=== PATIENT | male | born 1975 | race Caucasian/White ===

== ENCOUNTER 2016-07-27 22:01 | Emergency (ER) | payer SELFPAY ==
[2016-07-27] MEDS ORDERED: ASPIRIN 81 MG TABLET, CHEWABLE PO ONE (22:44)
[2016-07-27] MEDS ORDERED: NORMAL SALINE 1000 ML 1,000 ML IV ONE ×2 (22:45)
[2016-07-27] MEDS ORDERED: IPRATROPIUM/ALBUTEROL 0.5-2.5 MG/3 ML AMPUL NEB ONE (22:46)
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
[2016-07-27 22:54] LABS: ABSOLUTE BASOPHILS # (AUTO) 0.1 10^3/uL (0.0-0.2); ABSOLUTE EOSINOPHILS # (AUTO) 0.3 10^3/uL (0.0-0.6); ABSOLUTE LYMPHOCYTES (AUTO) 3.4 10^3/uL (0.5-4.7); ABSOLUTE MONOCYTES (AUTO) 0.9 10^3/uL (0.1-1.4); ABSOLUTE NEUT (AUTO) 4.7 10^3/uL (1.7-8.2); BASOPHILS % (AUTO) 0.6 % (0-2); EOSINOPHILS % (AUTO) 3.3 % (0-6); HEMATOCRIT 45.1 % (37.9-51.0); HEMOGLOBIN 15.7 g/dL (13.5-17.0); LYMPHOCYTES % (AUTO) 36.3 % (13-45); MEAN CORPUSCULAR HEMOGLOBIN 33.7 pg (27.0-33.4); MEAN CORPUSCULAR HGB CONC 34.8 g/dL (32.0-36.0); MEAN CORPUSCULAR VOLUME 97 fl (80-97); MONOCYTES % (AUTO) 9.3 % (3-13); RED BLOOD COUNT 4.66 10^6/uL (4.35-5.55); RED CELL DISTRIBUTION WIDTH 13.3 % (11.5-14.0); SEGMENTED NEUTROPHILS % (AUTO) 50.5 % (42-78); WHITE BLOOD COUNT 9.4 10^3/uL (4.0-10.5)
[2016-07-27 23:07] LABS: ALANINE AMINOTRANSFERASE 20 U/L (21-72); ALBUMIN 4.1 g/dL (3.5-5.0); ALKALINE PHOSPHATASE 155 U/L (38-126); ANION GAP 13 (5-19); ASPARTATE AMINO TRANSFERASE 21 U/L (17-59); BILIRUBIN,DIRECT 0.2 mg/dL (0.0-0.4); BILIRUBIN,TOTAL 0.5 mg/dL (0.2-1.3); BLOOD UREA NITROGEN 10 mg/dL (7-20); CALCIUM 9.5 mg/dL (8.4-10.2); CARBON DIOXIDE 25 mmol/L (22-30); CHLORIDE 103 mmol/L (98-107); CREATINE KINASE 57 U/L (55-170); CREATININE RESULT 0.63 mg/dL (0.52-1.25); GLUCOSE 304 mg/dL (75-110); POTASSIUM 4.1 mmol/L (3.6-5.0); SODIUM 140.6 mmol/L (137-145); TOTAL PROTEIN 7.3 g/dL (6.3-8.2)
[2016-07-27 23:18] LABS: CREATINE KINASE MB 0.38 ng/mL (<4.55)
[2016-07-27 23:21] LABS: TROPONIN I < 0.012 ng/mL
[2016-07-28 02:07] VITALS: BP 104/52
--- NOTE | 2016-07-28 07:40 | EKG REPORT ---
SEVERITY:- BORDERLINE ECG - SINUS RHYTHM PROBABLE LEFT ATRIAL ABNORMALITY : Confirmed by: Cedric Bagley MD 28-Jul-2016 07:39:26
== END 2016-07-28 02:14 | disposition home or self-care (01) ==
LOC: ER 22:01
DX: R07.9 Chest pain, unspecified (principal); H53.9 Unspecified visual disturbance; F17.200 Nicotine dependence, unspecified, uncomplicated; R73.9 Hyperglycemia, unspecified
CPT/HCPCS: 93005; 94640; 99285; 96360; 96361; 36415; 82553; 82550; 85025; 80053; 84484; 71010; 70450; 93010; J7030; J7620

== ENCOUNTER 2017-05-13 15:40 | Emergency (ER) | payer SELFPAY ==
[2017-05-13] MEDS ORDERED: IPRATROPIUM/ALBUTEROL 0.5-2.5 MG/3 ML AMPUL NEB ONE (16:01)
[2017-05-13] MEDS ORDERED: HYDROCODONE BIT/HOMATROPINE 5-1.5 MG TABLET PO ONE (16:01)
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
--- NOTE | 2017-05-13 16:24 | RADIOLOGY REPORT (SQ) ---
EXAM DESCRIPTION: CHEST PA/LAT COMPLETED DATE/TIME: 05/13/2017 4:12 pm REASON FOR STUDY: cough , left lower lobe pain COMPARISON: Chest x-ray 11/03/2015, 07/27/2016. EXAM PARAMETERS: NUMBER OF VIEWS: two views TECHNIQUE: Digital Frontal and Lateral radiographic views of the chest acquired. RADIATION DOSE: NA LIMITATIONS: none FINDINGS: LUNGS AND PLEURA: No consolidation, pneumothorax or pleural effusion. MEDIASTINUM AND HILAR STRUCTURES: No masses or contour abnormalities. HEART AND VASCULAR STRUCTURES: Heart normal size. No evidence for failure. BONES: No acute findings. HARDWARE: None in the chest. IMPRESSION: No acute radiographic finding in the chest. TECHNICAL DOCUMENTATION: JOB ID: [id number] 2010 [employer]- All Rights Reserved
[2017-05-13 17:02] VITALS: BP 126/69
== END 2017-05-13 17:10 | disposition home or self-care (01) ==
LOC: ER 15:40
DX: J18.1 Lobar pneumonia, unspecified organism (principal); R07.89 Other chest pain; R05 Cough; R09.81 Nasal congestion; F17.210 Nicotine dependence, cigarettes, uncomplicated
CPT/HCPCS: 99406; 94640; 99283; 71046; J7620

== ENCOUNTER 2017-05-18 14:16 | Inpatient (IN) | payer SELFPAY ==
[2017-05-18] MEDS ORDERED: ASPIRIN 81 MG TABLET, CHEWABLE PO ONE (14:31)
[2017-05-18 14:52] LABS: ABSOLUTE BASOPHILS # (AUTO) 0.2 10^3/uL (0.0-0.2); ABSOLUTE EOSINOPHILS # (AUTO) 0.3 10^3/uL (0.0-0.6); ABSOLUTE LYMPHOCYTES (AUTO) 3.3 10^3/uL (0.5-4.7); ABSOLUTE MONOCYTES (AUTO) 1.1 10^3/uL (0.1-1.4); ABSOLUTE NEUT (AUTO) 11.2 10^3/uL (1.7-8.2); BASOPHILS % (AUTO) 1.3 % (0-2); EOSINOPHILS % (AUTO) 1.7 % (0-6); HEMATOCRIT 46.4 % (37.9-51.0); HEMOGLOBIN 15.9 g/dL (13.5-17.0); LYMPHOCYTES % (AUTO) 20.5 % (13-45); MEAN CORPUSCULAR HEMOGLOBIN 33.2 pg (27.0-33.4); MEAN CORPUSCULAR HGB CONC 34.4 g/dL (32.0-36.0); MEAN CORPUSCULAR VOLUME 97 fl (80-97); MONOCYTES % (AUTO) 6.9 % (3-13); PLATELET COUNT 400 10^3/uL (150-450); RED CELL DISTRIBUTION WIDTH 13.3 % (11.5-14.0); SEGMENTED NEUTROPHILS % (AUTO) 69.6 % (42-78); TOTAL CELLS COUNTED % (AUTO) 100 %; WHITE BLOOD COUNT 16.1 10^3/uL (4.0-10.5)
[2017-05-18] MEDS ORDERED: KETOROLAC TROMETHAMINE INJ/PF 30 MG/1 ML SDV IV ONE (14:57)
[2017-05-18] MEDS ORDERED: NORMAL SALINE 1000 ML 1,000 ML IV ONE ×3 (14:57→18:11)
[2017-05-18] MEDS ORDERED: ONDANSETRON HCL INJ/PF 4 MG/2 ML SDV IV ONE (15:02)
--- NOTE | 2017-05-18 15:04 | RADIOLOGY REPORT (SQ) ---
EXAM DESCRIPTION: CHEST PA/LAT COMPLETED DATE/TIME: 05/18/2017 2:54 pm REASON FOR STUDY: cp COMPARISON: 05/13/2017. EXAM PARAMETERS: NUMBER OF VIEWS: two views TECHNIQUE: Digital Frontal and Lateral radiographic views of the chest acquired. RADIATION DOSE: NA LIMITATIONS: Image is rotated. FINDINGS: LUNGS AND PLEURA: Streaky perihilar densities. Indistinct density in the left lung base. Possible left perihilar density. No pleural effusion. MEDIASTINUM AND HILAR STRUCTURES: No masses or contour abnormalities. HEART AND VASCULAR STRUCTURES: Heart normal size. No evidence for failure. BONES: No acute findings. HARDWARE: None in the chest. OTHER: No other significant finding. IMPRESSION: POSSIBLE VIRAL ILLNESS OR ATYPICAL INFECTION. SUSPECT DEVELOPING INFILTRATE IN THE LEFT PERIHILAR REGION AND LEFT LUNG BASE. TECHNICAL DOCUMENTATION: JOB ID: [id number] [employer]- All Rights Reserved
[2017-05-18 15:07] LABS: ALANINE AMINOTRANSFERASE 38 U/L (21-72); ALBUMIN 4.4 g/dL (3.5-5.0); ALKALINE PHOSPHATASE 91 U/L (38-126); ANION GAP 12 (5-19); ASPARTATE AMINO TRANSFERASE 24 U/L (17-59); BILIRUBIN,DIRECT 0.5 mg/dL (0.0-0.4); BILIRUBIN,TOTAL 0.6 mg/dL (0.2-1.3); BLOOD UREA NITROGEN 13 mg/dL (7-20); CARBON DIOXIDE 30 mmol/L (22-30); CHLORIDE 100 mmol/L (98-107); CREATINE KINASE 52 U/L (55-170); GLUCOSE 224 mg/dL (75-110); POTASSIUM 4.1 mmol/L (3.6-5.0); SODIUM 142.1 mmol/L (137-145); TOTAL PROTEIN 8.4 g/dL (6.3-8.2)
[2017-05-18 15:18] LABS: CREATINE KINASE MB 0.32 ng/mL (<4.55)
[2017-05-18 15:19] LABS: TROPONIN I < 0.012 ng/mL
--- NOTE | 2017-05-18 16:18 | RADIOLOGY REPORT (SQ) ---
EXAM DESCRIPTION: CTA CHEST COMPLETED DATE/TIME: 05/18/2017 3:56 pm REASON FOR STUDY: elevate didime COMPARISON: CT angio chest 05/23/2015 TECHNIQUE: CT scan of the chest performed using helical scanning technique with dynamic intravenous contrast injection. Images reviewed with lung, soft tissue and bone windows. Reconstructed coronal and sagittal MPR images reviewed. Additional 3 dimensional post-processing performed to develop Maximal Intensity Projection images (MD P). All images stored on PACS. All CT scanners at this facility use dose modulation, iterative reconstruction, and/or weight based d osing when appropriate to reduce radiation dose to as low as reasonably achievable (ALARA). [facility]: Dose Right [facility]: CareDose [facility]: Dose Right [facility]: Teradose 4D [facility]: [email or web address] CONTRAST TYPE AND DOSE: contrast/concentration: Isovue 370.00 mg/ml; Total Contrast Delivered: 80.0 ml; Total Saline Delivered: 80.0 ml Contrast bolus optimized for the pulmonary arteries. Not diagnostic for the aorta. RENAL FUNCTION: Creatinine 0.67 RADIATION DOSE: CT Rad equipment meets quality standard of care and radiation dose reduction techniq ues were employed. CTDIvol: 19.8 - 20.3 mGy. DLP: 740 mGy-cm. . LIMITATIONS: None. FINDINGS: LUNGS AND PLEURA: In the posterior aspect left lower lobe, axial image 45 through 52, ther e is a wedge-shaped peripheral areas consolidation worrisome for small pulmonary infarct. Trace left pleural effusion. Patchy airspace disease just above the left hemidiaphragm. Right lung well inflated and clear. AORTA AND GREAT VESSELS: No aneurysm. Contrast bolus not optimized for the aorta. HEART: No pericardial effusion. No significant coronary artery calcifications. PULMONARY ARTERIES: Small emboli are seen to the segmental left lower lobe pulmonary vessels. HILAR AND MEDIASTINAL STRUCTURES: No identified masses or abnormal nodes. HARDWARE: None in the chest. UPPER ABDOMEN: No significant findings. Limited exam. THYROID AND OTHER SOFT TISSUES: No masses. No adenopathy. BONES: No acute or significant finding. 3D MIPS: Confirm above findings. OTHER: No other significant finding. IMPRESSION: Study positive for small segmental pulmonary emboli to the left lower lobe. Patchy left basilar airspace disease with trace left pleural effusion COMMENT: Quality ID # [id number]: Final reports with documentation of one or more dose reduction techniques (e.g., Automated exposure control, adjustment of the mA and/or kV according to patient size, use of iterative reconstruction technique) TECHNICAL DOCUMENTATION: JOB ID: [id number] [employer]- All Rights Reserved
[2017-05-18] MEDS ORDERED: LEVOFLOXACIN 500 MG/D5W RTU 500 MG/100 ML RTUPB IV ONE (16:40)
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
[2017-05-18 17:18] LABS: PROTHROMBIN TIME 12.8 SEC (11.4-15.4)
[2017-05-18 17:19] LABS: PARTIAL THROMBOPLASTIN TIME 29.7 SEC (23.5-35.8)
[2017-05-18] MEDS: ENOXAPARIN SODIUM INJ 100 MG/1 ML DISP.SYRIN SUBCUT SCH (18:22)
--- NOTE | 2017-05-18 18:35 | EKG REPORT ---
SEVERITY:- BORDERLINE ECG - SINUS RHYTHM NONSPECIFIC ST-T CHANGES- INFERIOR LEADS : Confirmed by: Cedric Bagley MD 18-May-2017 18:34:30
[2017-05-18] MEDS ORDERED: ALBUTEROL SULFATE HFA (90 MCG/PUFF) 200 PUFF/8.5 GM MDI IH SCH (19:30)
[2017-05-18] MEDS ORDERED: DEXTROSE 40% GEL 15 GM TUBE PO PRN ×2 (19:31)
[2017-05-18] MEDS ORDERED: GLUCAGON,HUMAN RECOMB 1 MG INJ IM PRN (19:31)
[2017-05-18] MEDS ORDERED: DEXTROSE 50%-WATER 25 GM/50 ML DISP.SYRIN IV PRN ×2 (19:31)
[2017-05-18] MEDS ORDERED: NICOTINE 21 MG/24 HR PATCH.TD24 TD ONE (20:00)
[2017-05-18] MEDS ORDERED: NORMAL SALINE 1000 ML 1,000 ML IV PRN (20:00)
--- NOTE | 2017-05-18 20:00 | PDOC H&P ---
History of Present Illness Admission Date/PCP: 05/18/17 17:27 Patient complains of: pleuritic type chest pain, weakness History of Present Illness: IGNACIO LOPEZ is a 42 year old male who was seen in our ED a few days ago. He was discharged on a Z-Josias for an upper respiratory tract infection. Unfortunately over the next few days the patient began to feel worse. Began to have left-sided chest pain with inspiration. Became weaker. He came back to the ER via ambulance. The ER has diagnosed him with a pulmonary embolus after elevated d-dimer led to CT angiogram of the chest. He has also been diagnosed with pneumonia and has been started on Levaquin. His anticoagulation with Lovenox has been started as well. The patient is found to have elevated CBGs and no diagnosis of diabetes. His weakness has gotten worse over the last few days. It is nonspecific. No fevers or chills. He is coughing but has no sputum production at this time. 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 Smoking Status: Current Every Day Smoker Cigarettes Packs Per Day: 1.5 Frequency of Alcohol Use: None Hx Recreational Drug Use: No Drugs: None Hx Prescription Drug Abuse: No Past Social History Note: Patient is in the ER with his riki Up. Her phone number is [phone]. They live together locally. - Advance Directive Resuscitation Status: Full Code Family History Family History: CAD, Other - Patient states that his father and grandmother both with complications related to heart disease. He does not keep in touch with his family so otherwise does not know the history of his other family members. Parental Family History Reviewed: Yes Children Family History Reviewed: Yes Sibling(s) Family History Reviewed.: Yes Medication/Allergy Home Medications: No Home Medications 05/18/17 Allergies/Adverse Reactions: Penicillins Adverse Reaction (Severe, Verified 05/18/17 19:42) Unknown reaction oxycodone Adverse Reaction (Verified 05/18/17 19:42) Review of Systems Constitutional: PRESENT: fatigue Eyes: ABSENT: visual disturbances Ears: ABSENT: hearing changes Nose, Mouth, and Throat: ABSENT: headache(s) Cardiovascular: PRESENT: edema. ABSENT: chest pain, dyspnea on exertion Gastrointestinal: ABSENT: abdominal pain, constipation, diarrhea, nausea, vomiting Musculoskeletal: PRESENT: back pain Integumentary: ABSENT: wounds Neurological: PRESENT: weakness. ABSENT: confusion, focal weakness, numbness, syncope, tingling Psychiatric: ABSENT: anxiety, depression Endocrine: PRESENT: other - Patient states that he knows he has undiagnosed type 2 diabetes. Hematologic/Lymphatic: ABSENT: easy bleeding, easy bruising Physical Exam Vital Signs: Temp Pulse Resp BP Pulse Ox 31 H 128/76 H 93 05/18/17 18:01 05/18/17 18:01 05/18/17 18:01 General appearance: PRESENT: no acute distress, cooperative, disheveled, morbidly obese Head exam: PRESENT: atraumatic, normocephalic Eye exam: PRESENT: conjunctiva pink, EOMI. ABSENT: scleral icterus Ear exam: PRESENT: normal external ear exam. ABSENT: bleeding Mouth exam: PRESENT: moist, neck supple, tongue midline Neck exam: ABSENT: lymphadenopathy, tracheal deviation Respiratory exam: PRESENT: symmetrical, tachypnea, unlabored, wheezes, other - Decreased breath sounds left base.. ABSENT: accessory muscle use, chest wall tenderness Pulses: PRESENT: normal radial pulses Vascular exam: PRESENT: normal capillary refill GI/Abdominal exam: PRESENT: normal bowel sounds, soft. ABSENT: ascites, diminished bowel sounds, distended, firm, guarding, rebound, rigid, tenderness Rectal exam: PRESENT: deferred Extremities exam: ABSENT: pedal edema Musculoskeletal exam: PRESENT: ambulatory Neurological exam: PRESENT: alert, awake, oriented to person, oriented to place , oriented to time, oriented to situation, CN II-XII grossly intact Psychiatric exam: PRESENT: appropriate affect. ABSENT: agitated, anxious Skin exam: PRESENT: dry, intact. ABSENT: mottled Results Impressions: Chest X-Ray 05/18/17 14:31 IMPRESSION: POSSIBLE VIRAL ILLNESS OR ATYPICAL INFECTION. SUSPECT DEVELOPING INFILTRATE IN THE LEFT PERIHILAR REGION AND LEFT LUNG BASE. Chest/Abdomen CTA 05/18/17 15:18 IMPRESSION: Study positive for small segmental pulmonary emboli to the left lower lobe. Patchy left basilar airspace disease with trace left pleural effusion Assessment & Plan - Diagnosis (1) Type 2 diabetes mellitus Qualifiers: Diabetes mellitus complication status: with hyperglycemia Is this a current diagnosis for this admission?: Yes Plan: Patient states that his blood sugars run around 250. When they are lower he feels dizzy and weak and overall bad. I will check a hemoglobin A1c. We will put him on a diabetic diet. We will start him on acting insulin before meals and at bedtime and consider an oral agent tomorrow. I will order diabetic education. We discussed the importance of diabetic control and that early control can prevent significant life-threatening complications. (2) Chest pain Qualifiers: Chest pain type: chest pain on breathing Qualified Code(s): R07.1 - Chest pain on breathing; R07.81 - Pleurodynia Is this a current diagnosis for this admission?: Yes Plan: This is not severe. It is likely due to left lower lobe pneumonia as he has decreased breath sounds in the left base. I have ordered Tylenol 650 mg p.o. every 4 hours as needed pain 3-5. Patient had a negative troponin in the ER. I will order 2 more as this patient does have a history of significant coronary disease. (3) Pneumonia Qualifiers: Pneumonia type: due to unspecified organism Laterality: left Lung location: lower lobe of lung Qualified Code(s): J18.1 - Lobar pneumonia, unspecified organism Is this a current diagnosis for this admission?: Yes Plan: Patient has decreased breath sounds in the left lung base, he was treated with a Z-Josias for URI and worsened with that, he feels weak and is coughing. We will continue with Levaquin at 750 mg p.o. daily possibly for 7 days total. (4) Pulmonary embolism Is this a current diagnosis for this admission?: Yes Plan: Elevated d-dimer and positive CTA, small PE, unknown acuity. Given these things he will be treated with Lovenox which has been dosed with pharmacy and the ER physician. I will continue that dosing. We may need case management on board to help with the cost of the Lovenox. (5) Coronary artery disease Is this a current diagnosis for this admission?: Yes Plan: Patient reports he has had 2 MIs in the past. He is not on cardiac meds. He also has undiagnosed diabetes. He has chest pain but it is pleuritic and I do not think it is cardiac however 2 troponins are pending. Protein was negative. He has reasons other than coronary artery disease for his chest pain. I have consulted social work to assist with possible sliding scale clinic and reduce cost medications. I discussed the dangers of untreated heart disease. (6) Tobacco use disorder, continuous Is this a current diagnosis for this admission?: Yes Plan: Patient not interested in long-term cessation. I started a nicotine patch 21 mg every 24 hours. (7) Obesity Qualifiers: Obesity type: due to excess calories Serious obesity comorbidity presence: with serious comorbidity Is this a current diagnosis for this admission?: Yes Plan: Patient and I discussed treatment of diabetes, tobacco cessation, heart disease and I felt that he was overwhelmed enough so that bringing up the importance of weight loss would not have been appropriate. Possibly tomorrow or before discharge weight loss and its importance can be discussed with this patient. (8) Tachycardia with heart rate 121-140 beats per minute Is this a current diagnosis for this admission?: Yes Plan: Patient had a heart rate in the 130s in the ER. This is probably related to a combination of his pneumonia and pulmonary embolus. However he does have coronary artery disease is untreated and we are checking troponins. Being admitted on telemetry. IV fluids will be ordered. - Time Time Spent: Greater than 70 Minutes Smoking Cessation Education: 3 to 10 minutes Medications reviewed and adjusted accordingly: Yes Anticipated discharge: Home Within: within 24 hours - Inpatient Certification Based on my medical assessment, after consideration of the patient's comorbidities, presenting symptoms, or acuity I expect that the services needed warrant INPATIENT care.: Yes I certify that my determination is in accordance with my understanding of Medicare's requirements for reasonable and necessary INPATIENT services [42 CFR 412.3e].: Yes Medical Necessity: Significant Comorbidiites Make Outpatient Treatment Too Risky , Need Close Monitoring Due to Risk of Patient Decompensation, Need For IV Fluids, Need For Continuous Telemetry Monitoring Post Hospital Care: D/C Insurance Claim Representative Documentation
[2017-05-18] MEDS: IPRATROPIUM/ALBUTEROL 0.5-2.5 MG/3 ML AMPUL NEB PRN (20:21)
[2017-05-18 20:29] LABS: CHOLESTEROL 220.67 mg/dL (0-200); TRIGLYCERIDES 256 mg/dL (<150)
[2017-05-18 20:40] LABS: DIRECT LDL 144 mg/dL (<100)
[2017-05-18 20:43] LABS: VLDL CHOLESTEROL 51.2 mg/dL (10-31)
[2017-05-18] MEDS: ACETAMINOPHEN 325 MG TABLET PO PRN (21:29)
[2017-05-19] MEDS: IPRATROPIUM/ALBUTEROL 0.5-2.5 MG/3 ML AMPUL NEB PRN ×6 (00:08→20:11)
[2017-05-19] MEDS ORDERED: INFLUENZA ADLT QUAD (36MOS+) 2017-18 VAC 0.5 ML SYR IM PRN (01:18)
[2017-05-19 02:32] LABS: CREATINE KINASE MB < 0.22 ng/mL (<4.55); TROPONIN I < 0.012 ng/mL
[2017-05-19] MEDS: ACETAMINOPHEN 325 MG TABLET PO PRN ×2 (02:50→10:35)
[2017-05-19] MEDS ORDERED: MORPHINE SULFATE 10 MG/ML INJ IV ONE (03:00)
[2017-05-19 05:30] LABS: HEMATOCRIT 39.1 % (37.9-51.0); MEAN CORPUSCULAR HEMOGLOBIN 32.7 pg (27.0-33.4); MEAN CORPUSCULAR VOLUME 96 fl (80-97); PLATELET COUNT 254 10^3/uL (150-450); RED BLOOD COUNT 4.07 10^6/uL (4.35-5.55); WHITE BLOOD COUNT 17.5 10^3/uL (4.0-10.5)
[2017-05-19 05:45] LABS: HEMOGLOBIN 13.3 g/dL (13.5-17.0)
[2017-05-19 05:55] LABS: ANION GAP 8 (5-19); BLOOD UREA NITROGEN 10 mg/dL (7-20); CALCIUM 9.1 mg/dL (8.4-10.2); CARBON DIOXIDE 26 mmol/L (22-30); CHLORIDE 100 mmol/L (98-107); CREATINE KINASE 34 U/L (55-170); GLUCOSE 370 mg/dL (75-110); POTASSIUM 3.9 mmol/L (3.6-5.0); SODIUM 134.1 mmol/L (137-145)
[2017-05-19] MEDS: INSULIN LISPRO 100 UNIT/ML 3 ML VIAL SUBCUT PRN ×4 (08:44→21:40)
--- NOTE | 2017-05-19 08:52 | EKG REPORT ---
SEVERITY:- BORDERLINE ECG - SINUS TACHYCARDIA PROBABLE LEFT ATRIAL ABNORMALITY : Confirmed by: Cedric Bagley MD 19-May-2017 08:51:31
[2017-05-19 09:09] LABS: CREATINE KINASE MB < 0.22 ng/mL (<4.55); TROPONIN I < 0.012 ng/mL
[2017-05-19] MEDS: LEVOFLOXACIN 750 MG TABLET PO SCH (10:28)
[2017-05-19] MEDS: NICOTINE 21 MG/24 HR PATCH.TD24 TD SCH (10:28)
[2017-05-19] MEDS: ENOXAPARIN SODIUM INJ 100 MG/1 ML DISP.SYRIN SUBCUT SCH ×2 (10:28→21:39)
--- NOTE | 2017-05-19 14:19 | PDOC PROGRESS REPORT ---
Subjective Progress Note for:: 05/19/17 Subjective:: Doing better from respiratory standpoint. Major complaint is pain with deep breaths and left shoulder pain. Continues to have very elevated blood sugars. states that he has been on oral diabetes meds but never on insulin. Denies fevers, chills, CP, abdominal pain/NV Reason For Visit: TACHYCARDIA,PE,PNEUMONIA Physical Exam Vital Signs: Temp Pulse Resp BP Pulse Ox 99.0 F 106 H 20 128/71 H 94 05/19/17 12:36 05/19/17 12:36 05/19/17 12:36 05/19/17 12:36 05/19/17 12:36 Intake & Output 05/18/17 05/19/17 05/20/17 06:59 06:59 06:59 Intake Total 644 598 Output Total 0 Balance 644 598 General appearance: PRESENT: no acute distress, obese Head exam: PRESENT: atraumatic, normocephalic Mouth exam: PRESENT: moist Respiratory exam: PRESENT: decreased breath sounds - L>R, wheezes - Occasional Cardiovascular exam: PRESENT: RRR, tachycardia GI/Abdominal exam: PRESENT: soft. ABSENT: distended, tenderness Neurological exam: PRESENT: alert, awake, CN II-XII grossly intact Results Laboratory Results: 05/19/17 04:48 05/19/17 04:48 05/19/17 05/19/17 04:48 04:48 WBC 17.5 H RBC 4.07 L Hgb 13.3 L D Hct 39.1 MCV 96 MCH 32.7 MCHC 34.0 RDW 13.0 Plt Count 254 Sodium 134.1 L Potassium 3.9 Chloride 100 Carbon Dioxide 26 Anion Gap 8 BUN 10 Creatinine 0.73 Est GFR ( Amer) > 60 Est GFR (Non-Af Amer) > 60 Glucose 370 H Calcium 9.1 05/18/17 05/19/17 05/19/17 19:17 01:48 01:48 Creatine Kinase 37 L CK-MB (CK-2) < 0.22 Troponin I < 0.012 < 0.012 05/19/17 05/19/17 04:48 08:23 Creatine Kinase 34 L CK-MB (CK-2) < 0.22 Troponin I < 0.012 Impressions: Chest X-Ray 05/18/17 14:31 IMPRESSION: POSSIBLE VIRAL ILLNESS OR ATYPICAL INFECTION. SUSPECT DEVELOPING INFILTRATE IN THE LEFT PERIHILAR REGION AND LEFT LUNG BASE. Chest/Abdomen CTA 05/18/17 15:18 IMPRESSION: Study positive for small segmental pulmonary emboli to the left lower lobe. Patchy left basilar airspace disease with trace left pleural effusion Assessment & Plan - Diagnosis (1) Pneumonia Qualifiers: Pneumonia type: due to unspecified organism Laterality: left Lung location: lower lobe of lung Qualified Code(s): J18.1 - Lobar pneumonia, unspecified organism Is this a current diagnosis for this admission?: Yes Plan: Known left lobe infiltrate on CXR, previously treated with Zpak for URI - Blood cultures pending - Continue Levaquin 750mg PO for 7-10 days - For pain, likely multifactorial given known PE's and PNA: added Ultram 50mg PO q6 hours PRN, also has tylenol ordered - Wean down 02 as tolerated (2) Obesity Qualifiers: Obesity type: due to excess calories Serious obesity comorbidity presence: with serious comorbidity Is this a current diagnosis for this admission?: Yes (3) Type 2 diabetes mellitus Qualifiers: Diabetes mellitus complication status: with hyperglycemia Is this a current diagnosis for this admission?: Yes (4) Pulmonary embolism Qualifiers: Pulmonary embolism type: other Chronicity: unspecified Acute cor pulmonale presence: without acute cor pulmonale Qualified Code(s): I26.99 - Other pulmonary embolism without acute cor pulmonale Is this a current diagnosis for this admission?: Yes Plan: CTA PE with small subsegmental clot in LLL, etiology unclear. - Currently on Lovenox - This is likely an incidental finding, however agree with continuation of AC for now. - Oral agent (NOAC) may be appropriate at discharge (5) Chest wall pain Is this a current diagnosis for this admission?: Yes Plan: Pleurtic in nature. Troponin negative * 3. - Time Time Spent with patient: Less than 15 minutes Anticipated discharge: Home Within: within 48 hours
[2017-05-19] MEDS ORDERED: GLUCAGON,HUMAN RECOMB 1 MG INJ IM PRN (14:25)
[2017-05-19] MEDS ORDERED: DEXTROSE 40% GEL 15 GM TUBE PO PRN ×2 (14:25)
[2017-05-19] MEDS ORDERED: DEXTROSE 50%-WATER 25 GM/50 ML DISP.SYRIN IV PRN ×2 (14:25)
[2017-05-19] MEDS: TRAMADOL HCL 50 MG TABLET PO PRN (15:12)
[2017-05-19 15:58] LABS: CREATINE KINASE MB < 0.22 ng/mL (<4.55); TROPONIN I < 0.012 ng/mL
[2017-05-19] MEDS: ATORVASTATIN CALCIUM 80 MG TABLET PO SCH (21:39)
[2017-05-19] MEDS ORDERED: INSULIN GLARGINE,HUM.REC.ANLOG 300 UNIT/3 ML INSULN.PEN SUBCUT SCH (22:00)
[2017-05-20 04:52] LABS: HEMATOCRIT 41.6 % (37.9-51.0); HEMOGLOBIN 14.3 g/dL (13.5-17.0); MEAN CORPUSCULAR HEMOGLOBIN 33.2 pg (27.0-33.4); MEAN CORPUSCULAR HGB CONC 34.5 g/dL (32.0-36.0); MEAN CORPUSCULAR VOLUME 96 fl (80-97); PLATELET COUNT 237 10^3/uL (150-450); RED BLOOD COUNT 4.32 10^6/uL (4.35-5.55); RED CELL DISTRIBUTION WIDTH 13.1 % (11.5-14.0); WHITE BLOOD COUNT 16.2 10^3/uL (4.0-10.5)
[2017-05-20 05:27] LABS: ANION GAP 10 (5-19); BLOOD UREA NITROGEN 7 mg/dL (7-20); CALCIUM 9.3 mg/dL (8.4-10.2); CARBON DIOXIDE 26 mmol/L (22-30); CHLORIDE 99 mmol/L (98-107); GLUCOSE 225 mg/dL (75-110); POTASSIUM 3.9 mmol/L (3.6-5.0); SODIUM 135.3 mmol/L (137-145)
[2017-05-20] MEDS: TRAMADOL HCL 50 MG TABLET PO PRN (06:00)
[2017-05-20] MEDS: ENOXAPARIN SODIUM INJ 100 MG/1 ML DISP.SYRIN SUBCUT SCH ×2 (09:45→21:52)
[2017-05-20] MEDS: INSULIN LISPRO 100 UNIT/ML 3 ML VIAL SUBCUT PRN ×4 (09:45→21:52)
[2017-05-20] MEDS: ACETAMINOPHEN 325 MG TABLET PO PRN ×2 (09:45→17:10)
[2017-05-20] MEDS: LEVOFLOXACIN 750 MG TABLET PO SCH (09:45)
[2017-05-20] MEDS: NICOTINE 21 MG/24 HR PATCH.TD24 TD SCH (09:45)
--- NOTE | 2017-05-20 16:54 | PDOC PROGRESS REPORT ---
Subjective Progress Note for:: 05/20/17 Subjective:: About the same from respiratory standpoint compared to 05/19. Continue to endorse pain with deep breaths and left shoulder pain. Improved blood sugars wtih Lantus. Denies fevers, chills, CP, abdominal pain/NV. Willing to work with PT. Appetite good. Reason For Visit: TACHYCARDIA,PE,PNEUMONIA Physical Exam Vital Signs: Temp Pulse Resp BP Pulse Ox 98.4 F 112 H 18 122/63 93 05/20/17 15:24 05/20/17 15:58 05/20/17 15:58 05/20/17 15:24 05/20/17 15:58 Intake & Output 05/19/17 05/20/17 05/21/17 06:59 06:59 06:59 Intake Total 644 3764 572 Output Total 0 0 Balance 644 3764 572 Weight 97.4 kg Results Laboratory Results: 05/20/17 04:07 05/20/17 04:07 05/20/17 05/20/17 04:07 04:07 WBC 16.2 H RBC 4.32 L Hgb 14.3 Hct 41.6 MCV 96 MCH 33.2 MCHC 34.5 RDW 13.1 Plt Count 237 Sodium 135.3 L Potassium 3.9 Chloride 99 Carbon Dioxide 26 Anion Gap 10 BUN 7 Creatinine 0.56 Est GFR ( Amer) > 60 Est GFR (Non-Af Amer) > 60 Glucose 225 H Calcium 9.3 05/18/17 05/19/17 05/19/17 19:17 01:48 01:48 Creatine Kinase 37 L CK-MB (CK-2) < 0.22 Troponin I < 0.012 < 0.012 05/19/17 05/19/17 05/19/17 04:48 08:23 14:51 Creatine Kinase 34 L 29 L CK-MB (CK-2) < 0.22 Troponin I < 0.012 05/19/17 14:51 Creatine Kinase CK-MB (CK-2) < 0.22 Troponin I < 0.012 Impressions: Chest X-Ray 05/18/17 14:31 IMPRESSION: POSSIBLE VIRAL ILLNESS OR ATYPICAL INFECTION. SUSPECT DEVELOPING INFILTRATE IN THE LEFT PERIHILAR REGION AND LEFT LUNG BASE. Chest/Abdomen CTA 05/18/17 15:18 IMPRESSION: Study positive for small segmental pulmonary emboli to the left lower lobe. Patchy left basilar airspace disease with trace left pleural effusion Assessment & Plan - Diagnosis (1) Pneumonia Qualifiers: Pneumonia type: due to unspecified organism Laterality: left Lung location: lower lobe of lung Qualified Code(s): J18.1 - Lobar pneumonia, unspecified organism Is this a current diagnosis for this admission?: Yes Plan: Known left lobe infiltrate on CXR, previously treated with Zpak for URI - Blood cultures pending - Continue Levaquin 750mg PO for 7-10 days - For pain, likely multifactorial given known PE's and PNA: continue Ultram 50mg PO q6 hours PRN, also has tylenol ordered - Wean down 02 as tolerated (2) Obesity Qualifiers: Obesity type: due to excess calories Serious obesity comorbidity presence: with serious comorbidity Is this a current diagnosis for this admission?: Yes Plan: Counseled on weight loss and healthy diet (3) Type 2 diabetes mellitus Qualifiers: Diabetes mellitus complication status: with hyperglycemia Is this a current diagnosis for this admission?: Yes Plan: Blood sugars have been elevated 200-300, Hg A1c 12/6 on 2 - Started on Lantus 20U qhs on 05/19, mild improvement - Will increased to Lantus 30u on 05/20 + LDISS - Continue carb consistent diet (4) Pulmonary embolism Qualifiers: Pulmonary embolism type: other Chronicity: unspecified Acute cor pulmonale presence: without acute cor pulmonale Qualified Code(s): I26.99 - Other pulmonary embolism without acute cor pulmonale Is this a current diagnosis for this admission?: Yes Plan: CTA PE with small subsegmental clot in LLL, etiology unclear. - Currently on Lovenox - This is likely an incidental finding, however agree with continuation of AC for now. - Oral agent (NOAC) may be appropriate at discharge (5) Chest wall pain Is this a current diagnosis for this admission?: Yes Plan: Pleurtic in nature. Troponin negative * 3. - Time Time Spent with patient: 15-24 minutes Anticipated discharge: Home with Homehealth Within: within 48 hours
[2017-05-20] MEDS: IPRATROPIUM/ALBUTEROL 0.5-2.5 MG/3 ML AMPUL NEB PRN (18:31)
[2017-05-20] MEDS: ATORVASTATIN CALCIUM 80 MG TABLET PO SCH (21:52)
[2017-05-20] MEDS: INSULIN GLARGINE,HUM.REC.ANLOG 300 UNIT/3 ML INSULN.PEN SUBCUT SCH (21:53)
[2017-05-21] MEDS: ACETAMINOPHEN 325 MG TABLET PO PRN ×2 (00:25→06:17)
[2017-05-21 04:59] LABS: HEMATOCRIT 39.5 % (37.9-51.0); HEMOGLOBIN 13.7 g/dL (13.5-17.0); MEAN CORPUSCULAR HEMOGLOBIN 33.3 pg (27.0-33.4); MEAN CORPUSCULAR HGB CONC 34.6 g/dL (32.0-36.0); MEAN CORPUSCULAR VOLUME 96 fl (80-97); PLATELET COUNT 280 10^3/uL (150-450); RED BLOOD COUNT 4.11 10^6/uL (4.35-5.55); WHITE BLOOD COUNT 12.8 10^3/uL (4.0-10.5)
[2017-05-21 05:24] LABS: ANION GAP 14 (5-19); BLOOD UREA NITROGEN 14 mg/dL (7-20); CALCIUM 8.9 mg/dL (8.4-10.2); CARBON DIOXIDE 25 mmol/L (22-30); CHLORIDE 96 mmol/L (98-107); GLUCOSE 207 mg/dL (75-110); POTASSIUM 3.7 mmol/L (3.6-5.0); SODIUM 134.8 mmol/L (137-145)
[2017-05-21] MEDS: IPRATROPIUM/ALBUTEROL 0.5-2.5 MG/3 ML AMPUL NEB PRN ×2 (05:32→07:47)
[2017-05-21] MEDS ORDERED: HYDROCODONE BIT/HOMATROPINE 5-1.5 MG TABLET PO PRN (10:28)
[2017-05-21] MEDS: LEVOFLOXACIN 750 MG TABLET PO SCH (10:37)
[2017-05-21] MEDS: APIXABAN 5 MG TABLET PO SCH ×2 (10:37→21:53)
[2017-05-21] MEDS: NICOTINE 21 MG/24 HR PATCH.TD24 TD SCH (10:38)
[2017-05-21] MEDS: TRAMADOL HCL 50 MG TABLET PO PRN (11:39)
[2017-05-21 11:58] LABS: APPEARANCE,URINE CLEAR; BILIRUBIN,URINE NEGATIVE (NEGATIVE); COLOR,URINE YELLOW; GLUCOSE, URINE >=500 mg/dL (NEGATIVE); KETONES,URINE 80 mg/dL (NEGATIVE); LEUKOCYTE ESTERASE,URINE NEGATIVE (NEGATIVE); NITRITE,URINE NEGATIVE (NEGATIVE); PROTEIN,URINE NEGATIVE (NEGATIVE); URINE SPECIFIC GRAVITY 1.026; UROBILINOGEN,URINE NEGATIVE mg/dL (<2.0)
[2017-05-21] MEDS: INSULIN LISPRO 100 UNIT/ML 3 ML VIAL SUBCUT PRN ×3 (12:40→21:58)
[2017-05-21] MEDS: BUDESONIDE NEB 0.5 MG/2 ML AMPUL NEB SCH ×2 (13:39→19:53)
[2017-05-21] MEDS: IPRATROPIUM/ALBUTEROL 0.5-2.5 MG/3 ML AMPUL NEB SCH ×2 (13:39→19:53)
[2017-05-21] MEDS ORDERED: ONDANSETRON HCL INJ/PF 4 MG/2 ML SDV IV PRN (14:02)
--- NOTE | 2017-05-21 14:27 | PDOC PROGRESS REPORT ---
Subjective Progress Note for:: 05/21/17 Subjective:: Patient complains of cough and bilateral chest pain. Patient does not have health insurance Review of systems All organ systems evaluated and negative except as in subjective All significant laboratories and diagnostics have been reviewed Reason For Visit: TACHYCARDIA,PE,PNEUMONIA Physical Exam Vital Signs: Temp Pulse Resp BP Pulse Ox 97.6 F 105 H 24 H 123/66 94 05/21/17 08:30 05/21/17 13:39 05/21/17 13:39 05/21/17 08:30 05/21/17 13:39 Intake & Output 05/20/17 05/21/17 05/22/17 06:59 06:59 06:59 Intake Total 3764 2132 350 Output Total 0 400 Balance 3764 1732 350 Weight 97.4 kg 96.4 kg General appearance: PRESENT: cooperative, obese Head exam: PRESENT: atraumatic, normocephalic Eye exam: PRESENT: EOMI, PERRLA Ear exam: PRESENT: normal external ear exam Mouth exam: PRESENT: moist Neck exam: PRESENT: full ROM. ABSENT: JVD, lymphadenopathy, tenderness Respiratory exam: PRESENT: crackles, decreased breath sounds, tachypnea Cardiovascular exam: PRESENT: RRR. ABSENT: diastolic murmur, systolic murmur Vascular exam: PRESENT: normal capillary refill GI/Abdominal exam: PRESENT: normal bowel sounds, soft. ABSENT: tenderness Extremities exam: PRESENT: full ROM. ABSENT: joint swelling, pedal edema Musculoskeletal exam: PRESENT: ambulatory Neurological exam: PRESENT: alert, awake, oriented to person, oriented to place , oriented to time, oriented to situation, CN II-XII grossly intact Psychiatric exam: PRESENT: appropriate affect, normal mood Skin exam: PRESENT: intact, normal color Results Laboratory Results: 05/21/17 04:05 05/21/17 04:05 05/21/17 05/21/17 05/21/17 04:05 04:05 11:40 WBC 12.8 H RBC 4.11 L Hgb 13.7 Hct 39.5 MCV 96 MCH 33.3 MCHC 34.6 RDW 13.0 Plt Count 280 Sodium 134.8 L Potassium 3.7 Chloride 96 L Carbon Dioxide 25 Anion Gap 14 BUN 14 Creatinine 0.55 Est GFR ( Amer) > 60 Est GFR (Non-Af Amer) > 60 Glucose 207 H Calcium 8.9 Urine Color YELLOW Urine Appearance CLEAR Urine pH 6.0 Ur Specific [place] 1.026 Urine Protein NEGATIVE Urine Glucose (UA) >=500 H Urine Ketones 80 H Urine Blood NEGATIVE Urine Nitrite NEGATIVE Ur Leukocyte Esterase NEGATIVE Urine WBC (Auto) 1 Urine RBC (Auto) 0 05/18/17 05/19/17 05/19/17 19:17 01:48 01:48 Creatine Kinase 37 L CK-MB (CK-2) < 0.22 Troponin I < 0.012 < 0.012 05/19/17 05/19/17 05/19/17 04:48 08:23 14:51 Creatine Kinase 34 L 29 L CK-MB (CK-2) < 0.22 Troponin I < 0.012 05/19/17 14:51 Creatine Kinase CK-MB (CK-2) < 0.22 Troponin I < 0.012 Impressions: Chest X-Ray 05/18/17 14:31 IMPRESSION: POSSIBLE VIRAL ILLNESS OR ATYPICAL INFECTION. SUSPECT DEVELOPING INFILTRATE IN THE LEFT PERIHILAR REGION AND LEFT LUNG BASE. Chest/Abdomen CTA 05/18/17 15:18 IMPRESSION: Study positive for small segmental pulmonary emboli to the left lower lobe. Patchy left basilar airspace disease with trace left pleural effusion Assessment & Plan - Diagnosis (1) Chest pain Qualifiers: Chest pain type: chest pain on breathing Qualified Code(s): R07.1 - Chest pain on breathing; R07.81 - Pleurodynia Is this a current diagnosis for this admission?: Yes Plan: Musculoskeletal and secondary to cough. To provide anti-tussive. Request incentive spirometer (2) Pneumonia Qualifiers: Pneumonia type: due to unspecified organism Laterality: left Lung location: lower lobe of lung Qualified Code(s): J18.1 - Lobar pneumonia, unspecified organism Is this a current diagnosis for this admission?: Yes Plan: Continue Levaquin p.o. (3) Pulmonary embolism Qualifiers: Pulmonary embolism type: other Chronicity: acute Acute cor pulmonale presence: without acute cor pulmonale Qualified Code(s): I26.99 - Other pulmonary embolism without acute cor pulmonale Is this a current diagnosis for this admission?: Yes Plan: To discontinue Lovenox subcu and placed on Eliquis. To consult case management to assist since does not have insurance (4) Tobacco use disorder, continuous Is this a current diagnosis for this admission?: Yes Plan: Educated about quitting. Continue nicotine patch (5) Type 2 diabetes mellitus Qualifiers: Diabetes mellitus complication status: with hyperglycemia Is this a current diagnosis for this admission?: Yes Plan: Continue current management - Time Time Spent with patient: 15-24 minutes Medications reviewed and adjusted accordingly: Yes Anticipated discharge: Home Within: within 48 hours - Inpatient Certification Based on my medical assessment, after consideration of the patient's comorbidities, presenting symptoms, or acuity I expect that the services needed warrant INPATIENT care.: Yes I certify that my determination is in accordance with my understanding of Medicare's requirements for reasonable and necessary INPATIENT services [42 CFR 412.3e].: Yes Medical Necessity: Need Close Monitoring Due to Risk of Patient Decompensation
[2017-05-21] MEDS: BENZONATATE 100 MG CAPSULE PO SCH ×2 (16:25→21:54)
[2017-05-21] MEDS: ATORVASTATIN CALCIUM 80 MG TABLET PO SCH (21:53)
[2017-05-21] MEDS: LACTULOSE SYRUP 20 GM/30 ML UDCUP PO SCH (21:54)
[2017-05-21] MEDS: INSULIN GLARGINE,HUM.REC.ANLOG 300 UNIT/3 ML INSULN.PEN SUBCUT SCH (21:55)
[2017-05-22] MEDS: BUDESONIDE NEB 0.5 MG/2 ML AMPUL NEB SCH ×4 (02:37→21:04)
[2017-05-22] MEDS: TRAMADOL HCL 50 MG TABLET PO PRN (04:39)
[2017-05-22] MEDS: BENZONATATE 100 MG CAPSULE PO SCH ×3 (06:29→22:42)
[2017-05-22] MEDS: IPRATROPIUM/ALBUTEROL 0.5-2.5 MG/3 ML AMPUL NEB SCH ×3 (08:02→21:04)
[2017-05-22] MEDS: INSULIN LISPRO 100 UNIT/ML 3 ML VIAL SUBCUT PRN ×4 (08:40→22:42)
[2017-05-22] MEDS: LEVOFLOXACIN 750 MG TABLET PO SCH (10:14)
[2017-05-22] MEDS: NICOTINE 21 MG/24 HR PATCH.TD24 TD SCH (10:14)
[2017-05-22] MEDS: LACTULOSE SYRUP 20 GM/30 ML UDCUP PO SCH ×2 (10:15→22:43)
[2017-05-22] MEDS: APIXABAN 5 MG TABLET PO SCH ×2 (10:15→22:43)
[2017-05-22] MEDS ORDERED: FUROSEMIDE INJ/PF 20 MG/2 ML SDV IV ONE (13:47)
--- NOTE | 2017-05-22 13:54 | PDOC PROGRESS REPORT ---
Subjective Progress Note for:: 05/22/17 Subjective:: Patient refers that pain and cough is better. Nurse reported that patient had been requiring up to 5 L of O2 since desaturates. Talk to case management to assist with health insurance issues and to get assistance for Eliquis Review of systems All organ systems evaluated and negative except as in subjective All significant laboratories and diagnostics have been reviewed Reason For Visit: TACHYCARDIA,PE,PNEUMONIA Physical Exam Vital Signs: Temp Pulse Resp BP Pulse Ox 98.4 F 102 H 16 128/82 H 96 05/22/17 11:42 05/22/17 11:42 05/22/17 11:42 05/22/17 11:42 05/22/17 11:42 Intake & Output 05/21/17 05/22/17 05/23/17 06:59 06:59 06:59 Intake Total 2132 1137 Output Total 400 Balance 1732 1137 Weight 96.4 kg General appearance: PRESENT: cooperative, morbidly obese Head exam: PRESENT: atraumatic, normocephalic Eye exam: PRESENT: conjunctiva pink, EOMI, PERRLA Ear exam: PRESENT: normal external ear exam Mouth exam: PRESENT: moist Neck exam: PRESENT: full ROM. ABSENT: JVD Respiratory exam: PRESENT: clear to auscultation nevaeh Cardiovascular exam: PRESENT: RRR. ABSENT: diastolic murmur, systolic murmur Vascular exam: PRESENT: normal capillary refill GI/Abdominal exam: PRESENT: normal bowel sounds, soft. ABSENT: tenderness Extremities exam: PRESENT: full ROM. ABSENT: pedal edema Musculoskeletal exam: PRESENT: ambulatory Neurological exam: PRESENT: alert, awake, oriented to person, oriented to place , oriented to time, oriented to situation, CN II-XII grossly intact Psychiatric exam: PRESENT: appropriate affect, normal mood Skin exam: PRESENT: intact, normal color Results Laboratory Results: 05/21/17 04:05 05/21/17 04:05 05/18/17 05/19/17 05/19/17 19:17 01:48 01:48 Creatine Kinase 37 L CK-MB (CK-2) < 0.22 Troponin I < 0.012 < 0.012 05/19/17 05/19/17 05/19/17 04:48 08:23 14:51 Creatine Kinase 34 L 29 L CK-MB (CK-2) < 0.22 Troponin I < 0.012 05/19/17 14:51 Creatine Kinase CK-MB (CK-2) < 0.22 Troponin I < 0.012 Impressions: Chest X-Ray 05/18/17 14:31 IMPRESSION: POSSIBLE VIRAL ILLNESS OR ATYPICAL INFECTION. SUSPECT DEVELOPING INFILTRATE IN THE LEFT PERIHILAR REGION AND LEFT LUNG BASE. Chest/Abdomen CTA 05/18/17 15:18 IMPRESSION: Study positive for small segmental pulmonary emboli to the left lower lobe. Patchy left basilar airspace disease with trace left pleural effusion Assessment & Plan - Diagnosis (1) Chest pain Qualifiers: Chest pain type: chest pain on breathing Qualified Code(s): R07.1 - Chest pain on breathing; R07.81 - Pleurodynia Is this a current diagnosis for this admission?: Yes Plan: Musculoskeletal and secondary to cough. Reorder incentive spirometer and continue antitussive medication (2) Pneumonia Qualifiers: Pneumonia type: due to unspecified organism Laterality: left Lung location: lower lobe of lung Qualified Code(s): J18.1 - Lobar pneumonia, unspecified organism Is this a current diagnosis for this admission?: Yes Plan: Continue Levaquin p.o. (3) Pulmonary embolism Qualifiers: Pulmonary embolism type: other Chronicity: acute Acute cor pulmonale presence: without acute cor pulmonale Qualified Code(s): I26.99 - Other pulmonary embolism without acute cor pulmonale Is this a current diagnosis for this admission?: Yes Plan: Continue Eliquis and to order echocardiogram since desaturating . Case management to assist since does not have insurance (4) Tobacco use disorder, continuous Is this a current diagnosis for this admission?: Yes Plan: Educated about quitting. Continue nicotine patch (5) Type 2 diabetes mellitus Qualifiers: Diabetes mellitus complication status: with hyperglycemia Is this a current diagnosis for this admission?: Yes Plan: Increase Lantus, pre-meal Humalog and continue Humalog sliding scale (6) Acute respiratory failure with hypoxia Is this a current diagnosis for this admission?: Yes Plan: Continue oxygen supplementation and wean off as tolerated. Order echocardiogram and a one-time dose of Lasix IV - Time Time Spent with patient: 15-24 minutes Medications reviewed and adjusted accordingly: Yes Anticipated discharge: Home Within: within 72 hours - Inpatient Certification Based on my medical assessment, after consideration of the patient's comorbidities, presenting symptoms, or acuity I expect that the services needed warrant INPATIENT care.: Yes I certify that my determination is in accordance with my understanding of Medicare's requirements for reasonable and necessary INPATIENT services [42 CFR 412.3e].: Yes Medical Necessity: Need For Continuous Telemetry Monitoring - Oxygen supplementation, Need for Nebulizer Therapy and Monitoring of Response
[2017-05-22] MEDS: INSULIN LISPRO 100 UNIT/ML 3 ML VIAL SUBCUT SCH (16:02)
[2017-05-22] MEDS: INSULIN GLARGINE,HUM.REC.ANLOG 300 UNIT/3 ML INSULN.PEN SUBCUT SCH (22:42)
[2017-05-22] MEDS: ATORVASTATIN CALCIUM 80 MG TABLET PO SCH (22:42)
[2017-05-23] MEDS: BUDESONIDE NEB 0.5 MG/2 ML AMPUL NEB SCH ×4 (01:58→19:44)
[2017-05-23 05:01] LABS: HEMATOCRIT 39.5 % (37.9-51.0); HEMOGLOBIN 13.5 g/dL (13.5-17.0); MEAN CORPUSCULAR HGB CONC 34.3 g/dL (32.0-36.0); MEAN CORPUSCULAR VOLUME 96 fl (80-97); PLATELET COUNT 320 10^3/uL (150-450); RED BLOOD COUNT 4.11 10^6/uL (4.35-5.55); RED CELL DISTRIBUTION WIDTH 13.1 % (11.5-14.0); WHITE BLOOD COUNT 11.2 10^3/uL (4.0-10.5)
[2017-05-23 05:23] LABS: ANION GAP 12 (5-19); BLOOD UREA NITROGEN 11 mg/dL (7-20); CALCIUM 9.2 mg/dL (8.4-10.2); CARBON DIOXIDE 30 mmol/L (22-30); CHLORIDE 90 mmol/L (98-107); GLUCOSE 179 mg/dL (75-110); MAGNESIUM 2.1 mg/dL (1.6-2.3); POTASSIUM 3.7 mmol/L (3.6-5.0); SODIUM 132.2 mmol/L (137-145)
[2017-05-23] MEDS: BENZONATATE 100 MG CAPSULE PO SCH ×3 (05:37→21:49)
[2017-05-23 07:54] LABS: APPEARANCE,URINE CLEAR; BILIRUBIN,URINE NEGATIVE (NEGATIVE); COLOR,URINE YELLOW; GLUCOSE, URINE 50 mg/dL (NEGATIVE); KETONES,URINE TRACE mg/dL (NEGATIVE); LEUKOCYTE ESTERASE,URINE NEGATIVE (NEGATIVE); NITRITE,URINE NEGATIVE (NEGATIVE); PROTEIN,URINE NEGATIVE (NEGATIVE); URINE SPECIFIC GRAVITY 1.009
[2017-05-23] MEDS: IPRATROPIUM/ALBUTEROL 0.5-2.5 MG/3 ML AMPUL NEB SCH ×3 (08:18→19:43)
[2017-05-23] MEDS: TRAMADOL HCL 50 MG TABLET PO PRN (09:42)
[2017-05-23] MEDS: NICOTINE 21 MG/24 HR PATCH.TD24 TD SCH (09:46)
[2017-05-23] MEDS: INSULIN GLARGINE,HUM.REC.ANLOG 300 UNIT/3 ML INSULN.PEN SUBCUT SCH ×2 (09:46→21:48)
[2017-05-23] MEDS: LEVOFLOXACIN 750 MG TABLET PO SCH (09:46)
[2017-05-23] MEDS: APIXABAN 5 MG TABLET PO SCH ×2 (09:50→21:49)
[2017-05-23] MEDS: LACTULOSE SYRUP 20 GM/30 ML UDCUP PO SCH ×2 (09:57→21:52)
[2017-05-23] MEDS: INSULIN LISPRO 100 UNIT/ML 3 ML VIAL SUBCUT SCH ×3 (11:30→17:10)
[2017-05-23] MEDS: INSULIN LISPRO 100 UNIT/ML 3 ML VIAL SUBCUT PRN ×2 (13:00→21:49)
--- NOTE | 2017-05-23 15:15 | PDOC PROGRESS REPORT ---
Subjective Progress Note for:: 05/23/17 Subjective:: Patient refers that chest pain is better. He states that incentive spirometer was brought in last night so therefore has not had an opportunity to work on it Review of systems All organ systems evaluated and negative except as in subjective All significant laboratories and diagnostics have been reviewed Reason For Visit: TACHYCARDIA,PE,PNEUMONIA Physical Exam Vital Signs: Temp Pulse Resp BP Pulse Ox 98.8 F 116 H 20 124/80 93 05/23/17 12:07 05/23/17 13:55 05/23/17 13:55 05/23/17 12:07 05/23/17 13:55 Intake & Output 05/22/17 05/23/17 05/24/17 06:59 06:59 06:59 Intake Total 1137 502 924 Output Total 350 Balance 1137 152 924 General appearance: PRESENT: cooperative, obese Head exam: PRESENT: atraumatic, normocephalic Eye exam: PRESENT: conjunctiva pink, EOMI, PERRLA Ear exam: PRESENT: normal external ear exam Mouth exam: PRESENT: moist Neck exam: PRESENT: full ROM. ABSENT: JVD, lymphadenopathy, tenderness Respiratory exam: PRESENT: clear to auscultation nevaeh, decreased breath sounds Cardiovascular exam: PRESENT: RRR. ABSENT: diastolic murmur, systolic murmur Vascular exam: PRESENT: normal capillary refill GI/Abdominal exam: PRESENT: normal bowel sounds, soft. ABSENT: tenderness Extremities exam: PRESENT: full ROM. ABSENT: joint swelling, pedal edema Musculoskeletal exam: PRESENT: ambulatory Neurological exam: PRESENT: alert, awake, oriented to person, oriented to place , oriented to time, oriented to situation, CN II-XII grossly intact Psychiatric exam: PRESENT: appropriate affect, normal mood Skin exam: PRESENT: intact, normal color Results Laboratory Results: 05/23/17 04:14 05/23/17 04:14 05/23/17 05/23/17 05/23/17 02:45 04:14 04:14 WBC 11.2 H RBC 4.11 L Hgb 13.5 Hct 39.5 MCV 96 MCH 33.0 MCHC 34.3 RDW 13.1 Plt Count 320 Sodium 132.2 L Potassium 3.7 Chloride 90 L Carbon Dioxide 30 Anion Gap 12 BUN 11 Creatinine 0.59 Est GFR ( Amer) > 60 Est GFR (Non-Af Amer) > 60 Glucose 179 H Calcium 9.2 Magnesium 2.1 Urine Color Urine Appearance Urine pH Ur Specific [place] Urine Protein Urine Glucose (UA) Urine Ketones Urine Blood Urine Nitrite Ur Leukocyte Esterase Urine WBC (Auto) Urine RBC (Auto) Stool Occult Blood NEGATIVE 05/23/17 07:00 WBC RBC Hgb Hct MCV MCH MCHC RDW Plt Count Sodium Potassium Chloride Carbon Dioxide Anion Gap BUN Creatinine Est GFR ( Amer) Est GFR (Non-Af Amer) Glucose Calcium Magnesium Urine Color YELLOW Urine Appearance CLEAR Urine pH 6.0 Ur Specific [place] 1.009 Urine Protein NEGATIVE Urine Glucose (UA) 50 H Urine Ketones TRACE H Urine Blood NEGATIVE Urine Nitrite NEGATIVE Ur Leukocyte Esterase NEGATIVE Urine WBC (Auto) 1 Urine RBC (Auto) 0 Stool Occult Blood 05/18/17 05/19/17 05/19/17 19:17 01:48 01:48 Creatine Kinase 37 L CK-MB (CK-2) < 0.22 Troponin I < 0.012 < 0.012 NT-Pro-B Natriuret Pep 05/19/17 05/19/17 05/19/17 04:48 08:23 14:51 Creatine Kinase 34 L 29 L CK-MB (CK-2) < 0.22 Troponin I < 0.012 NT-Pro-B Natriuret Pep 05/19/17 05/23/17 14:51 04:14 Creatine Kinase CK-MB (CK-2) < 0.22 Troponin I < 0.012 NT-Pro-B Natriuret Pep 25 Impressions: Chest X-Ray 05/18/17 14:31 IMPRESSION: POSSIBLE VIRAL ILLNESS OR ATYPICAL INFECTION. SUSPECT DEVELOPING INFILTRATE IN THE LEFT PERIHILAR REGION AND LEFT LUNG BASE. Chest/Abdomen CTA 05/18/17 15:18 IMPRESSION: Study positive for small segmental pulmonary emboli to the left lower lobe. Patchy left basilar airspace disease with trace left pleural effusion Assessment & Plan - Diagnosis (1) Chest pain Qualifiers: Chest pain type: chest pain on breathing Qualified Code(s): R07.1 - Chest pain on breathing; R07.81 - Pleurodynia Is this a current diagnosis for this admission?: Yes Plan: Musculoskeletal and secondary to cough. Resolving. Continue present management (2) Pneumonia Qualifiers: Pneumonia type: due to unspecified organism Laterality: left Lung location: lower lobe of lung Qualified Code(s): J18.1 - Lobar pneumonia, unspecified organism Is this a current diagnosis for this admission?: Yes Plan: Continue Levaquin p.o. (3) Pulmonary embolism Qualifiers: Pulmonary embolism type: other Chronicity: acute Acute cor pulmonale presence: without acute cor pulmonale Qualified Code(s): I26.99 - Other pulmonary embolism without acute cor pulmonale Is this a current diagnosis for this admission?: Yes Plan: Continue Eliquis . Case management to assist since does not have insurance. Echocardiogram result pending (4) Tobacco use disorder, continuous Is this a current diagnosis for this admission?: Yes Plan: Educated about quitting. Continue nicotine patch (5) Type 2 diabetes mellitus Qualifiers: Diabetes mellitus complication status: with hyperglycemia Is this a current diagnosis for this admission?: Yes Plan: Continue Lantus, pre-meal Humalog and continue Humalog sliding scale. Improving and anticipate to discharge home on oral medication (6) Acute respiratory failure with hypoxia Is this a current diagnosis for this admission?: Yes Plan: Continue oxygen supplementation. To place on CPAP since requiring higher oxygen concentration - Time Time Spent with patient: 15-24 minutes Medications reviewed and adjusted accordingly: Yes Anticipated discharge: Home Within: within 48 hours - Inpatient Certification Based on my medical assessment, after consideration of the patient's comorbidities, presenting symptoms, or acuity I expect that the services needed warrant INPATIENT care.: Yes I certify that my determination is in accordance with my understanding of Medicare's requirements for reasonable and necessary INPATIENT services [42 CFR 412.3e].: Yes Medical Necessity: Need Close Monitoring Due to Risk of Patient Decompensation - Needing oxygen and CPAP
[2017-05-23] MEDS: ATORVASTATIN CALCIUM 80 MG TABLET PO SCH (21:49)
[2017-05-24] MEDS: BENZONATATE 100 MG CAPSULE PO SCH ×3 (06:00→21:41)
[2017-05-24 07:42] LABS: ANION GAP 13 (5-19); BLOOD UREA NITROGEN 11 mg/dL (7-20); CARBON DIOXIDE 31 mmol/L (22-30); CHLORIDE 90 mmol/L (98-107); GLUCOSE 142 mg/dL (75-110); POTASSIUM 3.6 mmol/L (3.6-5.0); SODIUM 133.8 mmol/L (137-145)
[2017-05-24] MEDS: INSULIN LISPRO 100 UNIT/ML 3 ML VIAL SUBCUT SCH ×3 (08:13→17:17)
[2017-05-24] MEDS: BUDESONIDE NEB 0.5 MG/2 ML AMPUL NEB SCH ×2 (08:41→21:27)
[2017-05-24] MEDS: IPRATROPIUM/ALBUTEROL 0.5-2.5 MG/3 ML AMPUL NEB SCH ×3 (08:41→21:27)
[2017-05-24] MEDS: APIXABAN 5 MG TABLET PO SCH ×2 (09:24→21:42)
[2017-05-24] MEDS: INSULIN GLARGINE,HUM.REC.ANLOG 300 UNIT/3 ML INSULN.PEN SUBCUT SCH ×2 (09:25→21:42)
[2017-05-24] MEDS: LACTULOSE SYRUP 20 GM/30 ML UDCUP PO SCH ×2 (09:27→21:41)
[2017-05-24] MEDS: NICOTINE 21 MG/24 HR PATCH.TD24 TD SCH (09:27)
[2017-05-24] MEDS: LEVOFLOXACIN 750 MG TABLET PO SCH (09:27)
--- NOTE | 2017-05-24 10:42 | XCELERA REPORT ---
[address] [address] Transthoracic Echocardiogram Report Name: IGNACIO LOPEZ Age: 42 yrs Gender: Male : 1975 Patient Status: Inpatient Patient Location: [address] [place] [address] Study Date: 05/23/2017 10:11 AM Height: 67 in Weight: 212 lb BSA: 2.1 m2 Procedure: A complete two-dimensional transthoracic echocardiogram was performed (2D, M-mode, spectral and color flow Doppler). The study was technically difficult with many images being suboptimal in quality. Reason For Study: hypoxemia/PE Ordering Physician: GIOVANA ALBARADO Performed By: Liliana Aj Interpretation Summary The study was technically difficult with many images being suboptimal in quality. The left ventricular ejection fraction is normal. There is borderline concentric left ventricular hypertrophy. The left ventricle is grossly normal size. Doppler measurements suggest pseudonormalized left ventricular relaxation, which is associated with grade II/IV or mild to moderate diastolic dysfunction Wall motion cannot be accurately commented on, but no definite regional wall motion abnormalities noted. The right ventricle is not well visualized secondary to technical limitations Right ventricular function cannot be assessed due to poor image quality. The right atrium is normal in size The left atrial size is normal. There is a trace amount of mitral regurgitation There is no mitral valve stenosis. There is no aortic valve stenosis No aortic regurgitation is present. There is a trace or physiologic amount of tricuspid regurgitation Tricuspid regurgitation jet envelope not well defined to measure RV systolic pressure accurately. The aortic root is not well visualized. The inferior vena cava was not visualized Minimal pericardial effusion. MMode/2D Measurements & Calculations RVDd: 3.1 cm LVIDd: 3.6 cm FS: 26.4 % Ao root diam: 2.7 cm IVSd: 0.98 cm LVIDs: 2.7 cm EDV(Teich): 55.3 ml LVPWd: 0.98 cm ESV(Teich): 26.2 ml Ao root area: 5.7 cm2 EF(Teich): 52.6 % Doppler Measurements & Calculations MV E max sidney: MV dec slope: Ao V2 max: LV V1 max P.7 cm/sec 146.3 cm/sec 5.2 mmHg MV A max sidney: 381.1 cm/sec2 Ao max PG: LV V1 max: 84.6 cm/sec MV dec time: 8.6 mmHg 114.4 cm/sec MV E/A: 0.86 0.19 sec PA V2 max: 115.4 cm/sec PA max P.3 mmHg Left Ventricle The left ventricle is grossly normal size. There is borderline concentric left ventricular hypertrophy. The left ventricular ejection fraction is normal. Doppler measurements suggest pseudonormalized left ventricular relaxation, which is associated with grade II/IV or mild to moderate diastolic dysfunction. Wall motion cannot be accurately commented on, but no definite regional wall motion abnormalities noted. Right Ventricle The right ventricle is not well visualized secondary to technical limitations. Right ventricular function cannot be assessed due to poor image quality. Atria The right atrium is normal in size. The left atrial size is normal. Interarterial septum not well visualized and not well dopplered. Cannot comment on ASD/PFO presence. Mitral Valve The mitral valve leaflets are sclerotic, but show no functional abnormalities. There is no mitral valve stenosis. There is a trace amount of mitral regurgitation. Aortic Valve The aortic valve is not well visualized secondary to technical limitations. There is no aortic valve stenosis. No aortic regurgitation is present. Tricuspid Valve The tricuspid valve is not well visualized secondary to technical limitations. There is no tricuspid stenosis. There is a trace or physiologic amount of tricuspid regurgitation. Tricuspid regurgitation jet envelope not well defined to measure RV systolic pressure accurately. Pulmonic Valve The pulmonic valve is not well visualized. Great Vessels The aortic root is not well visualized. The inferior vena cava was not visualized. Effusions Minimal pericardial effusion. : GIOVANA ALBARADO > Brien Wilson
--- NOTE | 2017-05-24 16:39 | PDOC PROGRESS REPORT ---
Subjective Progress Note for:: 05/24/17 Subjective:: Patient complains of pain mostly localized to the left side of the chest. Still needing oxygen since goes down. Review of systems All organ systems evaluated and negative except as in subjective All significant laboratories and diagnostics have been reviewed Reason For Visit: TACHYCARDIA,PE,PNEUMONIA Physical Exam Vital Signs: Temp Pulse Resp BP Pulse Ox 98.0 F 101 H 28 H 127/77 H 94 05/23/17 23:42 05/23/17 23:42 05/24/17 04:00 05/23/17 23:42 05/24/17 04:00 Intake & Output 05/23/17 05/24/17 05/25/17 06:59 06:59 06:59 Intake Total 502 1167 Output Total 350 400 Balance 152 767 General appearance: PRESENT: cooperative, obese Head exam: PRESENT: atraumatic, normocephalic Eye exam: PRESENT: conjunctiva pink, EOMI, PERRLA Ear exam: PRESENT: normal external ear exam Mouth exam: PRESENT: moist Neck exam: PRESENT: full ROM, JVD. ABSENT: lymphadenopathy, tenderness Respiratory exam: PRESENT: crackles, decreased breath sounds Cardiovascular exam: PRESENT: RRR. ABSENT: diastolic murmur, systolic murmur Vascular exam: PRESENT: normal capillary refill GI/Abdominal exam: PRESENT: normal bowel sounds, soft. ABSENT: tenderness Extremities exam: PRESENT: full ROM. ABSENT: joint swelling, pedal edema Musculoskeletal exam: PRESENT: ambulatory Neurological exam: PRESENT: alert, awake, oriented to person, oriented to place , oriented to time, CN II-XII grossly intact Psychiatric exam: PRESENT: appropriate affect, normal mood Skin exam: PRESENT: intact, normal color Results Laboratory Results: 05/23/17 04:14 05/24/17 06:14 05/23/17 05/24/17 07:00 06:14 Sodium 133.8 L Potassium 3.6 Chloride 90 L Carbon Dioxide 31 H Anion Gap 13 BUN 11 Creatinine 0.58 Est GFR ( Amer) > 60 Est GFR (Non-Af Amer) > 60 Glucose 142 H Calcium 9.0 Magnesium 2.0 Urine Color YELLOW Urine Appearance CLEAR Urine pH 6.0 Ur Specific [place] 1.009 Urine Protein NEGATIVE Urine Glucose (UA) 50 H Urine Ketones TRACE H Urine Blood NEGATIVE Urine Nitrite NEGATIVE Ur Leukocyte Esterase NEGATIVE Urine WBC (Auto) 1 Urine RBC (Auto) 0 02/02/18 19:17 Blood Blood Culture - Final NO GROWTH IN 5 DAYS 05/18/17 19:25 Blood Blood Culture - Final NO GROWTH IN 5 DAYS 05/18/17 05/19/17 05/19/17 19:17 01:48 01:48 Creatine Kinase 37 L CK-MB (CK-2) < 0.22 Troponin I < 0.012 < 0.012 NT-Pro-B Natriuret Pep 05/19/17 05/19/17 05/19/17 04:48 08:23 14:51 Creatine Kinase 34 L 29 L CK-MB (CK-2) < 0.22 Troponin I < 0.012 NT-Pro-B Natriuret Pep 05/19/17 05/23/17 14:51 04:14 Creatine Kinase CK-MB (CK-2) < 0.22 Troponin I < 0.012 NT-Pro-B Natriuret Pep 25 Impressions: Chest X-Ray 05/18/17 14:31 IMPRESSION: POSSIBLE VIRAL ILLNESS OR ATYPICAL INFECTION. SUSPECT DEVELOPING INFILTRATE IN THE LEFT PERIHILAR REGION AND LEFT LUNG BASE. Chest/Abdomen CTA 05/18/17 15:18 IMPRESSION: Study positive for small segmental pulmonary emboli to the left lower lobe. Patchy left basilar airspace disease with trace left pleural effusion Assessment & Plan - Diagnosis (1) Chest pain Qualifiers: Chest pain type: chest pain on breathing Qualified Code(s): R07.1 - Chest pain on breathing; R07.81 - Pleurodynia Is this a current diagnosis for this admission?: Yes Plan: Musculoskeletal and secondary to cough. Resolving. Will try prednisone and Indocin (2) Pneumonia Qualifiers: Pneumonia type: due to unspecified organism Laterality: left Lung location: lower lobe of lung Qualified Code(s): J18.1 - Lobar pneumonia, unspecified organism Is this a current diagnosis for this admission?: Yes Plan: Continue Levaquin p.o. (3) Pulmonary embolism Qualifiers: Pulmonary embolism type: other Chronicity: acute Acute cor pulmonale presence: without acute cor pulmonale Qualified Code(s): I26.99 - Other pulmonary embolism without acute cor pulmonale Is this a current diagnosis for this admission?: Yes Plan: Continue Eliquis 10 mg 1 p.o. twice daily then 5 mg 1 p.o. twice daily (4) Tobacco use disorder, continuous Is this a current diagnosis for this admission?: Yes Plan: Educated about quitting. Continue nicotine patch (5) Type 2 diabetes mellitus Qualifiers: Diabetes mellitus complication status: with hyperglycemia Is this a current diagnosis for this admission?: Yes Plan: Continue Lantus, pre-meal Humalog and continue Humalog sliding scale. Improving and anticipate to discharge home on oral medication (6) Acute respiratory failure with hypoxia Is this a current diagnosis for this admission?: Yes Plan: Continue oxygen supplementation. Continue use of incentive spirometer and efforts to wean down oxygen (7) Hyponatremia Is this a current diagnosis for this admission?: Yes Plan: Place on normal saline and follow up response - Time Time Spent with patient: 15-24 minutes Medications reviewed and adjusted accordingly: Yes Anticipated discharge: Home Within: within 48 hours - Inpatient Certification Based on my medical assessment, after consideration of the patient's comorbidities, presenting symptoms, or acuity I expect that the services needed warrant INPATIENT care.: Yes I certify that my determination is in accordance with my understanding of Medicare's requirements for reasonable and necessary INPATIENT services [42 CFR 412.3e].: Yes Medical Necessity: Need Close Monitoring Due to Risk of Patient Decompensation - oxygen supplementation
[2017-05-24] MEDS ORDERED: PREDNISONE 20 MG TABLET PO ONE (17:00)
[2017-05-24] MEDS: INDOMETHACIN 25 MG CAPSULE PO SCH (18:32)
[2017-05-24] MEDS: NORMAL SALINE 1000 ML 1,000 ML IV PRN (18:33)
[2017-05-24] MEDS: ATORVASTATIN CALCIUM 80 MG TABLET PO SCH (21:41)
[2017-05-24] MEDS: INSULIN LISPRO 100 UNIT/ML 3 ML VIAL SUBCUT PRN (21:52)
[2017-05-25] MEDS: BENZONATATE 100 MG CAPSULE PO SCH ×3 (05:41→22:44)
[2017-05-25] MEDS: NORMAL SALINE 1000 ML 1,000 ML IV PRN ×2 (05:41→18:39)
[2017-05-25 05:46] LABS: HEMATOCRIT 38.5 % (37.9-51.0); HEMOGLOBIN 13.3 g/dL (13.5-17.0); MEAN CORPUSCULAR HEMOGLOBIN 33.1 pg (27.0-33.4); MEAN CORPUSCULAR HGB CONC 34.6 g/dL (32.0-36.0); MEAN CORPUSCULAR VOLUME 96 fl (80-97); PLATELET COUNT 278 10^3/uL (150-450); RED BLOOD COUNT 4.03 10^6/uL (4.35-5.55); RED CELL DISTRIBUTION WIDTH 13.3 % (11.5-14.0)
[2017-05-25 06:07] LABS: ANION GAP 11 (5-19); BLOOD UREA NITROGEN 12 mg/dL (7-20); CALCIUM 9.1 mg/dL (8.4-10.2); CARBON DIOXIDE 29 mmol/L (22-30); CHLORIDE 95 mmol/L (98-107); GLUCOSE 257 mg/dL (75-110); SODIUM 135.4 mmol/L (137-145)
[2017-05-25] MEDS: IPRATROPIUM/ALBUTEROL 0.5-2.5 MG/3 ML AMPUL NEB SCH ×3 (08:32→22:02)
[2017-05-25] MEDS: BUDESONIDE NEB 0.5 MG/2 ML AMPUL NEB SCH ×2 (08:32→22:01)
[2017-05-25] MEDS: INSULIN GLARGINE,HUM.REC.ANLOG 300 UNIT/3 ML INSULN.PEN SUBCUT SCH ×2 (10:02→23:48)
[2017-05-25] MEDS: INSULIN LISPRO 100 UNIT/ML 3 ML VIAL SUBCUT SCH ×3 (10:02→17:33)
[2017-05-25] MEDS: INSULIN LISPRO 100 UNIT/ML 3 ML VIAL SUBCUT PRN ×4 (10:03→22:47)
[2017-05-25] MEDS: LEVOFLOXACIN 750 MG TABLET PO SCH (10:04)
[2017-05-25] MEDS: INDOMETHACIN 25 MG CAPSULE PO SCH ×3 (10:04→17:36)
[2017-05-25] MEDS: APIXABAN 5 MG TABLET PO SCH ×2 (10:04→22:44)
[2017-05-25] MEDS: LACTULOSE SYRUP 20 GM/30 ML UDCUP PO SCH ×2 (10:04→22:45)
[2017-05-25] MEDS: PREDNISONE 20 MG TABLET PO SCH (10:04)
[2017-05-25] MEDS: NICOTINE 21 MG/24 HR PATCH.TD24 TD SCH (10:05)
[2017-05-25 11:40] LABS: APPEARANCE,URINE CLEAR; BILIRUBIN,URINE NEGATIVE (NEGATIVE); COLOR,URINE YELLOW; GLUCOSE, URINE >=500 mg/dL (NEGATIVE); KETONES,URINE TRACE mg/dL (NEGATIVE); LEUKOCYTE ESTERASE,URINE NEGATIVE (NEGATIVE); NITRITE,URINE NEGATIVE (NEGATIVE); PROTEIN,URINE NEGATIVE (NEGATIVE); URINE SPECIFIC GRAVITY 1.035
--- NOTE | 2017-05-25 16:20 | PDOC PROGRESS REPORT ---
Subjective Progress Note for:: 05/25/17 Subjective:: Patient refers that chest pain is gone. He also states that the breathing is better. Talked to respiratory therapist to assist in weaning patient off oxygen. CPAP had been order. At at point in time have been discontinued Review of systems All organ systems evaluated and negative except as in subjective All significant laboratories and diagnostics have been reviewed Reason For Visit: TACHYCARDIA,PE,PNEUMONIA Physical Exam Vital Signs: Temp Pulse Resp BP Pulse Ox 97.8 F 101 H 20 113/89 H 91 L 05/25/17 07:27 05/25/17 08:32 05/25/17 08:32 05/25/17 07:27 05/25/17 08:32 Intake & Output 05/24/17 05/25/17 05/26/17 06:59 06:59 06:59 Intake Total 1167 3474 Output Total 400 925 Balance 767 2549 General appearance: PRESENT: no acute distress, cooperative, morbidly obese Head exam: PRESENT: atraumatic, normocephalic Eye exam: PRESENT: EOMI, PERRLA Ear exam: PRESENT: normal external ear exam Mouth exam: PRESENT: moist, neck supple Neck exam: PRESENT: full ROM. ABSENT: JVD, lymphadenopathy, tenderness Respiratory exam: PRESENT: clear to auscultation nevaeh Cardiovascular exam: PRESENT: RRR. ABSENT: diastolic murmur, systolic murmur Vascular exam: PRESENT: normal capillary refill GI/Abdominal exam: PRESENT: normal bowel sounds, soft. ABSENT: tenderness Extremities exam: PRESENT: full ROM. ABSENT: pedal edema Musculoskeletal exam: ABSENT: ambulatory Neurological exam: PRESENT: alert, awake, oriented to person, oriented to place , oriented to time, oriented to situation, CN II-XII grossly intact Psychiatric exam: PRESENT: appropriate affect, normal mood Skin exam: PRESENT: intact, normal color Results Laboratory Results: 05/25/17 04:52 05/25/17 04:52 05/25/17 05/25/17 05/25/17 04:52 04:52 11:15 WBC 11.0 H RBC 4.03 L Hgb 13.3 L Hct 38.5 MCV 96 MCH 33.1 MCHC 34.6 RDW 13.3 Plt Count 278 Sodium 135.4 L Potassium 4.0 Chloride 95 L Carbon Dioxide 29 Anion Gap 11 BUN 12 Creatinine 0.55 Est GFR ( Amer) > 60 Est GFR (Non-Af Amer) > 60 Glucose 257 H Calcium 9.1 Urine Color YELLOW Urine Appearance CLEAR Urine pH 6.0 Ur Specific [place] 1.035 Urine Protein NEGATIVE Urine Glucose (UA) >=500 H Urine Ketones TRACE H Urine Blood NEGATIVE Urine Nitrite NEGATIVE Ur Leukocyte Esterase NEGATIVE Urine WBC (Auto) 2 05/18/17 05/19/17 05/19/17 19:17 01:48 01:48 Creatine Kinase 37 L CK-MB (CK-2) < 0.22 Troponin I < 0.012 < 0.012 NT-Pro-B Natriuret Pep 05/19/17 05/19/17 05/19/17 04:48 08:23 14:51 Creatine Kinase 34 L 29 L CK-MB (CK-2) < 0.22 Troponin I < 0.012 NT-Pro-B Natriuret Pep 05/19/17 05/23/17 14:51 04:14 Creatine Kinase CK-MB (CK-2) < 0.22 Troponin I < 0.012 NT-Pro-B Natriuret Pep 25 Impressions: Chest X-Ray 05/18/17 14:31 IMPRESSION: POSSIBLE VIRAL ILLNESS OR ATYPICAL INFECTION. SUSPECT DEVELOPING INFILTRATE IN THE LEFT PERIHILAR REGION AND LEFT LUNG BASE. Chest/Abdomen CTA 05/18/17 15:18 IMPRESSION: Study positive for small segmental pulmonary emboli to the left lower lobe. Patchy left basilar airspace disease with trace left pleural effusion Assessment & Plan - Diagnosis (1) Chest pain Qualifiers: Chest pain type: chest pain on breathing Qualified Code(s): R07.1 - Chest pain on breathing; R07.81 - Pleurodynia Is this a current diagnosis for this admission?: Yes Plan: Musculoskeletal and secondary to cough. Resolving. Continue prednisone and Indocin (2) Pneumonia Qualifiers: Pneumonia type: due to unspecified organism Laterality: left Lung location: lower lobe of lung Qualified Code(s): J18.1 - Lobar pneumonia, unspecified organism Is this a current diagnosis for this admission?: Yes Plan: Continue Levaquin p.o. (3) Pulmonary embolism Qualifiers: Pulmonary embolism type: other Chronicity: acute Acute cor pulmonale presence: without acute cor pulmonale Qualified Code(s): I26.99 - Other pulmonary embolism without acute cor pulmonale Is this a current diagnosis for this admission?: Yes Plan: Continue Eliquis 10 mg 1 p.o. twice daily then 5 mg 1 p.o. twice daily (4) Tobacco use disorder, continuous Is this a current diagnosis for this admission?: Yes Plan: Educated about quitting. Continue nicotine patch (5) Type 2 diabetes mellitus Qualifiers: Diabetes mellitus complication status: with hyperglycemia Is this a current diagnosis for this admission?: Yes Plan: Continue Lantus, pre-meal Humalog and continue Humalog sliding scale. Improving and anticipate to discharge home on oral medication (6) Acute respiratory failure with hypoxia Is this a current diagnosis for this admission?: Yes Plan: Talk to respiratory therapist to assist in weaning down oxygen and to restart CPAP. Will order ABG (7) Hyponatremia Is this a current diagnosis for this admission?: Yes Plan: Improved. Trend - Time Time Spent with patient: 15-24 minutes Anticipated discharge: Home Within: within 48 hours - Inpatient Certification Based on my medical assessment, after consideration of the patient's comorbidities, presenting symptoms, or acuity I expect that the services needed warrant INPATIENT care.: Yes I certify that my determination is in accordance with my understanding of Medicare's requirements for reasonable and necessary INPATIENT services [42 CFR 412.3e].: Yes Medical Necessity: Need Close Monitoring Due to Risk of Patient Decompensation
[2017-05-25 17:30] LABS: ARTERIAL BLOOD FIO2 50; ARTERIAL BLOOD H2CO3 1.37 mmol/L (1.05-1.35); ARTERIAL BLOOD HCO3 30.9 mmol/L (20-26); ARTERIAL BLOOD O2 SATURATION 94.6 % (94-98); ARTERIAL BLOOD PCO2 45.6 mmHg (35-45); ARTERIAL BLOOD PH 7.45 (7.35-7.45); ARTERIAL BLOOD TOTAL CO2 32.3 mmol/L (23-27)
[2017-05-25] MEDS: ATORVASTATIN CALCIUM 80 MG TABLET PO SCH (22:45)
[2017-05-25] MEDS ORDERED: INSULIN GLARGINE,HUM.REC.ANLOG 1,000 UNIT/10 ML UNIT SUBCUT ONE ×2 (23:37→23:45)
[2017-05-26] MEDS: NORMAL SALINE 1000 ML 1,000 ML IV PRN (05:00)
[2017-05-26] MEDS: BENZONATATE 100 MG CAPSULE PO SCH (05:49)
[2017-05-26] MEDS: INSULIN LISPRO 100 UNIT/ML 3 ML VIAL SUBCUT SCH (08:13)
[2017-05-26] MEDS: INSULIN LISPRO 100 UNIT/ML 3 ML VIAL SUBCUT PRN (08:16)
[2017-05-26] MEDS: IPRATROPIUM/ALBUTEROL 0.5-2.5 MG/3 ML AMPUL NEB SCH (08:22)
[2017-05-26] MEDS: BUDESONIDE NEB 0.5 MG/2 ML AMPUL NEB SCH (08:22)
[2017-05-26] MEDS: PREDNISONE 20 MG TABLET PO SCH (09:38)
[2017-05-26] MEDS: APIXABAN 5 MG TABLET PO SCH (09:38)
[2017-05-26] MEDS: INDOMETHACIN 25 MG CAPSULE PO SCH (09:38)
[2017-05-26] MEDS: NICOTINE 21 MG/24 HR PATCH.TD24 TD SCH (09:39)
[2017-05-26] MEDS: INSULIN GLARGINE,HUM.REC.ANLOG 300 UNIT/3 ML INSULN.PEN SUBCUT SCH (09:43)
[2017-05-26] MEDS: LACTULOSE SYRUP 20 GM/30 ML UDCUP PO SCH (09:44)
[2017-05-26 11:16] VITALS: BP 129/58
--- NOTE | 2017-05-26 18:15 | PDOC DISCHARGE SUMMARY ---
General - Admit/Disc Date/PCP Admission Date/Primary Care Provider: 05/18/17 17:27 Discharge Date: 05/26/17 - Discharge Diagnosis (1) Acute respiratory failure with hypoxia Is this a current diagnosis for this admission?: Yes (2) Pneumonia Is this a current diagnosis for this admission?: Yes (3) Pulmonary embolism Is this a current diagnosis for this admission?: Yes (4) Chest pain Is this a current diagnosis for this admission?: Yes (5) Tobacco use disorder, continuous Is this a current diagnosis for this admission?: Yes (6) Type 2 diabetes mellitus Is this a current diagnosis for this admission?: Yes (7) Hyponatremia Is this a current diagnosis for this admission?: Yes - Additional Information Resuscitation Status: Full Code Discharge Diet: Diabetic Discharge Activity: Activity As Tolerated, Balance Activity w/Rest Prescriptions: Apixaban [Eliquis 5 mg Tablet] 5 mg PO Q12 #60 tablet Metformin HCl 500 mg PO BID #60 tablet Home Medications: Apixaban [Eliquis 5 mg Tablet] 5 mg PO Q12 #60 tablet 05/26/17 Metformin HCl 500 mg PO BID #60 tablet 05/26/17 History of Present Illness History of Present Illness: IGNACIO LOPEZ is a 42 year old male presented to ED complaining of left- sided chest pain with inspiration. He became weaker. He came ED via ambulance. He was diagnosed with a pulmonary embolus after elevated d-dimer led to CT angiogram of the chest. He was also diagnosed with pneumonia and was started on Levaquin. Patient was started on Lovenox. Patient was admitted under the hospitalist service. Hospital Course Hospital Course: Patient was admitted under the hospitalist service. For the purpose of treating pulmonary embolism initially he was placed on Lovenox. Patient was then transitioned to Eliquis. Patient does not have insurance however a prescription was given for these medication because he relates that he can get the money to buy the medication. He was made aware that pharmacies also may have coupons for these medication. He was instructed that this medication was to be taken for a total of 3 months and refills were provided for this patient. Patient was treated for pneumonic process while in-house. On admission blood sugars were elevated and hemoglobin A1c was 5.4. Patient did not carry a history of diabetes. While in-house he was placed on insulin subcu however on discharge a prescription was given for metformin. He was also educated about lifestyle modifications and importance to follow-up with local physician. Of concern was that patient also presented with hypoxia which required oxygen supplementation. Patient also was treated with CPAP. At the time of discharge patient was saturating around 91-94% on ambulation which we felt was satisfactory. As far as pain on the left side of his chest was deemed to be mostly pleuritic in nature and responded to prednisone and Indocin. On discharge we opted not to continue these medications. Patient has been strongly encouraged to quit smoking and was educated about the detrimental effects of nicotine. Major issue of prolonged hospitalization stay related to hypoxia which was treated as aforementioned. Since patient had improved and was stable prompted to discharge Physical Exam Vital Signs: Temp Pulse Resp BP Pulse Ox 98 F 90 18 129/58 H 92 05/26/17 11:10 05/26/17 11:10 05/26/17 11:10 05/26/17 11:10 05/26/17 11:10 Intake & Output 05/25/17 05/26/17 05/27/17 06:59 06:59 06:59 Intake Total 3474 4130 Output Total 925 740 Balance 2549 3390 General appearance: PRESENT: cooperative, morbidly obese Head exam: PRESENT: atraumatic, normocephalic Eye exam: PRESENT: conjunctiva pink, EOMI, PERRLA Ear exam: PRESENT: normal external ear exam, TM's normal bilaterally Mouth exam: PRESENT: moist, neck supple Neck exam: PRESENT: full ROM. ABSENT: JVD, lymphadenopathy, tenderness Respiratory exam: PRESENT: clear to auscultation nevaeh Cardiovascular exam: PRESENT: RRR. ABSENT: diastolic murmur, systolic murmur Vascular exam: PRESENT: normal capillary refill GI/Abdominal exam: PRESENT: normal bowel sounds, soft. ABSENT: tenderness Extremities exam: PRESENT: full ROM, joint swelling. ABSENT: pedal edema Musculoskeletal exam: PRESENT: ambulatory Neurological exam: PRESENT: alert, awake, oriented to person, oriented to place , oriented to time, oriented to situation, CN II-XII grossly intact Psychiatric exam: PRESENT: appropriate affect, normal mood Skin exam: PRESENT: intact, normal color Results Laboratory Results: 05/25/17 04:52 05/25/17 04:52 05/18/17 05/19/17 05/19/17 19:17 01:48 01:48 Creatine Kinase 37 L CK-MB (CK-2) < 0.22 Troponin I < 0.012 < 0.012 NT-Pro-B Natriuret Pep 05/19/17 05/19/17 05/19/17 04:48 08:23 14:51 Creatine Kinase 34 L 29 L CK-MB (CK-2) < 0.22 Troponin I < 0.012 NT-Pro-B Natriuret Pep 05/19/17 05/23/17 14:51 04:14 Creatine Kinase CK-MB (CK-2) < 0.22 Troponin I < 0.012 NT-Pro-B Natriuret Pep 25 Impressions: Chest X-Ray 05/18/17 14:31 IMPRESSION: POSSIBLE VIRAL ILLNESS OR ATYPICAL INFECTION. SUSPECT DEVELOPING INFILTRATE IN THE LEFT PERIHILAR REGION AND LEFT LUNG BASE. Chest/Abdomen CTA 05/18/17 15:18 IMPRESSION: Study positive for small segmental pulmonary emboli to the left lower lobe. Patchy left basilar airspace disease with trace left pleural effusion Plan Discharge Plan: Discharge home Time Spent: Less than 30 Minutes
== END 2017-05-26 12:33 | disposition home or self-care (01) | DRG 175 ==
LOC: ER 14:16 → EH 17:27 → OBSVTOIN 17:27 → 3N 21:45 → 4S 05-22 04:31
PROVIDERS: ADMIT Emergency Medicine; ATTEND Emergency Medicine
PROC: 3E0F73Z Introduction of Anti-inflammatory into Respiratory Tract, Via Natural or Artificial Opening (ICD-10-PCS; principal; 2017-05-18)
PROC: 5A09457 Assistance with Respiratory Ventilation, 24-96 Consecutive Hours, Continuous Positive Airway Pressure (ICD-10-PCS; 2017-05-23)
DX: I26.99 Other pulmonary embolism without acute cor pulmonale (principal); J96.01 Acute respiratory failure with hypoxia; E87.1 Hypo-osmolality and hyponatremia; E66.2 Morbid (severe) obesity with alveolar hypoventilation; E11.9 Type 2 diabetes mellitus without complications; E78.5 Hyperlipidemia, unspecified; I10 Essential (primary) hypertension; F17.200 Nicotine dependence, unspecified, uncomplicated; R00.0 Tachycardia, unspecified; G47.30 Sleep apnea, unspecified; D11.9 Benign neoplasm of major salivary gland, unspecified; J45.909 Unspecified asthma, uncomplicated; Z79.02 Long term (current) use of antithrombotics/antiplatelets; Z59.7 Insufficient social insurance and welfare support; I25.2 Old myocardial infarction; Z82.49 Family history of ischemic heart disease and other diseases of the circulatory system; Z88.0 Allergy status to penicillin; Z88.6 Allergy status to analgesic agent; Z68.33 Body mass index [BMI] 33.0-33.9, adult; Z87.81 Personal history of (healed) traumatic fracture; Z79.84 Long term (current) use of oral hypoglycemic drugs
CPT/HCPCS: 36415; 36600; 71046; 71275; 80048; 80053; 80061; 81001; 82272; 82550; 82553; 82803; 82962; 83036; 83690; 83735; 83880; 84484; 85025; 85027; 85379; 85610; 85730; 87040; 93005; 93010; 93306; 94640; 94660; 94799; 96361; 96365; 96372; 96375; 99285; J1650; J1815; J1885; J1940; J1956; J2270; J2405; J3490; J7030; J7512; J7620

== ENCOUNTER 2017-06-04 08:38 | Emergency (ER) | payer OTHER ==
[2017-06-04] MEDS ORDERED: KETOROLAC TROMETHAMINE INJ/PF 30 MG/1 ML SDV IV ONE (09:40)
[2017-06-04] MEDS ORDERED: NORMAL SALINE 1000 ML 1,000 ML IV ONE (09:40)
[2017-06-04 09:41] LABS: ABSOLUTE BASOPHILS # (AUTO) 0.1 10^3/uL (0.0-0.2); ABSOLUTE EOSINOPHILS # (AUTO) 0.1 10^3/uL (0.0-0.6); ABSOLUTE LYMPHOCYTES (AUTO) 2.1 10^3/uL (0.5-4.7); ABSOLUTE MONOCYTES (AUTO) 1.8 10^3/uL (0.1-1.4); BASOPHILS % (AUTO) 0.4 % (0-2); EOSINOPHILS % (AUTO) 0.5 % (0-6); HEMATOCRIT 37.8 % (37.9-51.0); LYMPHOCYTES % (AUTO) 13.4 % (13-45); MEAN CORPUSCULAR HEMOGLOBIN 32.3 pg (27.0-33.4); MEAN CORPUSCULAR HGB CONC 34.4 g/dL (32.0-36.0); MEAN CORPUSCULAR VOLUME 94 fl (80-97); MONOCYTES % (AUTO) 11.1 % (3-13); PLATELET COUNT 437 10^3/uL (150-450); RED BLOOD COUNT 4.02 10^6/uL (4.35-5.55); RED CELL DISTRIBUTION WIDTH 13.1 % (11.5-14.0); SEGMENTED NEUTROPHILS % (AUTO) 74.6 % (42-78); TOTAL CELLS COUNTED % (AUTO) 100 %
[2017-06-04 09:56] LABS: ALANINE AMINOTRANSFERASE 23 U/L (21-72); ALBUMIN 3.7 g/dL (3.5-5.0); ALKALINE PHOSPHATASE 104 U/L (38-126); ANION GAP 13 (5-19); ASPARTATE AMINO TRANSFERASE 16 U/L (17-59); BILIRUBIN,DIRECT 0.3 mg/dL (0.0-0.4); BILIRUBIN,TOTAL 0.6 mg/dL (0.2-1.3); BLOOD UREA NITROGEN 10 mg/dL (7-20); CALCIUM 9.3 mg/dL (8.4-10.2); CARBON DIOXIDE 27 mmol/L (22-30); CHLORIDE 95 mmol/L (98-107); CREATINE KINASE 26 U/L (55-170); GLUCOSE 235 mg/dL (75-110); LIPASE 68.4 U/L (23-300); POTASSIUM 4.4 mmol/L (3.6-5.0); SODIUM 134.7 mmol/L (137-145); TOTAL PROTEIN 7.8 g/dL (6.3-8.2)
[2017-06-04 10:07] LABS: CREATINE KINASE MB 0.23 ng/mL (<4.55)
[2017-06-04 10:10] LABS: TROPONIN I < 0.012 ng/mL
[2017-06-04 11:07] LABS: INTERNATIONAL RATION (INR) 1.11; PROTHROMBIN TIME 15.1 SEC (11.4-15.4)
--- NOTE | 2017-06-04 11:47 | RADIOLOGY REPORT (SQ) ---
EXAM DESCRIPTION: CTA CHEST COMPLETED DATE/TIME: 06/04/2017 11:33 am REASON FOR STUDY: recent dx PE worsening of symptoms COMPARISON: 05/23/2015, 05/18/[address] angio exams TECHNIQUE: CT scan of the chest performed using helical scanning technique with dynamic intravenous contrast injection. Images reviewed with lung, soft tissue and bone windows. Reconstructed coronal and sagittal MPR images reviewed. Additional 3 dimensional post-processing performed to develop Maximal Intensity Projection images (TX P). All images stored on PACS. All CT scanners at this facility use dose modulation, iterative reconstruction, and/or weight based d osing when appropriate to reduce radiation dose to as low as reasonably achievable (ALARA). [facility]: Dose Right [facility]: CareDose [facility]: Dose Right [facility]: Teradose 4D [facility]: [employer] CONTRAST TYPE AND DOSE: contrast/concentration: Isovue 370.00 mg/ml; Total Contrast Delivered: 82.0 ml; Total Saline Delivered: 77.4 ml Contrast bolus optimized for the pulmonary arteries. Not diagnostic for the aorta. RENAL FUNCTION: Creatinine 0.53 RADIATION DOSE: CT Rad equipment meets quality standard of care and radiation dose reduction techniq ues were employed. CTDIvol: 16.5 - 16.9 mGy. DLP: 662 mGy-cm. . LIMITATIONS: None. FINDINGS: LUNGS AND PLEURA: Right hemithorax is unremarkable. On the left side, there is a multiloculated small to moderate size left pleural effusion in the later al and posterior chest. Patchy consolidation with adjacent pleural thickening in the right lower lob e and lingula. AORTA AND GREAT VESSELS: No aneurysm. Contrast bolus not optimized for the aorta. HEART: No pericardial effusion. No significant coronary artery calcifications. PULMONARY ARTERIES: No emboli visualized in the main pulmonary arteries or the segmental branches. HILAR AND MEDIASTINAL STRUCTURES: Small hiatal hernia. Less than 1 cm short axis precarinal and AP w indow lymph nodes are present. HARDWARE: None in the chest. UPPER ABDOMEN: No significant findings. Limited exam. THYROID AND OTHER SOFT TISSUES: No masses. No adenopathy. BONES: No acute or significant finding. 3D MIPS: Confirm above findings. OTHER: No other significant finding. IMPRESSION: Multiloculated small to moderate size left pleural effusion in the lateral and posterior chest Left basilar airspace disease atelectasis versus pneumonia COMMENT: Report discussed with Dr Padron in the emergency room, 1130 hours 06/04/2017 Quality ID # [id number]: Final reports with documentation of one or more dose reduction techniques (e.g., Au tomated exposure control, adjustment of the mA and/or kV according to patient size, use of iterative reconstruction technique) TECHNICAL DOCUMENTATION: JOB ID: [id number] [employer]- All Rights Reserved
[2017-06-04] MEDS ORDERED: CEFEPIME 1 GM/D5W RTU 1 GM/50 ML RTUPB IV ONE (11:48)
[2017-06-04] MEDS ORDERED: VANCOMYCIN HCL INJ 1000 MG VIAL IV ONE (11:52)
[2017-06-04] MEDS ORDERED: LEVOFLOXACIN 500 MG/D5W RTU 500 MG/100 ML RTUPB IV ONE (11:52)
--- NOTE | 2017-06-04 13:00 | ER Document Report ---
ED General - General Chief Complaint: Breathing Difficulty Stated Complaint: SHORTNESS OF BREATH,SIDE PAIN Time Seen by Provider: 06/04/17 09:28 TRAVEL OUTSIDE OF THE [place] IN LAST 30 DAYS: No - HPI Patient complains to provider of: Difficulty breathing left-sided chest pain Notes: Patient coming in for evaluation difficulty breathing and left-sided chest pain. Patient recently admitted and found to have pneumonia PE. Patient was discharged home on Eliquis no antibiotics patient is also discharged on metformin for his diabetes. Patient is compliant with his medications. Patient states since being discharged continues to have pleuritic left-sided chest pain now is radiating up his deck patient states chills cough with some mild production. States shortness of breath with name laying. Patient resting comfortably upon my evaluation states that he still is smoking. Denies fevers nausea vomiting diarrhea - Related Data Allergies/Adverse Reactions: Penicillins Adverse Reaction (Severe, Verified 06/04/17 08:39) Unknown reaction oxycodone Adverse Reaction (Verified 06/04/17 08:39) Past Medical History - Social History Smoking Status: Current Every Day Smoker Frequency of alcohol use: None Drug Abuse: None Family History: Reviewed & Not Pertinent, CAD Patient has suicidal ideation: No Patient has homicidal ideation: No - Past Medical History Cardiac Medical History: Reports: Hx Heart Attack - x 2, Hx Hypercholesterolemia , Hx Hypertension Pulmonary Medical History: Reports: Hx Asthma, Hx Sleep Apnea Denies: Hx Pneumonia, Hx Tuberculosis Neurological Medical History: Denies: Hx Seizures Endocrine Medical History: Reports: Hx Diabetes Mellitus Type 2 Renal/ Medical History: Denies: Hx Peritoneal Dialysis Psychiatric Medical History: Denies: Hx Depression Traumatic Medical History: Reports: Hx Fractures - left leg, 2 ribs, skull Past Surgical History: Denies: Hx Pacemaker - Immunizations Hx Diphtheria, Pertussis, Tetanus Vaccination: No - unknown Review of Systems - Review of Systems Constitutional: No symptoms reported EENT: No symptoms reported Cardiovascular: Chest pain Respiratory: No symptoms reported Gastrointestinal: No symptoms reported Genitourinary: No symptoms reported Male Genitourinary: No symptoms reported Musculoskeletal: No symptoms reported Skin: No symptoms reported Hematologic/Lymphatic: No symptoms reported Neurological/Psychological: No symptoms reported -: Yes All other systems reviewed and negative Physical Exam - Vital signs Vitals: Temp Pulse Resp BP Pulse Ox 99.3 F 106 H 20 126/65 H 92 06/04/17 08:46 06/04/17 08:46 06/04/17 08:46 06/04/17 08:46 06/04/17 08:46 Interpretation: Normal - General General appearance: Appears well, Alert - HEENT Head: Normocephalic, Atraumatic Eyes: Normal Pupils: PERRL - Respiratory Respiratory status: No respiratory distress Chest status: Tender - Tenderness left side of the chest Breath sounds: Rhonchi Chest palpation: Normal - Cardiovascular Rhythm: Regular Heart sounds: Normal auscultation Murmur: No - Abdominal Inspection: Normal Distension: No distension Bowel sounds: Normal Tenderness: Nontender Organomegaly: No organomegaly - Back Back: Normal, Nontender - Extremities General upper extremity: Normal inspection, Nontender, Normal color, Normal ROM , Normal temperature General lower extremity: Normal inspection, Nontender, Normal color, Normal ROM , Normal temperature, Normal weight bearing. No: Dee's sign - Neurological Neuro grossly intact: Yes Cognition: Normal Orientation: AAOx4 Mayo Coma Scale Eye Opening: Spontaneous [place] Coma Scale Verbal: Oriented [place] Coma Scale Motor: Obeys Commands Mayo Coma Scale Total: 15 Speech: Normal Motor strength normal: LUE, RUE, LLE, RLE Sensory: Normal - Psychological Associated symptoms: Normal affect, Normal mood - Skin Skin Temperature: Warm Skin Moisture: Dry Skin Color: Normal Course - Re-evaluation Re-evalutation: 06/04/17 14:39 Patient with leukocytosis. Patient CTA showed a multiloculated moderate-sized left pleural effusion according to the radiologist. Was contacted by the radiologist recommend transferred for CT surgery to evaluate for possible VATS. I did speak with Dr. Dean Montenegro and Dr. Richie Montenegro agrees to set the patient for further evaluation. Also showing pneumonia. Because patient's recent hospitalization will start patient on cefepime and Levaquin and vancomycin. Otherwise patient has been stable here in her hallway not requiring telemetry. Vital signs of remain within normal limits. Patient resting comfortably asking multiple times for his food and drink. - Vital Signs Vital signs: Temp Pulse Resp BP Pulse Ox 98.7 F 111 H 16 107/69 94 06/04/17 13:37 06/04/17 13:37 06/04/17 13:37 06/04/17 13:37 06/04/17 13:37 - Laboratory Result Diagrams: 06/04/17 08:26 06/04/17 08:26 Laboratory results interpreted by me: 06/04/17 06/04/17 08:26 08:26 WBC 16.0 H RBC 4.02 L Hgb 13.0 L Hct 37.8 L Absolute Neutrophils 12.0 H Absolute Monocytes 1.8 H Sodium 134.7 L Chloride 95 L Glucose 235 H AST 16 L Creatine Kinase 26 L Discharge - Discharge Clinical Impression: Multiloculated pleural effusion, History of pulmonary embolism Chest pain Qualifiers: Chest pain type: unspecified Qualified Code(s): R07.9 - Chest pain, unspecified Pneumonia Qualifiers: Pneumonia type: due to unspecified organism Laterality: right Lung location: unspecified part of lung Qualified Code(s): J18.9 - Pneumonia, unspecified organism Type 2 diabetes mellitus Qualifiers: Diabetes mellitus complication status: without complication Diabetes mellitus assisted insulin use: unspecified intermediate frame tender insulin use status Qualified Code(s ): E11.9 - Type 2 diabetes mellitus without complications Disposition: [facility], [facility] Referrals: [facility] [Primary Care Provider] - Follow up as needed
--- NOTE | 2017-06-04 13:37 | EKG REPORT ---
SEVERITY:- OTHERWISE NORMAL ECG - SINUS TACHYCARDIA : Confirmed by: Cedric Bagley MD 04-Jun-2017 13:36:23
[2017-06-04 17:24] VITALS: BP 109/64
--- NOTE | 2017-06-04 17:28 | ER Document Report ---
Doctor's Note Notes: 06/04/17 17:28 Patient has been reevaluated stable at this time looks well transport is here
== END 2017-06-04 17:37 | disposition short-term general hospital (02) ==
LOC: ER 08:38
DX: J90 Pleural effusion, not elsewhere classified (principal); J18.9 Pneumonia, unspecified organism; F17.200 Nicotine dependence, unspecified, uncomplicated; E78.00 Pure hypercholesterolemia, unspecified; I10 Essential (primary) hypertension; E11.9 Type 2 diabetes mellitus without complications; Z88.0 Allergy status to penicillin; Z88.6 Allergy status to analgesic agent; I25.2 Old myocardial infarction; Z86.711 Personal history of pulmonary embolism
CPT/HCPCS: 93005; 99285; 96361; 96375; 96365; 96367; 96368; 36415; 87040; 82553; 82550; 83690; 83735; 85025; 85610; 87077; 80053; 84484; 87186; 71275; 93010; J1956; J1885; J7030; J3370; J0692

== ENCOUNTER 2017-08-03 17:11 | Emergency (ER) | payer OTHER ==
--- NOTE | 2017-08-03 17:33 | ER Document Report ---
ED Medical Screen (RME) - General Chief Complaint: Arm Pain Stated Complaint: RIGHT SHOULDER AND ARM PAIN Time Seen by Provider: 08/03/17 17:25 Notes: Patient is a 42 year old male that presents to the emergency department today with complaints of right arm and right sided neck pain. Patient gives a somewhat convoluted history stating he was transferred to [facility] about a month ago for a PE and he states he has had this arm pain since that time. Patient describes "gouges" in his arm "where his vein runs" at times -- subjective. Patient states he was sent home on no anticoagulation but "had some xarelto" at home so he has been periodically taking this. Patient denies chest pain. I have greeted and performed a rapid initial assessment of this patient. A comprehensive ED assessment and evaluation of the patient, analysis of test results, and completion of the medical decision making process will be conducted by additional ED providers. Review of systems: Constitutional: No symptoms reported EENT: No symptoms reported Cardiovascular: No symptoms reported Respiratory: No symptoms reported Gastrointestinal: No symptoms reported Genitourinary: No symptoms reported Musculoskeletal: Right arm pain, right sided neck pain Skin: No symptoms reported Hematologic/Lymphatic: No symptoms reported Neurological/Psychological: No symptoms reported Yes All other systems reviewed and negative Physical Exam: General: Alert, appears well. HEENT: Normocephalic. Atraumatic. PERRLA. Extraocular movements intact. Oropharynx clear. Neck: Supple. Respiratory: No respiratory distress. Abdominal: Normal Inspection. No distension. Extremities: Moves all four extremities. Neurological: Normal cognition. AAOx4. Normal speech. Psychological: Normal affect. Normal Mood. Skin: Warm. Dry. Normal color. TRAVEL OUTSIDE OF THE [place] IN LAST 30 DAYS: No - Related Data Allergies/Adverse Reactions: Penicillins Adverse Reaction (Severe, Verified 08/03/17 17:14) Unknown reaction oxycodone Adverse Reaction (Verified 08/03/17 17:14) Past Medical History - Social History Frequency of alcohol use: None Drug Abuse: None - Past Medical History Cardiac Medical History: Reports: Hx Heart Attack - x 2, Hx Hypercholesterolemia , Hx Hypertension Pulmonary Medical History: Reports: Hx Asthma, Hx Sleep Apnea Denies: Hx Pneumonia, Hx Tuberculosis Neurological Medical History: Denies: Hx Seizures Endocrine Medical History: Reports: Hx Diabetes Mellitus Type 2 Renal/ Medical History: Denies: Hx Peritoneal Dialysis Psychiatric Medical History: Denies: Hx Depression Traumatic Medical History: Reports: Hx Fractures - left leg, 2 ribs, skull Past Surgical History: Denies: Hx Pacemaker - Immunizations Hx Diphtheria, Pertussis, Tetanus Vaccination: No - unknown History of Influenza Vaccine for 01/2017 - 06/2017 Season: No Physical Exam - Vital signs Vitals: Temp Pulse Resp BP Pulse Ox 97.9 F 91 18 134/71 H 97 08/03/17 17:22 08/03/17 17:22 08/03/17 17:22 08/03/17 17:22 08/03/17 17:22 Course - Vital Signs Vital signs: Temp Pulse Resp BP Pulse Ox 97.9 F 91 18 134/71 H 97 08/03/17 17:22 08/03/17 17:22 08/03/17 17:22 08/03/17 17:22 08/03/17 17:22 - Laboratory Result Diagrams: 08/03/17 17:53 08/03/17 17:53 Laboratory results interpreted by me: 08/03/17 08/03/17 17:53 17:53 RDW 15.2 H Glucose 309 H
--- NOTE | 2017-08-03 17:53 | RADIOLOGY REPORT (SQ) ---
EXAM DESCRIPTION: CHEST SINGLE VIEW COMPLETED DATE/TIME: 08/03/2017 5:45 pm REASON FOR STUDY: R shoulder pain COMPARISON: 05/18/2017 EXAM PARAMETERS: NUMBER OF VIEWS: One view. TECHNIQUE: Single frontal radiographic view of the chest acquired. RADIATION DOSE: NA LIMITATIONS: None. FINDINGS: LUNGS AND PLEURA: There is blunting of left costophrenic angle suggesting a limited pleura l effusion. MEDIASTINUM AND HILAR STRUCTURES: No masses. Contour normal. HEART AND VASCULAR STRUCTURES: Heart normal in size. Normal vasculature. BONES: No acute findings. HARDWARE: None in the chest. OTHER: No other significant finding. IMPRESSION: Small left pleural effusion. TECHNICAL DOCUMENTATION: JOB ID: [id number] [employer]- All Rights Reserved Reading location - IP/workstation name: [email or web address]
[2017-08-03 18:08] LABS: ABSOLUTE EOSINOPHILS # (AUTO) 0.3 10^3/uL (0.0-0.6); ABSOLUTE LYMPHOCYTES (AUTO) 3.3 10^3/uL (0.5-4.7); ABSOLUTE MONOCYTES (AUTO) 0.7 10^3/uL (0.1-1.4); BASOPHILS % (AUTO) 0.5 % (0-2); EOSINOPHILS % (AUTO) 3.9 % (0-6); HEMATOCRIT 44.4 % (37.9-51.0); HEMOGLOBIN 15.2 g/dL (13.5-17.0); LYMPHOCYTES % (AUTO) 39.2 % (13-45); MEAN CORPUSCULAR HEMOGLOBIN 32.8 pg (27.0-33.4); MEAN CORPUSCULAR HGB CONC 34.3 g/dL (32.0-36.0); MEAN CORPUSCULAR VOLUME 96 fl (80-97); MONOCYTES % (AUTO) 8.9 % (3-13); PLATELET COUNT 239 10^3/uL (150-450); RED BLOOD COUNT 4.64 10^6/uL (4.35-5.55); RED CELL DISTRIBUTION WIDTH 15.2 % (11.5-14.0); SEGMENTED NEUTROPHILS % (AUTO) 47.5 % (42-78); TOTAL CELLS COUNTED % (AUTO) 100 %; WHITE BLOOD COUNT 8.4 10^3/uL (4.0-10.5)
[2017-08-03 18:19] LABS: ALANINE AMINOTRANSFERASE 28 U/L (21-72); ALBUMIN 3.9 g/dL (3.5-5.0); ALKALINE PHOSPHATASE 94 U/L (38-126); ANION GAP 15 (5-19); ASPARTATE AMINO TRANSFERASE 20 U/L (17-59); BILIRUBIN,DIRECT 0.3 mg/dL (0.0-0.4); BILIRUBIN,TOTAL 0.3 mg/dL (0.2-1.3); BLOOD UREA NITROGEN 16 mg/dL (7-20); CALCIUM 9.4 mg/dL (8.4-10.2); CARBON DIOXIDE 25 mmol/L (22-30); CHLORIDE 100 mmol/L (98-107); GLUCOSE 309 mg/dL (75-110); POTASSIUM 3.9 mmol/L (3.6-5.0); SODIUM 140.1 mmol/L (137-145); TOTAL PROTEIN 7.7 g/dL (6.3-8.2)
[2017-08-03] MEDS ORDERED: CEPHALEXIN 500 MG CAPSULE PO ONE (19:03)
--- NOTE | 2017-08-03 19:03 | ER Document Report ---
ED General - General Chief Complaint: Arm Pain Stated Complaint: RIGHT SHOULDER AND ARM PAIN Time Seen by Provider: 08/03/17 17:25 Notes: Patient is a 42-year-old male with medical history as recorded, questionable history of a prior PE who presents with 6 weeks of right upper cavity pain. Patient states that the pain starts in his forearm where he often feels like he can see his forearm vein "pop up" and that is associate with a dull, constant throbbing pain that radiates up his arm and sometimes into his right neck. He notes that nothing seems to trigger the symptoms and they do resolve spontaneously. He states that this has been ongoing ever since he was hospitalized at [facility] and had IV placed in the site. He has not seen a primary care doctor regarding his concerns. He is not on any form of anticoagulation as he states that when he was at [facility] they did question the validity of an acute pulmonary embolus diagnosis. He denies any ongoing pain or symptoms at the time of my assessment. No associated shortness of breath, chest pain or syncope. TRAVEL OUTSIDE OF THE [place] IN LAST 30 DAYS: No - Related Data Allergies/Adverse Reactions: Penicillins Adverse Reaction (Severe, Verified 08/03/17 17:14) Unknown reaction oxycodone Adverse Reaction (Verified 08/03/17 17:14) Past Medical History - General Information source: Patient - Social History Smoking Status: Current Every Day Smoker Frequency of alcohol use: None Drug Abuse: None Lives with: Spouse/Significant other Family History: Reviewed & Not Pertinent, CAD Patient has suicidal ideation: No Patient has homicidal ideation: No - Past Medical History Cardiac Medical History: Reports: Hx Heart Attack - x 2, Hx Hypercholesterolemia , Hx Hypertension Pulmonary Medical History: Reports: Hx Asthma, Hx Sleep Apnea Denies: Hx Pneumonia, Hx Tuberculosis Neurological Medical History: Denies: Hx Seizures Endocrine Medical History: Reports: Hx Diabetes Mellitus Type 2 Renal/ Medical History: Denies: Hx Peritoneal Dialysis Psychiatric Medical History: Denies: Hx Depression Traumatic Medical History: Reports: Hx Fractures - left leg, 2 ribs, skull Past Surgical History: Denies: Hx Pacemaker - Immunizations Hx Diphtheria, Pertussis, Tetanus Vaccination: No - unknown Review of Systems - Review of Systems Notes: Constitutional: Negative for fever. HENT: Negative for sore throat. Eyes: Negative for visual changes. Cardiovascular: Negative for chest pain. Respiratory: Negative for shortness of breath. Gastrointestinal: Negative for abdominal pain, vomiting or diarrhea. Genitourinary: Negative for dysuria. Musculoskeletal: Positive for right forearm pain Skin: Negative for rash. Neurological: Negative for headaches, weakness or numbness. 10 point ROS negative except as marked above and in HPI. Physical Exam - Vital signs Vitals: Temp Pulse Resp BP Pulse Ox 97.9 F 91 18 134/71 H 97 08/03/17 17:22 08/03/17 17:22 08/03/17 17:22 08/03/17 17:22 08/03/17 17:22 Interpretation: Normal Notes: PHYSICAL EXAMINATION: GENERAL: Well-appearing, well-nourished and in no acute distress. HEAD: Atraumatic, normocephalic. EYES: Pupils equal round and reactive to light, extraocular movements intact, sclera anicteric, conjunctiva are normal. ENT: nares patent, oropharynx clear without exudates. Moist mucous membranes. NECK: Normal range of motion, supple without lymphadenopathy LUNGS: Breath sounds clear to auscultation bilaterally and equal. No wheezes rales or rhonchi. HEART: Regular rate and rhythm without murmurs ABDOMEN: Soft, nontender, normoactive bowel sounds. No guarding, no rebound. No masses appreciated. EXTREMITIES: Normal range of motion, no pitting or edema. No cyanosis. NEUROLOGICAL: No focal neurological deficits. Moves all extremities spontaneously and on command. PSYCH: Normal mood, normal affect. SKIN: Warm, Dry, normal turgor, no rashes or lesions noted. Course - Re-evaluation Re-evalutation: 08/03/17 18:58 Patient presents with 2 months of intermittent right upper extremity pain located mostly along the right forearm intermittently radiating into his right neck. He is worried about the possibility of a DVT although has no history of the same. He was diagnosed with a possible subsegmental PE in May but was never placed on long-term anticoagulation as it appears that when he was at [facility] they contested this diagnosis. On examination patient has no edema, no limited range of motion, and no evidence of any kind of an acute DVT. The area where he has pain he states started after an IV was placed in the area and I suspect he may have a case of superficial thrombophlebitis as opposed to a DVT as there is no clinical evidence for the latter diagnosis. I do not see any indication for venous ultrasound at this time given the absence of any clinical history or exam findings to support this diagnosis. I have encouraged patient to place hot compresses to the affected area and will trial a short course of antibiotics. At this time will discharge with return precautions and follow-up recommendations. Verbal discharge instructions given a the bedside and opportunity for questions given. Medication warnings reviewed. Patient is in agreement with this plan and has verbalized understanding of return precautions and the need for primary care follow-up in the next 24-72 hours. - Vital Signs Vital signs: Temp Pulse Resp BP Pulse Ox 97.9 F 91 16 128/80 H 97 08/03/17 17:22 08/03/17 17:22 08/03/17 18:06 08/03/17 18:06 08/03/17 18:06 - Laboratory Result Diagrams: 08/03/17 17:53 08/03/17 17:53 Laboratory results interpreted by me: 08/03/17 08/03/17 17:53 17:53 RDW 15.2 H Glucose 309 H - Diagnostic Test Radiology reviewed: Image reviewed, Reports reviewed Radiology results interpreted by me: 08/03/17 19:01 Chest x-ray: No acute infiltrate or pneumothorax - EKG Interpretation by Me Additional EKG results interpreted by me: 08/03/17 19:02 Normal sinus rhythm. Rate 91. No ST elevations or depressions. QTC is 448. Discharge - Discharge Clinical Impression: Right upper limb pain Superficial thrombophlebitis of arm Qualifiers: Laterality: right Qualified Code(s): I80.8 - Phlebitis and thrombophlebitis of other sites Condition: Good Disposition: HOME, SELF-CARE Additional Instructions: Your symptoms may be due to a condition called superficial thrombophlebitis which is an inflammation and possible infection of a superficial vein of your forearm. Please take the antibiotic as prescribed. Return if you develop edema of the arm, worsening pain, spreading redness, difficulty breathing, or any other symptoms that are worrisome to you. Please follow-up with your primary care doctor within the next 24-48 hours. Prescriptions: Cephalexin Monohydrate [Keflex 500 mg Capsule] 500 mg PO Q6H 7 Days capsule
[2017-08-03 19:12] VITALS: BP 128/80
--- NOTE | 2017-08-04 09:25 | EKG REPORT ---
SEVERITY:- NORMAL ECG - SINUS RHYTHM : Confirmed by: Brien Wilson 04-Aug-2017 09:24:38
== END 2017-08-03 19:20 | disposition home or self-care (01) ==
LOC: ER 17:11
DX: I80.8 Phlebitis and thrombophlebitis of other sites (principal); M79.601 Pain in right arm; E11.9 Type 2 diabetes mellitus without complications; E78.00 Pure hypercholesterolemia, unspecified; I10 Essential (primary) hypertension; Z88.0 Allergy status to penicillin; Z88.6 Allergy status to analgesic agent; I25.2 Old myocardial infarction
CPT/HCPCS: 36415; 71045; 80053; 84484; 85025; 93005; 93010; 99284

== ENCOUNTER → 2017-08-30 | Outpatient (CLI) | payer OTHER ==
--- NOTE | 2017-08-30 12:16 | RADIOLOGY REPORT (SQ) ---
EXAM DESCRIPTION: CHEST 2 VIEWS COMPLETED DATE/TIME: 08/30/2017 11:28 am REASON FOR STUDY: DYSPNEA, UNSPECIFIED COMPARISON: AP chest 08/03/2017, 07/27/2016 Two-view chest 05/18/2017 CT chest 05/18/2017, 06/04/2017 EXAM PARAMETERS: NUMBER OF VIEWS: two views TECHNIQUE: Digital Frontal and Lateral radiographic views of the chest acquired. RADIATION DOSE: NA LIMITATIONS: none FINDINGS: LUNGS AND PLEURA: The left pleural effusions seen on CTA chest 06/04/2017 has resolved. Th ere is minimal blunting from pleural thickening in the left lateral costophrenic sulcus. No acute infiltrates. No pleural effusion. No pneumothorax. MEDIASTINUM AND HILAR STRUCTURES: No masses or contour abnormalities. HEART AND VASCULAR STRUCTURES: Heart normal size. No evidence for failure. BONES: No acute findings. HARDWARE: None in the chest. OTHER: No other significant finding. IMPRESSION: Minimal pleural thickening left lateral costophrenic sulcus. Left pleural effusion seen on 06/04/2017 CT chest has resolved. TECHNICAL DOCUMENTATION: JOB ID: [id number] [employer]- All Rights Reserved Reading location - IP/workstation name: [email or web address]
== END ==
LOC: RAD 11:14
DX: R06.00 Dyspnea, unspecified (principal)
CPT/HCPCS: 71046

== ENCOUNTER 2017-11-26 13:41 | Emergency (ER) | payer OTHER ==
[2017-11-26 13:47] VITALS: BP 141/72
--- NOTE | 2017-11-26 14:43 | ER Document Report ---
ED Medical Screen (RME) - General Chief Complaint: Shortness Of Breath Stated Complaint: SHORTNESS OF BREATH Time Seen by Provider: 11/26/17 14:37 Mode of Arrival: Ambulatory Information source: Patient Notes: Patient is a 42-year-old male who presents with chief complaint of shortness of breath and elevated glucose levels. Patient reports he had a prior blood clot in his long in May, patient reports that his shortness of breath has been ongoing since May with no change. Patient reports main reason for presentation to the emergency department today is that his blood sugars have been high. Patient reports he got a new meter approximately 3 weeks ago and all of his blood sugars have been in the 3-400 ranges, this morning it was 500. Patient reports that he just generally does not feel well and that the hot sun is making this worse. Patient denies any chest pain. Exam: Lung sounds clear to auscultation bilaterally, heart sounds S1-S2 present with no ectopy noted. I have greeted and performed a rapid initial assessment of this patient. A comprehensive ED assessment and evaluation of the patient, analysis of test results and completion of the medical decision making process will be conducted by additional ED providers. Dictation of this chart was performed using voice recognition software; therefore, there may be some unintended grammatical errors. TRAVEL OUTSIDE OF THE [place] IN LAST 30 DAYS: No - Related Data Allergies/Adverse Reactions: Penicillins Adverse Reaction (Severe, Verified 11/26/17 13:44) Unknown reaction oxycodone Adverse Reaction (Verified 11/26/17 13:44) Past Medical History - Past Medical History Cardiac Medical History: Reports: Hx Heart Attack - x 2, Hx Hypercholesterolemia , Hx Hypertension Pulmonary Medical History: Reports: Hx Asthma, Hx Sleep Apnea Denies: Hx Pneumonia, Hx Tuberculosis Neurological Medical History: Denies: Hx Seizures Endocrine Medical History: Reports: Hx Diabetes Mellitus Type 2 Renal/ Medical History: Denies: Hx Peritoneal Dialysis Psychiatric Medical History: Denies: Hx Depression Traumatic Medical History: Reports: Hx Fractures - left leg, 2 ribs, skull Past Surgical History: Denies: Hx Pacemaker - Immunizations Hx Diphtheria, Pertussis, Tetanus Vaccination: No - unknown History of Influenza Vaccine for 01/2017 - 06/2017 Season: No Physical Exam - Vital signs Vitals: Temp Pulse Resp BP Pulse Ox 98.1 F 102 H 18 141/72 H 95 11/26/17 13:46 11/26/17 13:46 11/26/17 13:46 11/26/17 13:46 11/26/17 13:46 Course - Vital Signs Vital signs: Temp Pulse Resp BP Pulse Ox 98.1 F 102 H 18 141/72 H 95 11/26/17 13:46 11/26/17 13:46 11/26/17 13:46 11/26/17 13:46 11/26/17 13:46
[2017-11-26 16:14] LABS: ABSOLUTE BASOPHILS # (AUTO) 0.1 10^3/uL (0.0-0.2); ABSOLUTE EOSINOPHILS # (AUTO) 0.2 10^3/uL (0.0-0.6); ABSOLUTE MONOCYTES (AUTO) 0.6 10^3/uL (0.1-1.4); ABSOLUTE NEUT (AUTO) 4.8 10^3/uL (1.7-8.2); BASOPHILS % (AUTO) 0.8 % (0-2); EOSINOPHILS % (AUTO) 2.3 % (0-6); HEMATOCRIT 44.6 % (37.9-51.0); HEMOGLOBIN 15.5 g/dL (13.5-17.0); LYMPHOCYTES % (AUTO) 34.6 % (13-45); MEAN CORPUSCULAR HEMOGLOBIN 33.9 pg (27.0-33.4); MEAN CORPUSCULAR HGB CONC 34.8 g/dL (32.0-36.0); MEAN CORPUSCULAR VOLUME 97 fl (80-97); MONOCYTES % (AUTO) 7.3 % (3-13); PLATELET COUNT 232 10^3/uL (150-450); RED BLOOD COUNT 4.58 10^6/uL (4.35-5.55); RED CELL DISTRIBUTION WIDTH 14.2 % (11.5-14.0); TOTAL CELLS COUNTED % (AUTO) 100 %; WHITE BLOOD COUNT 8.7 10^3/uL (4.0-10.5)
[2017-11-26 16:16] LABS: APPEARANCE,URINE CLEAR; BILIRUBIN,URINE NEGATIVE (NEGATIVE); COLOR,URINE STRAW; GLUCOSE, URINE >=500 mg/dL (NEGATIVE); KETONES,URINE TRACE mg/dL (NEGATIVE); LEUKOCYTE ESTERASE,URINE NEGATIVE (NEGATIVE); NITRITE,URINE NEGATIVE (NEGATIVE); PROTEIN,URINE NEGATIVE (NEGATIVE); URINE SPECIFIC GRAVITY 1.032; UROBILINOGEN,URINE NEGATIVE mg/dL (<2.0)
[2017-11-26 16:34] LABS: ALANINE AMINOTRANSFERASE 25 U/L (21-72); ALBUMIN 4.1 g/dL (3.5-5.0); ALKALINE PHOSPHATASE 154 U/L (38-126); ANION GAP 13 (5-19); ASPARTATE AMINO TRANSFERASE 23 U/L (17-59); BILIRUBIN,DIRECT 0.3 mg/dL (0.0-0.4); BILIRUBIN,TOTAL 0.6 mg/dL (0.2-1.3); BLOOD UREA NITROGEN 13 mg/dL (7-20); CARBON DIOXIDE 27 mmol/L (22-30); CHLORIDE 96 mmol/L (98-107); POTASSIUM 4.4 mmol/L (3.6-5.0); SODIUM 136.3 mmol/L (137-145)
[2017-11-26 16:51] LABS: GLUCOSE 431 mg/dL (75-110)
== END 2017-11-26 20:54 | disposition left against medical advice (07) ==
LOC: ER 13:41
DX: E11.65 Type 2 diabetes mellitus with hyperglycemia (principal); J45.909 Unspecified asthma, uncomplicated; R06.02 Shortness of breath; I10 Essential (primary) hypertension; I25.2 Old myocardial infarction; Z86.711 Personal history of pulmonary embolism; Z53.20 Procedure and treatment not carried out because of patient's decision for unspecified reasons
CPT/HCPCS: 36415; 80053; 81001; 82962; 85025; 99281

== ENCOUNTER 2017-11-28 10:58 | Emergency (ER) | payer OTHER ==
[2017-11-28] MEDS ORDERED: NORMAL SALINE 1000 ML 1,000 ML IV ONE (11:06)
[2017-11-28] MEDS ORDERED: INSULIN REG, HUMAN 100 UNIT/ML 3 ML VIAL (PYX) IV ONE (11:08)
--- NOTE | 2017-11-28 11:08 | ER Document Report ---
ED General - General TRAVEL OUTSIDE OF THE [place] IN LAST 30 DAYS: No <VANE DIEGO - Last Filed: 11/28/17 11:08> <PATRICK CASTELLANOS - Last Filed: 11/28/17 15:41> - General Stated Complaint: BLOOD SUGAR ISSUES Time Seen by Provider: 11/28/17 11:06 - HPI Notes: 42-year-old male history of diabetes presents with elevated blood sugars. He came to the emergency department 2 days ago, but left before being seen due to long wait. He denies any symptoms associated with his elevated blood sugar. He did vomit 2 times yesterday, but believes this was related to being out in the heat too long. He denies any chest pain, shortness of breath, headaches. He has had some generalized weakness. He states his primary care physician took him off his metformin 1 month ago so that they could "get some labs to try him on an upgraded medicine." They did not bridge him with insulin or any other medications. He has noticed that his heart rate has been elevated, but he has been asymptomatic. Denies any fevers or chills. No other complaints. ( PATRICK CASTELLANOS) - Related Data Allergies/Adverse Reactions: Penicillins Adverse Reaction (Severe, Verified 11/26/17 13:44) Unknown reaction oxycodone Adverse Reaction (Verified 11/26/17 13:44) Past Medical History - Social History Family History: Reviewed & Not Pertinent, CAD - Past Medical History Cardiac Medical History: Reports: Hx Heart Attack - x 2, Hx Hypercholesterolemia , Hx Hypertension Pulmonary Medical History: Reports: Hx Asthma, Hx Sleep Apnea Denies: Hx Pneumonia, Hx Tuberculosis Neurological Medical History: Denies: Hx Seizures Endocrine Medical History: Reports: Hx Diabetes Mellitus Type 2 Renal/ Medical History: Denies: Hx Peritoneal Dialysis Psychiatric Medical History: Denies: Hx Depression Traumatic Medical History: Reports: Hx Fractures - left leg, 2 ribs, skull Past Surgical History: Denies: Hx Pacemaker - Immunizations Hx Diphtheria, Pertussis, Tetanus Vaccination: No - unknown <VANE DIEGO - Last Filed: 11/28/17 11:08> - Social History Smoking Status: Unknown if Ever Smoked Family History: Reviewed & Not Pertinent <PATRICK CASTELLANOS - Last Filed: 11/28/17 15:41> Review of Systems <VANE DIEGO - Last Filed: 11/28/17 11:08> <PATRICK CASTELLANOS Jesus - Last Filed: 11/28/17 15:41> - Review of Systems Notes: Constitutional: Negative for fever. Positive for fatigue HENT: Negative for sore throat. Eyes: Negative for visual changes. Cardiovascular: Negative for chest pain. Respiratory: Negative for shortness of breath. Gastrointestinal: Negative for abdominal pain, diarrhea. Positive for vomiting Genitourinary: Negative for dysuria. Musculoskeletal: Negative for back pain. Skin: Negative for rash. Neurological: Negative for headaches, weakness or numbness. 10 point ROS negative except as marked above and in HPI. (PATRICK CASTELLANOS) Physical Exam <VANE DIEOG - Last Filed: 11/28/17 11:08> <PATRICK CASTELLANOS Jesus - Last Filed: 11/28/17 15:41> - Vital signs Vitals: Pulse Ox 95 11/28/17 11:07 - Notes Notes: PHYSICAL EXAMINATION: GENERAL: Well-appearing, well-nourished and in no acute distress. HEAD: Atraumatic, normocephalic. EYES: Pupils equal round and reactive to light, extraocular movements intact, conjunctiva are normal. ENT: nares patent, oropharynx clear without exudates. Moist mucous membranes. NECK: Normal range of motion, supple without lymphadenopathy LUNGS: Breath sounds clear to auscultation bilaterally and equal. No wheezes rales or rhonchi. HEART: Regular rate and rhythm, no chest wall tenderness ABDOMEN: Soft, nontender, normoactive bowel sounds. No guarding, no rebound. No masses appreciated. EXTREMITIES: Normal range of motion, no pitting or edema. No cyanosis. NEUROLOGICAL: Cranial nerves grossly intact. Normal speech, normal gait. Normal sensory and motor exams. PSYCH: Normal mood, normal affect. SKIN: Warm, Dry, normal turgor, no rashes or lesions noted. (PATRICK CASTELLANOS) Course <VANE DIEGO - Last Filed: 11/28/17 11:08> - Laboratory Result Diagrams: 11/28/17 10:20 <PATRICK CASTELLANOS Jesus - Last Filed: 11/28/17 15:41> - Re-evaluation Re-evalutation: 11/28/17 15:39 Tachycardia resolved. Blood sugar improved with insulin and fluids. He remains a symptomatically. Will restart metformin. Advised close follow-up with his primary care physician. At this time will discharge with return precautions and follow-up recommendations. Verbal discharge instructions given a the bedside and opportunity for questions given. Medication warnings reviewed. Patient is in agreement with this plan and has verbalized understanding of return precautions and the need for primary care follow-up in the next 24-72 hours. (PATRICK CASTELLANOS) - Vital Signs Vital signs: Temp Pulse Resp BP Pulse Ox 95 11/28/17 11:07 - Laboratory Laboratory results interpreted by me: 11/28/17 11/28/17 11/28/17 10:20 11:32 13:37 Chloride 97 L Carbon Dioxide 21 L Glucose 484 H* POC Glucose 398 H 232 H Alkaline Phosphatase 143 H Urine Glucose (UA) 11/28/17 11/28/17 13:40 15:15 Chloride Carbon Dioxide Glucose POC Glucose 237 H Alkaline Phosphatase Urine Glucose (UA) >=500 H Discharge <VANE DIEGO - Last Filed: 11/28/17 11:08> <PATRICK CASTELLANOS - Last Filed: 11/28/17 15:41> - Discharge Clinical Impression: Hyperglycemia, Tachycardia Condition: Stable Disposition: HOME, SELF-CARE Instructions: Hyperglycemia ([facility]) Additional Instructions: Drink plenty of fluids. Low carbohydrate diet. Monitor blood sugars closely. Restart insulin and follow-up closely with your doctor for further management. Prescriptions: Metformin HCl [Glucophage 500 mg Tablet] 500 mg PO BID #60 tablet Referrals: ELO RAJPUT MD [[facility]] - Follow up in 3-5 days
--- NOTE | 2017-11-28 11:57 | RADIOLOGY REPORT (SQ) ---
EXAM DESCRIPTION: CHEST SINGLE VIEW COMPLETED DATE/TIME: 11/28/2017 11:44 am REASON FOR STUDY: tachycardia COMPARISON: Two-view chest 08/30/2017, AP chest 08/03/2017 CT angio chest 06/04/2017 EXAM PARAMETERS: NUMBER OF VIEWS: One view. TECHNIQUE: Single frontal radiographic view of the chest acquired. RADIATION DOSE: NA LIMITATIONS: None. FINDINGS: LUNGS AND PLEURA: Chronic slight lateral costophrenic. No acute infiltrate no pleural eff usion. No pneumothorax. MEDIASTINUM AND HILAR STRUCTURES: No masses. Contour normal. HEART AND VASCULAR STRUCTURES: Heart normal in size. Normal vasculature. BONES: No acute findings. HARDWARE: None in the chest. OTHER: No other significant finding. IMPRESSION: NO ACUTE RADIOGRAPHIC FINDING IN THE CHEST. TECHNICAL DOCUMENTATION: JOB ID: [id number] [employer]- All Rights Reserved Reading location - IP/workstation name: [email or web address]
[2017-11-28 12:28] LABS: ALANINE AMINOTRANSFERASE 31 U/L (21-72); ALBUMIN 4.4 g/dL (3.5-5.0); ALKALINE PHOSPHATASE 143 U/L (38-126); ANION GAP 19 (5-19); ASPARTATE AMINO TRANSFERASE 29 U/L (17-59); BILIRUBIN,DIRECT 0.4 mg/dL (0.0-0.4); BILIRUBIN,TOTAL 0.4 mg/dL (0.2-1.3); BLOOD UREA NITROGEN 11 mg/dL (7-20); CALCIUM 9.2 mg/dL (8.4-10.2); CARBON DIOXIDE 21 mmol/L (22-30); CHLORIDE 97 mmol/L (98-107); CREATINE KINASE 71 U/L (55-170); PHOSPHORUS 4.2 mg/dL (2.5-4.5); POTASSIUM 4.1 mmol/L (3.6-5.0); SODIUM 137.1 mmol/L (137-145); TOTAL PROTEIN 8.2 g/dL (6.3-8.2)
[2017-11-28 12:40] LABS: CREATINE KINASE MB 0.72 ng/mL (<4.55)
[2017-11-28 12:42] LABS: GLUCOSE 484 mg/dL (75-110)
[2017-11-28] MEDS ORDERED: RINGERS SOLUTION,LACTATED 1,000 ML IV PRN (12:43)
[2017-11-28 12:45] LABS: TROPONIN I < 0.012 ng/mL
--- NOTE | 2017-11-28 13:18 | EKG REPORT ---
SEVERITY:- BORDERLINE ECG - SINUS RHYTHM BORDERLINE R WAVE PROGRESSION, ANTERIOR LEADS : Confirmed by: Cedric Bagley MD 28-Nov-2017 13:18:16
[2017-11-28 15:02] LABS: APPEARANCE,URINE CLEAR; BILIRUBIN,URINE NEGATIVE (NEGATIVE); COLOR,URINE YELLOW; GLUCOSE, URINE >=500 mg/dL (NEGATIVE); KETONES,URINE NEGATIVE (NEGATIVE); LEUKOCYTE ESTERASE,URINE NEGATIVE (NEGATIVE); NITRITE,URINE NEGATIVE (NEGATIVE); PROTEIN,URINE NEGATIVE (NEGATIVE); URINE SPECIFIC GRAVITY 1.033; UROBILINOGEN,URINE NEGATIVE mg/dL (<2.0)
[2017-11-28 16:34] VITALS: BP 113/82
== END 2017-11-28 16:34 | disposition home or self-care (01) ==
LOC: ER 10:58
DX: E11.65 Type 2 diabetes mellitus with hyperglycemia (principal); R00.0 Tachycardia, unspecified; R53.1 Weakness; I25.2 Old myocardial infarction; I10 Essential (primary) hypertension; J45.909 Unspecified asthma, uncomplicated
CPT/HCPCS: 93005; 99284; 96360; 36415; 87086; 82553; 82962; 82550; 83735; 84100; 80053; 81001; 84484; 71045; 93010; J1815; J7030

== ENCOUNTER → 2017-12-06 | Outpatient (CLI) | payer OTHER ==
--- NOTE | 2017-12-06 16:32 | RADIOLOGY REPORT (SQ) ---
EXAM DESCRIPTION: CHEST PA/LATERAL COMPLETED DATE/TIME: 12/06/2017 4:12 pm REASON FOR STUDY: WHEEZING,DYSPNEA COMPARISON: 11/28/2017 EXAM PARAMETERS: NUMBER OF VIEWS: two views TECHNIQUE: Digital Frontal and Lateral radiographic views of the chest acquired. RADIATION DOSE: NA LIMITATIONS: none FINDINGS: LUNGS AND PLEURA: No opacities, masses or pneumothorax. No pleural effusion. MEDIASTINUM AND HILAR STRUCTURES: No masses or contour abnormalities. HEART AND VASCULAR STRUCTURES: Heart normal size. No evidence for failure. BONES: No acute findings. HARDWARE: None in the chest. OTHER: No other significant finding. IMPRESSION: NO SIGNIFICANT RADIOGRAPHIC FINDING IN THE CHEST. TECHNICAL DOCUMENTATION: JOB ID: [id number] [employer]- All Rights Reserved Reading location - IP/workstation name: [email or web address]
[2017-12-06 17:10] LABS: ABSOLUTE BASOPHILS # (AUTO) 0.1 10^3/uL (0.0-0.2); ABSOLUTE EOSINOPHILS # (AUTO) 0.3 10^3/uL (0.0-0.6); ABSOLUTE LYMPHOCYTES (AUTO) 3.6 10^3/uL (0.5-4.7); ABSOLUTE MONOCYTES (AUTO) 0.7 10^3/uL (0.1-1.4); ABSOLUTE NEUT (AUTO) 3.4 10^3/uL (1.7-8.2); BASOPHILS % (AUTO) 0.7 % (0-2); EOSINOPHILS % (AUTO) 3.1 % (0-6); HEMATOCRIT 42.9 % (37.9-51.0); HEMOGLOBIN 15.2 g/dL (13.5-17.0); LYMPHOCYTES % (AUTO) 44.7 % (13-45); MEAN CORPUSCULAR HEMOGLOBIN 34.6 pg (27.0-33.4); MEAN CORPUSCULAR HGB CONC 35.3 g/dL (32.0-36.0); MEAN CORPUSCULAR VOLUME 98 fl (80-97); MONOCYTES % (AUTO) 8.5 % (3-13); PLATELET COUNT 227 10^3/uL (150-450); RED BLOOD COUNT 4.38 10^6/uL (4.35-5.55); TOTAL CELLS COUNTED % (AUTO) 100 %; WHITE BLOOD COUNT 7.9 10^3/uL (4.0-10.5)
[2017-12-06 17:55] LABS: ALANINE AMINOTRANSFERASE 33 U/L (21-72); ALBUMIN 4.3 g/dL (3.5-5.0); ALKALINE PHOSPHATASE 114 U/L (38-126); ANION GAP 13 (5-19); ASPARTATE AMINO TRANSFERASE 26 U/L (17-59); BILIRUBIN,DIRECT 0.3 mg/dL (0.0-0.4); BILIRUBIN,TOTAL 0.6 mg/dL (0.2-1.3); BLOOD UREA NITROGEN 12 mg/dL (7-20); CALCIUM 9.9 mg/dL (8.4-10.2); CARBON DIOXIDE 27 mmol/L (22-30); CHLORIDE 100 mmol/L (98-107); GLUCOSE 214 mg/dL (75-110); POTASSIUM 3.9 mmol/L (3.6-5.0); SODIUM 139.9 mmol/L (137-145)
== END ==
LOC: CCC 15:52
DX: R06.00 Dyspnea, unspecified (principal); R06.2 Wheezing; E11.8 Type 2 diabetes mellitus with unspecified complications
CPT/HCPCS: 36415; 71046; 80053; 83036; 85025

== ENCOUNTER → 2018-04-12 | Outpatient (CLI) | payer OTHER ==
[2018-04-12 16:58] LABS: ABSOLUTE EOSINOPHILS # (AUTO) 0.2 10^3/uL (0.0-0.6); ABSOLUTE LYMPHOCYTES (AUTO) 3.5 10^3/uL (0.5-4.7); ABSOLUTE MONOCYTES (AUTO) 0.9 10^3/uL (0.1-1.4); ABSOLUTE NEUT (AUTO) 4.6 10^3/uL (1.7-8.2); BASOPHILS % (AUTO) 0.3 % (0-2); EOSINOPHILS % (AUTO) 2.7 % (0-6); HEMATOCRIT 47.2 % (37.9-51.0); HEMOGLOBIN 16.6 g/dL (13.5-17.0); LYMPHOCYTES % (AUTO) 38.1 % (13-45); MEAN CORPUSCULAR HEMOGLOBIN 33.8 pg (27.0-33.4); MEAN CORPUSCULAR HGB CONC 35.1 g/dL (32.0-36.0); MEAN CORPUSCULAR VOLUME 96 fl (80-97); MONOCYTES % (AUTO) 9.6 % (3-13); PLATELET COUNT 231 10^3/uL (150-450); RED BLOOD COUNT 4.89 10^6/uL (4.35-5.55); RED CELL DISTRIBUTION WIDTH 13.5 % (11.5-14.0); SEGMENTED NEUTROPHILS % (AUTO) 49.3 % (42-78); TOTAL CELLS COUNTED % (AUTO) 100 %; WHITE BLOOD COUNT 9.3 10^3/uL (4.0-10.5)
[2018-04-12 17:14] LABS: ALANINE AMINOTRANSFERASE 20 U/L (21-72); ALBUMIN 4.5 g/dL (3.5-5.0); ALKALINE PHOSPHATASE 110 U/L (38-126); ANION GAP 10 (5-19); ASPARTATE AMINO TRANSFERASE 26 U/L (17-59); BILIRUBIN,DIRECT 0.2 mg/dL (0.0-0.4); BILIRUBIN,TOTAL 0.5 mg/dL (0.2-1.3); BLOOD UREA NITROGEN 14 mg/dL (7-20); CALCIUM 9.9 mg/dL (8.4-10.2); CARBON DIOXIDE 27 mmol/L (22-30); CHLORIDE 99 mmol/L (98-107); GLUCOSE 269 mg/dL (75-110); POTASSIUM 3.8 mmol/L (3.6-5.0); SODIUM 136.2 mmol/L (137-145); TOTAL PROTEIN 8.1 g/dL (6.3-8.2)
== END ==
LOC: CCC 16:13
DX: Z00.00 Encounter for general adult medical examination without abnormal findings (principal)
CPT/HCPCS: 36415; 80053; 83036; 85025

== ENCOUNTER 2018-06-30 16:19 | Emergency (ER) | payer SELFPAY ==
--- NOTE | 2018-06-30 17:01 | ER Document Report ---
ED Medical Screen (RME) - General Chief Complaint: Abdominal Pain Stated Complaint: RIGHT FLANK PAIN Time Seen by Provider: 06/30/18 16:58 Primary Care Provider: [facility] [Primary Care Provider] - Follow up as needed Notes: Patient is here complaining of pain in his left shoulder for the past month. He has had pain in his left side for just a day. These are exactly the same symptoms that he had about 15 months ago when he was found to have blood clots in his lungs. He went to another hospital where he underwent what sounds like a possible thrombectomy where they stuck a needle in the back of his left chest. Reviewing readings of CT scans here showed the patient did have some pulmonary emboli in the left side but also had a left pleural effusion. Patient says he is feeling nauseated but not vomiting. Has had some cough, but not producing any significant amount of phlegm. Has not had any fever. Patient does smoke a pack of cigarettes daily. TRAVEL OUTSIDE OF THE [place] IN LAST 30 DAYS: No - Related Data Allergies/Adverse Reactions: Penicillins Adverse Reaction (Severe, Verified 11/26/17 13:44) Unknown reaction oxycodone Adverse Reaction (Verified 11/26/17 13:44) Past Medical History - Social History Frequency of alcohol use: None Drug Abuse: None - Past Medical History Cardiac Medical History: Reports: Hx Heart Attack - x 2, Hx Hypercholesterolemia, Hx Hypertension Pulmonary Medical History: Reports: Hx Asthma, Hx Sleep Apnea Denies: Hx Pneumonia, Hx Tuberculosis Neurological Medical History: Denies: Hx Seizures Endocrine Medical History: Reports: Hx Diabetes Mellitus Type 2 Renal/ Medical History: Denies: Hx Peritoneal Dialysis Psychiatric Medical History: Denies: Hx Depression Traumatic Medical History: Reports: Hx Fractures - left leg, 2 ribs, skull Past Surgical History: Denies: Hx Pacemaker - Immunizations Hx Diphtheria, Pertussis, Tetanus Vaccination: No - unknown History of Influenza Vaccine for 01/2017 - 06/2017 Season: No Physical Exam - Vital signs Vitals: Temp Pulse Resp BP Pulse Ox 98.3 F 95 18 126/54 H 97 06/30/18 16:34 06/30/18 16:34 06/30/18 16:34 06/30/18 16:34 06/30/18 16:34 Course - Vital Signs Vital signs: Temp Pulse Resp BP Pulse Ox 98.3 F 95 18 126/54 H 97 06/30/18 16:34 06/30/18 16:34 06/30/18 16:34 06/30/18 16:34 06/30/18 16:34 Doctor's Discharge - Discharge [facility]errals: [facility] [Primary Care Provider] - Follow up as needed
[2018-06-30 18:03] LABS: APPEARANCE,URINE CLEAR; BILIRUBIN,URINE NEGATIVE (NEGATIVE); COLOR,URINE YELLOW; GLUCOSE, URINE >=500 mg/dL (NEGATIVE); KETONES,URINE NEGATIVE (NEGATIVE); LEUKOCYTE ESTERASE,URINE NEGATIVE (NEGATIVE); NITRITE,URINE NEGATIVE (NEGATIVE); PROTEIN,URINE NEGATIVE (NEGATIVE); URINE SPECIFIC GRAVITY 1.037; UROBILINOGEN,URINE NEGATIVE mg/dL (<2.0)
[2018-06-30 18:04] LABS: ABSOLUTE EOSINOPHILS # (AUTO) 0.3 10^3/uL (0.0-0.6); ABSOLUTE LYMPHOCYTES (AUTO) 3.4 10^3/uL (0.5-4.7); ABSOLUTE MONOCYTES (AUTO) 0.6 10^3/uL (0.1-1.4); ABSOLUTE NEUT (AUTO) 4.4 10^3/uL (1.7-8.2); BASOPHILS % (AUTO) 0.3 % (0-2); EOSINOPHILS % (AUTO) 3.3 % (0-6); HEMATOCRIT 46.8 % (37.9-51.0); HEMOGLOBIN 16.3 g/dL (13.5-17.0); LYMPHOCYTES % (AUTO) 39.1 % (13-45); MEAN CORPUSCULAR HEMOGLOBIN 34.3 pg (27.0-33.4); MEAN CORPUSCULAR HGB CONC 34.8 g/dL (32.0-36.0); MEAN CORPUSCULAR VOLUME 98 fl (80-97); MONOCYTES % (AUTO) 6.8 % (3-13); PLATELET COUNT 230 10^3/uL (150-450); RED BLOOD COUNT 4.76 10^6/uL (4.35-5.55); RED CELL DISTRIBUTION WIDTH 13.4 % (11.5-14.0); SEGMENTED NEUTROPHILS % (AUTO) 50.5 % (42-78); TOTAL CELLS COUNTED % (AUTO) 100 %; WHITE BLOOD COUNT 8.8 10^3/uL (4.0-10.5)
[2018-06-30 18:10] LABS: ALANINE AMINOTRANSFERASE 21 U/L (21-72); ALBUMIN 4.5 g/dL (3.5-5.0); ALKALINE PHOSPHATASE 190 U/L (38-126); ANION GAP 12 (5-19); ASPARTATE AMINO TRANSFERASE 17 U/L (17-59); BILIRUBIN,DIRECT 0.3 mg/dL (0.0-0.4); BILIRUBIN,TOTAL 0.5 mg/dL (0.2-1.3); BLOOD UREA NITROGEN 10 mg/dL (7-20); CALCIUM 9.9 mg/dL (8.4-10.2); CARBON DIOXIDE 26 mmol/L (22-30); CHLORIDE 98 mmol/L (98-107); LIPASE 73.9 U/L (23-300); POTASSIUM 3.9 mmol/L (3.6-5.0); SODIUM 136.1 mmol/L (137-145); TOTAL PROTEIN 7.9 g/dL (6.3-8.2)
[2018-06-30 18:20] LABS: GLUCOSE 418 mg/dL (75-110)
--- NOTE | 2018-06-30 18:52 | ER Document Report ---
ED General - General Chief Complaint: Abdominal Pain Stated Complaint: RIGHT FLANK PAIN Time Seen by Provider: 06/30/18 16:58 Primary Care Provider: [facility] [NO LOCAL MD] - Follow up as needed Notes: Patient is a 43-year-old male with history of PE that presents to the emergency department for chief complaint of left shoulder pain, that radiates down his left side, and into his lower abdomen. He has been having this pain for about a month now, but it seemed to get worse yesterday so he decided come to the department. He states about a year ago he had a hemothorax, and was treated at that time with Pleurx catheter, and hemolysis and was on Eliquis for about a month afterwards, and was discontinued he states by the physicians. He states this sort of feels similar to that so he wanted to be evaluated to see if it had returned. Denies having any significant shortness of breath, difficulty breathing, nausea, vomiting, diarrhea. He denies any dysuria, hematuria. 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 Past Medical History: Diabetes mellitus, history of hemothorax Past Surgical History: Pleurx catheter placement Social History: Admits to smoking cigarettes, denies alcohol or drug use. Family History: Reviewed and noncontributory for presenting illness Allergies: Reviewed, see documented allergy list. REVIEW OF SYSTEMS: Other than noted above, the 12 point review of systems was reviewed with the patient and were negative, all pertinent findings are included in the HPI. PHYSICAL EXAMINATION: Vital signs reviewed, nursing noted reviewed. GENERAL: Well-appearing, well-nourished and in no acute distress. HEAD: Atraumatic, normocephalic. EYES: Eyes appear normal, extraocular movements intact, sclera anicteric, conjunctiva are normal. ENT: nares patent, oropharynx clear without exudates. Moist mucous membranes. NECK: Normal range of motion, supple without lymphadenopathy LUNGS: Bilateral wheezing noted throughout all lung ordonez, no acute respiratory distress however. HEART: Regular rate and rhythm without murmurs ABDOMEN: Soft, nontender, normoactive bowel sounds. No rebound, guarding, or rigidity. No masses appreciated. EXTREMITIES: Nontender, good range of motion, no pitting or edema. NEUROLOGICAL: No focal neurological deficits. Moves all extremities spontaneousl y Motor and sensory grossly intact on exam. PSYCH: Normal mood, normal affect. SKIN: Warm, Dry, normal turgor, no rashes or lesions noted on exposed skin TRAVEL OUTSIDE OF THE [place] IN LAST 30 DAYS: No - Related Data Allergies/Adverse Reactions: Penicillins Adverse Reaction (Severe, Verified 11/26/17 13:44) Unknown reaction oxycodone Adverse Reaction (Verified 11/26/17 13:44) Past Medical History - Social History Smoking Status: Current Every Day Smoker Frequency of alcohol use: None Drug Abuse: None Family History: Reviewed & Not Pertinent Patient has suicidal ideation: No Patient has homicidal ideation: No - Past Medical History Cardiac Medical History: Reports: Hx Heart Attack - x 2, Hx Hypercholesterolemia, Hx Hypertension Pulmonary Medical History: Reports: Hx Asthma, Hx Sleep Apnea Denies: Hx Pneumonia, Hx Tuberculosis Neurological Medical History: Denies: Hx Seizures Endocrine Medical History: Reports: Hx Diabetes Mellitus Type 2 Renal/ Medical History: Denies: Hx Peritoneal Dialysis Psychiatric Medical History: Denies: Hx Depression Traumatic Medical History: Reports: Hx Fractures - left leg, 2 ribs, skull Past Surgical History: Denies: Hx Pacemaker - Immunizations Hx Diphtheria, Pertussis, Tetanus Vaccination: No - unknown Physical Exam - Vital signs Vitals: Temp Pulse Resp BP Pulse Ox 98.3 F 95 18 126/54 H 97 06/30/18 16:34 06/30/18 16:34 06/30/18 16:34 06/30/18 16:34 06/30/18 16:34 Course - Re-evaluation Re-evalutation: Patient seen and examined vital signs reviewed. Laboratory data and imaging were ordered as appropriate for the patient's presenting symptoms and complaint, with consideration of any critical or life threatening conditions that may be associated with their obtained history and exam as noted above. Patient was treated with DuoNeb breathing treatment Results were reviewed when available and demonstrated negative CTA of the chest, no effusion, no PE, chest x-ray was negative as well, blood work was unremarkable with the exception of hyperglycemia, without evidence of DKA, no acidosis. The patient was re-evaluated and was stable, wheezing was improved after treatment Evaluation was most consistent with bronchospasm, possible underlying COPD, hyperglycemia, and abdominal pain, unspecified, possibly related to muscular skeletal pain. Results were discussed with the patient at this point, after careful consideration I feel that that patient can be discharged from the emergency department, the patient was educated treatments and reasons to return to the emergency department based on their presumed diagnosis as noted above, they were advised to followup with a primary care physician in 2-3 days. Patient was agreeable to plan of care. *Note is created using voice recognition software and may contain spelling, syntax or grammatical errors. Laboratory 06/30/18 06/30/18 06/30/18 17:05 17:05 17:05 WBC 8.8 RBC 4.76 Hgb 16.3 Hct 46.8 MCV 98 H MCH 34.3 H MCHC 34.8 RDW 13.4 Plt Count 230 Seg Neutrophils % 50.5 Lymphocytes % 39.1 Monocytes % 6.8 Eosinophils % 3.3 Basophils % 0.3 Absolute Neutrophils 4.4 Absolute Lymphocytes 3.4 Absolute Monocytes 0.6 Absolute Eosinophils 0.3 Absolute Basophils 0.0 Sodium 136.1 L Potassium 3.9 Chloride 98 Carbon Dioxide 26 Anion Gap 12 BUN 10 Creatinine 0.61 Est GFR ( Amer) > 60 Est GFR (Non-Af Amer) > 60 Glucose 418 H* Calcium 9.9 Total Bilirubin 0.5 Direct Bilirubin 0.3 Neonat Total Bilirubin Not Reportable Neonat Direct Bilirubin Not Reportable Neonat Indirect Bili Not Reportable AST 17 ALT 21 Alkaline Phosphatase 190 H Troponin I < 0.012 Total Protein 7.9 Albumin 4.5 Lipase 73.9 Urine Color Urine Appearance Urine pH Ur Specific [place] Urine Protein Urine Glucose (UA) Urine Ketones Urine Blood Urine Nitrite Urine Bilirubin Urine Urobilinogen Ur Leukocyte Esterase Urine WBC (Auto) Urine RBC (Auto) Squamous Epi Cells Auto Urine Mucus (Auto) Urine Ascorbic Acid 06/30/18 17:49 WBC RBC Hgb Hct MCV MCH MCHC RDW Plt Count Seg Neutrophils % Lymphocytes % Monocytes % Eosinophils % Basophils % Absolute Neutrophils Absolute Lymphocytes Absolute Monocytes Absolute Eosinophils Absolute Basophils Sodium Potassium Chloride Carbon Dioxide Anion Gap BUN Creatinine Est GFR ( Amer) Est GFR (Non-Af Amer) Glucose Calcium Total Bilirubin Direct Bilirubin Neonat Total Bilirubin Neonat Direct Bilirubin Neonat Indirect Bili AST ALT Alkaline Phosphatase Troponin I Total Protein Albumin Lipase Urine Color YELLOW Urine Appearance CLEAR Urine pH 5.0 Ur Specific [place] 1.037 Urine Protein NEGATIVE Urine Glucose (UA) >=500 H Urine Ketones NEGATIVE Urine Blood NEGATIVE Urine Nitrite NEGATIVE Urine Bilirubin NEGATIVE Urine Urobilinogen NEGATIVE Ur Leukocyte Esterase NEGATIVE Urine WBC (Auto) 0 Urine RBC (Auto) 1 Squamous Epi Cells Auto <1 Urine Mucus (Auto) RARE Urine Ascorbic Acid NEGATIVE Chest X-Ray 06/30/18 17:10 IMPRESSION: NO ACUTE RADIOGRAPHIC FINDING IN THE CHEST. Chest/Abdomen CTA 06/30/18 17:12 IMPRESSION: No pulmonary embolus. - Vital Signs Vital signs: Temp Pulse Resp BP Pulse Ox 98.3 F 95 18 126/54 H 97 06/30/18 16:34 06/30/18 16:34 06/30/18 16:34 06/30/18 16:34 06/30/18 16:34 - Laboratory Result Diagrams: 06/30/18 17:05 06/30/18 17:05 Laboratory results interpreted by me: 06/30/18 06/30/18 06/30/18 17:05 17:05 17:49 MCV 98 H MCH 34.3 H Sodium 136.1 L Glucose 418 H* Alkaline Phosphatase 190 H Urine Glucose (UA) >=500 H Discharge - Discharge Clinical Impression: Bronchospasm, Hyperglycemia Shoulder pain, left Qualifiers: Chronicity: chronic Qualified Code(s): M25.512 - Pain in left shoulder; G89.29 - Other chronic pain Abdominal pain Qualifiers: Abdominal location: unspecified location Qualified Code(s): R10.9 - Unspecified abdominal pain Condition: Stable Disposition: HOME, SELF-CARE Instructions: Abdominal Pain ([facility]), Bronchospasm ([facility]) Additional Instructions: Please use the dispensed inhaler 2 puffs every 4 hours as needed, however over the next 3-5 days I would encourage you to use this at least 3-4 times a day to help with your wheezing. These follow-up with your primary care physician regarding your elevated blood sugars, as this will need to be better controlled. [facility]: [facility] [NO LOCAL MD] - Follow up in 3-5 days
[2018-06-30] MEDS ORDERED: IPRATROPIUM/ALBUTEROL 0.5-2.5 MG/3 ML AMPUL NEB ONE (19:39)
--- NOTE | 2018-06-30 19:49 | RADIOLOGY REPORT (SQ) ---
EXAM DESCRIPTION: CHEST 2 VIEWS COMPLETED DATE/TIME: 06/30/2018 7:40 pm REASON FOR STUDY: Left side and chest pain with Hx PEs and pulmonary COMPARISON: 11/28/2017 EXAM PARAMETERS: NUMBER OF VIEWS: two views TECHNIQUE: Digital Frontal and Lateral radiographic views of the chest acquired. RADIATION DOSE: NA LIMITATIONS: none FINDINGS: LUNGS AND PLEURA: No opacities, masses or pneumothorax. No pleural effusion. MEDIASTINUM AND HILAR STRUCTURES: No masses or contour abnormalities. HEART AND VASCULAR STRUCTURES: Heart normal size. No evidence for failure. BONES: No acute findings. HARDWARE: None in the chest. OTHER: No other significant finding. IMPRESSION: NO ACUTE RADIOGRAPHIC FINDING IN THE CHEST. TECHNICAL DOCUMENTATION: JOB ID: [id number] [employer]- All Rights Reserved Reading location - IP/workstation name: [email or web address]
--- NOTE | 2018-06-30 20:16 | RADIOLOGY REPORT (SQ) ---
EXAM DESCRIPTION: CT CHEST ANGIOGRAPHY WITHOUT THEN WITH IV CONTRAST COMPLETED DATE/TME: 06/30/2018 17:12 CLINICAL HISTORY: 43 years, Male, Left side and chest pain with Hx PEs and pleural e COMPARISON: June 04, 2017 TECHNIQUE: Axial images through the chest were performed after the administration of intravenous contrast using a pulmonary embolus protocol. MIPS were performed. This exam was performed according to our departmental dose-optimization program which includes use of Automated Exposure Control, adjustment of the mA and/or kV according to patient size and/or use of iterative reconstruction technique. FINDINGS: No pulmonary embolus is identified. Normal caliber aorta without dissection. No pericardial effusion. No pleural effusion. No focal lung consolidation. No pneumothorax. Patent central airway. Soft tissues are unremarkable. No acute osseous findings. No acute abnormality within the visualized upper abdomen. IMPRESSION: No pulmonary embolus.
[2018-06-30] MEDS ORDERED: ALBUTEROL SULFATE HFA (90 MCG/PUFF) 8 GM MDI (1 MDI/ER DISP) IH ONE (20:39)
[2018-06-30 20:56] VITALS: BP 124/75
--- NOTE | 2018-06-30 21:15 | EKG REPORT ---
SEVERITY:- NORMAL ECG - SINUS RHYTHM : Confirmed by: Cedric Bagley MD 30-Jun-2018 21:14:52
== END 2018-06-30 20:56 | disposition home or self-care (01) ==
LOC: ER 16:19
DX: M25.512 Pain in left shoulder (principal); E11.65 Type 2 diabetes mellitus with hyperglycemia; J98.01 Acute bronchospasm; R10.9 Unspecified abdominal pain; E11.9 Type 2 diabetes mellitus without complications; I10 Essential (primary) hypertension; F17.210 Nicotine dependence, cigarettes, uncomplicated; E78.00 Pure hypercholesterolemia, unspecified; Z88.0 Allergy status to penicillin; Z88.6 Allergy status to analgesic agent; Z86.711 Personal history of pulmonary embolism; I25.2 Old myocardial infarction
CPT/HCPCS: 93005; 94640; 99284; 36415; 83690; 85025; 80053; 81001; 84484; 71046; 71275; 93010; J3490; J7620

== ENCOUNTER 2018-09-25 10:20 | Emergency (ER) | payer SELFPAY ==
[2018-09-25 10:27] VITALS: BP 145/72
[2018-09-25] MEDS ORDERED: NORMAL SALINE 1000 ML 1,000 ML IV ONE (10:39)
--- NOTE | 2018-09-25 10:43 | ER Document Report ---
ED Medical Screen (RME) - General Chief Complaint: Flank Pain Stated Complaint: FLANK PAIN Time Seen by Provider: 09/25/18 10:36 Mode of Arrival: Ambulatory Information source: Patient Notes: 43-year-old male presented to ED with complaint of left flank pain since Sunday night. He states he has had some blood in his urine his urine is been darker. He states he smokes about a pack a day and drinks maybe once a year. He is alert oriented respirations regular and unlabored speaking in full sentences. He states he has had a pulmonary emboli, kidney stones, and diabetes. He states it feels like all of them. I have greeted and performed a rapid initial assessment of this patient. A comprehensive ED assessment and evaluation of the patient, analysis of test results and completion of medical decision making process will be conducted by an additional ED providers. Dictation of this chart was performed using voice recognition software; therefore, there may be some unintended grammatical errors. TRAVEL OUTSIDE OF THE [place] IN LAST 30 DAYS: No - Related Data Allergies/Adverse Reactions: Penicillins Adverse Reaction (Severe, Verified 09/25/18 10:22) Unknown reaction oxycodone Adverse Reaction (Verified 09/25/18 10:22) Past Medical History - Past Medical History Cardiac Medical History: Reports: Hx Heart Attack - x 2, Hx Hypercholesterolemia, Hx Hypertension Pulmonary Medical History: Reports: Hx Asthma, Hx Sleep Apnea Denies: Hx Pneumonia, Hx Tuberculosis Neurological Medical History: Denies: Hx Seizures Endocrine Medical History: Reports: Hx Diabetes Mellitus Type 2 Renal/ Medical History: Denies: Hx Peritoneal Dialysis Psychiatric Medical History: Denies: Hx Depression Traumatic Medical History: Reports: Hx Fractures - left leg, 2 ribs, skull Past Surgical History: Denies: Hx Pacemaker - Immunizations Hx Diphtheria, Pertussis, Tetanus Vaccination: No - unknown History of Influenza Vaccine for 01/2017 - 06/2017 Season: No Physical Exam - Vital signs Vitals: Temp Pulse Resp BP Pulse Ox 98.2 F 92 15 145/72 H 94 09/25/18 10:26 09/25/18 10:26 09/25/18 10:26 09/25/18 10:09/25/18 10:26 Course - Vital Signs Vital signs: Temp Pulse Resp BP Pulse Ox 98.2 F 92 15 145/72 H 94 09/25/18 10:26 09/25/18 10:26 09/25/18 10:26 09/25/18 10:26 09/25/18 10:26
[2018-09-25] MEDS: NORMAL SALINE 1000 ML 1,000 ML IV PRN ×2 (11:28→12:56)
--- NOTE | 2018-09-25 11:28 | RADIOLOGY REPORT (SQ) ---
EXAM DESCRIPTION: CHEST 2 VIEWS COMPLETED DATE/TIME: 09/25/2018 11:16 am REASON FOR STUDY: left flank pain COMPARISON: 06/30/2018 EXAM PARAMETERS: NUMBER OF VIEWS: two views TECHNIQUE: Digital Frontal and Lateral radiographic views of the chest acquired. RADIATION DOSE: NA LIMITATIONS: none FINDINGS: LUNGS AND PLEURA: No opacities, masses or pneumothorax. No pleural effusion. MEDIASTINUM AND HILAR STRUCTURES: No masses or contour abnormalities. HEART AND VASCULAR STRUCTURES: Heart normal size. No evidence for failure. BONES: No acute findings. HARDWARE: None in the chest. OTHER: No other significant finding. IMPRESSION: No acute abnormality of the lungs. No focal airspace opacity. TECHNICAL DOCUMENTATION: JOB ID: [id number] [employer]- All Rights Reserved Reading location - IP/workstation name: [email or web address]
[2018-09-25 11:37] LABS: ABSOLUTE EOSINOPHILS # (AUTO) 0.3 10^3/uL (0.0-0.6); ABSOLUTE LYMPHOCYTES (AUTO) 2.6 10^3/uL (0.5-4.7); ABSOLUTE MONOCYTES (AUTO) 0.7 10^3/uL (0.1-1.4); ABSOLUTE NEUT (AUTO) 4.5 10^3/uL (1.7-8.2); BASOPHILS % (AUTO) 0.4 % (0-2); EOSINOPHILS % (AUTO) 4.3 % (0-6); HEMATOCRIT 47.4 % (37.9-51.0); LYMPHOCYTES % (AUTO) 32.2 % (13-45); MEAN CORPUSCULAR HEMOGLOBIN 33.5 pg (27.0-33.4); MEAN CORPUSCULAR HGB CONC 33.7 g/dL (32.0-36.0); MEAN CORPUSCULAR VOLUME 99 fl (80-97); MONOCYTES % (AUTO) 8.3 % (3-13); PLATELET COUNT 219 10^3/uL (150-450); RED BLOOD COUNT 4.78 10^6/uL (4.35-5.55); RED CELL DISTRIBUTION WIDTH 13.1 % (11.5-14.0); SEGMENTED NEUTROPHILS % (AUTO) 54.8 % (42-78); TOTAL CELLS COUNTED % (AUTO) 100 %; WHITE BLOOD COUNT 8.1 10^3/uL (4.0-10.5)
[2018-09-25 11:51] LABS: ALANINE AMINOTRANSFERASE 19 U/L (21-72); ALBUMIN 4.2 g/dL (3.5-5.0); ALKALINE PHOSPHATASE 212 U/L (38-126); ANION GAP 10 (5-19); ASPARTATE AMINO TRANSFERASE 17 U/L (17-59); BILIRUBIN,DIRECT 0.3 mg/dL (0.0-0.4); BILIRUBIN,TOTAL 0.4 mg/dL (0.2-1.3); BLOOD UREA NITROGEN 13 mg/dL (7-20); CALCIUM 9.7 mg/dL (8.4-10.2); CARBON DIOXIDE 31 mmol/L (22-30); CHLORIDE 95 mmol/L (98-107); LIPASE 91.6 U/L (23-300); SODIUM 136.3 mmol/L (137-145); TOTAL PROTEIN 7.7 g/dL (6.3-8.2)
[2018-09-25 11:57] LABS: VENOUS BLOOD HCO3 27.9 mmol/L (20-32); VENOUS BLOOD PCO2 53.1 mmHg (35-63); VENOUS BLOOD PH 7.34 (7.30-7.42)
[2018-09-25 11:58] LABS: GLUCOSE 566 mg/dL (75-110)
[2018-09-25 12:04] LABS: APPEARANCE,URINE CLEAR; BILIRUBIN,URINE NEGATIVE (NEGATIVE); COLOR,URINE STRAW; GLUCOSE, URINE >=500 mg/dL (NEGATIVE); KETONES,URINE TRACE mg/dL (NEGATIVE); LEUKOCYTE ESTERASE,URINE NEGATIVE (NEGATIVE); NITRITE,URINE NEGATIVE (NEGATIVE); PROTEIN,URINE NEGATIVE (NEGATIVE); URINE SPECIFIC GRAVITY 1.031; UROBILINOGEN,URINE NEGATIVE mg/dL (<2.0)
[2018-09-25] MEDS ORDERED: INSULIN REG, HUMAN 100 UNIT/ML 3 ML VIAL (PYX) SUBCUT ONE (13:00)
--- NOTE | 2018-09-25 13:01 | ER Document Report ---
ED General - General Chief Complaint: Flank Pain Stated Complaint: FLANK PAIN Time Seen by Provider: 09/25/18 10:36 Mode of Arrival: Ambulatory Notes: 43-year-old male with history of PE, nephrolithiasis, diabetes presents to the emergency department chief complaint of left flank pain since Sunday night. He said it is stabbing and unlike his history of back pain. He said it is in the right lower flank area and radiates around to his abdomen. He says that his urine had some blood in it and it has been darker in color. He currently says there is no blood in it. He denies any fevers or chills, nausea or intractable vomiting, diarrhea, any other abdominal pain, denies epigastric pain, denies chest pain or shortness of breath, no other complaints. TRAVEL OUTSIDE OF THE [place] IN LAST 30 DAYS: No - Related Data Allergies/Adverse Reactions: Penicillins Adverse Reaction (Severe, Verified 09/25/18 10:22) Unknown reaction oxycodone Adverse Reaction (Verified 09/25/18 10:22) Past Medical History - General Information source: Patient - Social History Smoking Status: Current Every Day Smoker Chew tobacco use (# tins/day): No Frequency of alcohol use: None Drug Abuse: None Family History: Reviewed & Not Pertinent Patient has suicidal ideation: No Patient has homicidal ideation: No - Past Medical History Cardiac Medical History: Reports: Hx Heart Attack - x 2, Hx Hypercholesterolemia, Hx Hypertension Pulmonary Medical History: Reports: Hx Asthma, Hx Sleep Apnea Denies: Hx Pneumonia, Hx Tuberculosis Neurological Medical History: Denies: Hx Seizures Endocrine Medical History: Reports: Hx Diabetes Mellitus Type 2 Renal/ Medical History: Reports: Hx Kidney Stones. Denies: Hx Peritoneal Dialysis Psychiatric Medical History: Denies: Hx Depression Traumatic Medical History: Reports: Hx Fractures - left leg, 2 ribs, skull Past Surgical History: Denies: Hx Pacemaker - Immunizations Hx Diphtheria, Pertussis, Tetanus Vaccination: No - unknown Review of Systems - Review of Systems Constitutional: See HPI EENT: No symptoms reported Cardiovascular: See HPI Respiratory: See HPI Gastrointestinal: See HPI Genitourinary: See HPI Male Genitourinary: No symptoms reported Musculoskeletal: See HPI Skin: No symptoms reported Hematologic/Lymphatic: No symptoms reported Neurological/Psychological: No symptoms reported Physical Exam - Vital signs Vitals: Temp Pulse Resp BP Pulse Ox 98.2 F 92 15 145/72 H 94 09/25/18 10:26 09/25/18 10:09/25/18 10:09/25/18 10:09/25/18 10:26 - Notes Notes: PHYSICAL EXAMINATION: Reviewed vital signs and charting by RN GENERAL: Alert, interacts well. No acute distress. HEAD: Normocephalic, atraumatic. EYES: Pupils equal and round. Extraocular movements intact. ENT: Oral mucosa moist, tongue midline. NECK: Full range of motion. Trachea midline. LUNGS: Clear to auscultation bilaterally, inspiratory wheezes, rales, or rhonchi. No respiratory distress. HEART: Regular rate and rhythm. No murmur ABDOMEN: soft, non-tender. No distention. Bowel sounds present BACK: Left CVAT, does have some paraspinal tenderness to palpation left side EXTREMITIES: Moves all 4 extremities spontaneously. No edema, No cyanosis. PSYCH: Normal affect, normal mood. SKIN: Warm, dry, normal turgor. No rashes or lesions noted. Course - Re-evaluation Re-evalutation: 09/25/18 12:59 Overall well-appearing. Patient with a complex medical history who presents with fairly nebulous symptoms. I have ordered a CT abdomen pelvis as patient's presentation is with nephrolithiasis. 09/25/18 13:01 Serum glucose 566, bicarb is 31 patient is not in DKA. I have ordered 6 units of regular insulin to give subcutaneous. 09/25/18 14:19 CT abdomen negative for any acute process or nephrolithiasis. Repeat serum glucose was 336 after fluids and insulin 6 units. At this time there is no acute process or concerning pathology requiring hospitalization. Very low suspicion for PE not tachycardic or tachypneic, not hypoxic, and his pain pattern is not consistent with previous. It is most likely lower back pain with radiculopathy. Stable for discharge. - Vital Signs Vital signs: Temp Pulse Resp BP Pulse Ox 98.2 F 92 15 145/72 H 94 09/25/18 10:26 09/25/18 10:09/25/18 10:09/25/18 10:09/25/18 10:26 - Laboratory Result Diagrams: 09/25/18 11:07 06/12/19 11:07 Laboratory results interpreted by me: 09/25/18 09/25/18 09/25/18 10:30 10:41 11:07 MCV 99 H MCH 33.5 H Sodium Chloride Carbon Dioxide Glucose POC Glucose 483 H* ALT Alkaline Phosphatase Urine Glucose (UA) >=500 H Urine Ketones TRACE H 09/25/18 09/25/18 11:07 13:16 MCV MCH Sodium 136.3 L Chloride 95 L Carbon Dioxide 31 H Glucose 566 H* POC Glucose 363 H ALT 19 L Alkaline Phosphatase 212 H Urine Glucose (UA) Urine Ketones Discharge - Discharge Clinical Impression: Back pain Qualifiers: Back pain location: low back pain Chronicity: acute Back pain laterality: left Sciatica presence: without sciatica Qualified Code(s): M54.5 - Low back pain Condition: Good Disposition: HOME, SELF-CARE Additional Instructions: You were seen in the emergency department this afternoon for back pain that moved around to your stomach. Work-up did not show anything concerning that would require to stay in the hospital today. We have very low suspicion for pulmonary embolism and CT did not show any kidney stones or any concerning pathology with your organs. Please take Motrin 600 mg every 6 hours for pain and/or Tylenol 1000 mill grams every 6 hours for pain. If you develop acute urinary retention and are unable to pee, numbness in your sit bones, bowel incontinence, high fevers, severe chest pain or acute shortness of breath, or have any other concerning symptoms please immediately return to the emergency department.
[2018-09-25] MEDS ORDERED: LORAZEPAM INJ 2 MG/1 ML VIAL IV ONE (13:06)
--- NOTE | 2018-09-25 13:38 | RADIOLOGY REPORT (SQ) ---
EXAM DESCRIPTION: CT ABD/PELVIS NO ORAL OR IV COMPLETED DATE/TIME: 09/25/2018 1:21 pm REASON FOR STUDY: right flank pain COMPARISON: 05/23/2015 TECHNIQUE: CT scan of the abdomen and pelvis performed without intravenous or oral contrast. Images reviewed with lung, soft tissue, and bone windows. Reconstructed coronal and sagittal MPR images revi ewed. All images stored on PACS. All CT scanners at this facility use dose modulation, iterative reconstruction, and/or weight based d osing when appropriate to reduce radiation dose to as low as reasonably achievable (ALARA). [facility]: Dose Right [facility]: CareDose [facility]: Dose Right [facility]: Teradose 4D [facility]: Smart [facility] RADIATION DOSE: CT Rad equipment meets quality standard of care and radiation dose reduction techniq ues were employed. CTDIvol: 15.6 mGy. DLP: 898 mGy-cm.mGy. LIMITATIONS: None. FINDINGS: LOWER CHEST: No significant findings. No nodules or infiltrates. NON-CONTRASTED LIVER, SPLEEN, ADRENALS: Evaluation limited by lack of IV contrast. No identified sign ificant masses. PANCREAS: No masses. No peripancreatic inflammatory changes. GALLBLADDER: No identified stones by CT criteria. No inflammatory changes to suggest cholecystitis. RIGHT KIDNEY AND URETER: No suspicious masses. Assessment limited by lack of IV contrast. No signif icant calcifications. No hydronephrosis or hydroureter. LEFT KIDNEY AND URETER: No suspicious masses. Assessment limited by lack of IV contrast. No signifi cant calcifications. No hydronephrosis or hydroureter. AORTA AND RETROPERITONEUM: No aneurysm. No retroperitoneal masses or adenopathy. BOWEL AND PERITONEAL CAVITY: No obvious masses or inflammatory changes. No free fluid. APPENDIX: Normal. PELVIS, BLADDER, AND ABDOMINAL WALL:No abnormal masses. No free fluid. Bladder normal. BONES: Lower lumbar degenerative disc disease. OTHER: No other significant finding. IMPRESSION: No acute finding in the abdomen or pelvis. Lower lumbar degenerative disc disease. COMMENT: Quality ID # [id number]: Final reports with documentation of one or more dose reduction techniques (e.g., Automated exposure control, adjustment of the mA and/or kV according to patient size, use of iterative reconstruction technique) TECHNICAL DOCUMENTATION: JOB ID: [id number] [employer] All Rights Reserved Reading location - IP/workstation name: [email or web address]
[2018-09-25] MEDS ORDERED: LIDOCAINE 5% (700 MG) TRANSDERMAL ADH..PATCH TP ONE (14:19)
[2018-09-25] MEDS ORDERED: KETOROLAC TROMETHAMINE INJ/PF 30 MG/1 ML SDV IV ONE (14:19)
== END 2018-09-25 14:32 | disposition home or self-care (01) ==
LOC: ER 10:20
DX: M54.5 Low back pain (principal); R10.9 Unspecified abdominal pain; E11.9 Type 2 diabetes mellitus without complications; F17.200 Nicotine dependence, unspecified, uncomplicated; I10 Essential (primary) hypertension; Z87.442 Personal history of urinary calculi; J45.909 Unspecified asthma, uncomplicated
CPT/HCPCS: 99284; 96361; 96374; 36415; 82553; 82962; 83690; 85025; 80053; 81001; 82803; 71046; 74176; J1885; J1815; J7030

== ENCOUNTER 2018-10-27 11:36 | Emergency (ER) | payer SELFPAY ==
[2018-10-27] MEDS ORDERED: RINGERS SOLUTION,LACTATED 1,000 ML IV ONE (11:50)
--- NOTE | 2018-10-27 11:52 | ER Document Report ---
ED Medical Screen (RME) - General Chief Complaint: High Blood Sugar Stated Complaint: BLOOD SUGAR ISSUES Time Seen by Provider: 10/27/18 11:47 Notes: Patient is a 43-year-old male recently diagnosed with diabetes presents to the emergency department for elevated blood sugar readings. Patient states he is currently [facility]. States he has not started on any oral diabetes meds and he is also not on insulin. Patient states he had a short episode of blurred vision this afternoon which is why he had a friend check his blood sugar. States it read "high". Patient's currently denying blurred vision at this time. Denies chest pain, shortness of breath, nausea, vomiting. GENERAL: Alert, interacts well. No acute distress. LUNGS: Clear to auscultation bilaterally, no wheezes, rales, or rhonchi. No respiratory distress. I have greeted and performed a rapid initial assessment of this patient. A comprehensive ED assessment and evaluation of the patient, analysis of test results and completion of the medical decision making process will be conducted by additional ED providers. I have specifically instructed the patient or family members with the patient to immediately return to any nursing staff should anything change in the patient's condition or with their chief complaint. This medical record was dictated with voice recognizing software. There may be grammatical, syntax errors that are unintended. TRAVEL OUTSIDE OF THE [place] IN LAST 30 DAYS: No - Related Data Allergies/Adverse Reactions: acetaminophen [From Percocet] Allergy (Verified 10/27/18 11:50) Vomiting Penicillins Adverse Reaction (Severe, Verified 10/27/18 11:37) Unknown reaction oxycodone Adverse Reaction (Verified 10/27/18 11:37) Past Medical History - Past Medical History Cardiac Medical History: Reports: Hx Heart Attack - x 2, Hx Hypercholesterolemia, Hx Hypertension Pulmonary Medical History: Reports: Hx Asthma, Hx Sleep Apnea Denies: Hx Pneumonia, Hx Tuberculosis Neurological Medical History: Denies: Hx Seizures Endocrine Medical History: Reports: Hx Diabetes Mellitus Type 2 Renal/ Medical History: Reports: Hx Kidney Stones. Denies: Hx Peritoneal Dial ysis Psychiatric Medical History: Denies: Hx Depression Traumatic Medical History: Reports: Hx Fractures - left leg, 2 ribs, skull Past Surgical History: Denies: Hx Pacemaker - Immunizations Hx Diphtheria, Pertussis, Tetanus Vaccination: No - unknown History of Influenza Vaccine for 01/2017 - 06/2017 Season: No Physical Exam - Vital signs Vitals: Temp Pulse Resp BP Pulse Ox 98.2 F 89 16 133/69 H 95 10/27/18 11:40 10/27/18 11:40 10/27/18 11:40 10/27/18 11:40 10/27/18 11:40 Course - Vital Signs Vital signs: Temp Pulse Resp BP Pulse Ox 98.2 F 89 16 133/69 H 95 10/27/18 11:40 10/27/18 11:40 10/27/18 11:40 10/27/18 11:40 10/27/18 11:40
[2018-10-27 12:42] LABS: ABSOLUTE EOSINOPHILS # (AUTO) 0.3 10^3/uL (0.0-0.6); ABSOLUTE LYMPHOCYTES (AUTO) 2.9 10^3/uL (0.5-4.7); ABSOLUTE MONOCYTES (AUTO) 0.7 10^3/uL (0.1-1.4); ABSOLUTE NEUT (AUTO) 5.1 10^3/uL (1.7-8.2); BASOPHILS % (AUTO) 0.5 % (0-2); EOSINOPHILS % (AUTO) 3.8 % (0-6); HEMATOCRIT 47.3 % (37.9-51.0); HEMOGLOBIN 16.1 g/dL (13.5-17.0); MEAN CORPUSCULAR HEMOGLOBIN 33.3 pg (27.0-33.4); MEAN CORPUSCULAR VOLUME 98 fl (80-97); MONOCYTES % (AUTO) 7.5 % (3-13); PLATELET COUNT 243 10^3/uL (150-450); RED BLOOD COUNT 4.82 10^6/uL (4.35-5.55); RED CELL DISTRIBUTION WIDTH 13.7 % (11.5-14.0); SEGMENTED NEUTROPHILS % (AUTO) 56.2 % (42-78); TOTAL CELLS COUNTED % (AUTO) 100 %; WHITE BLOOD COUNT 9.1 10^3/uL (4.0-10.5)
[2018-10-27 12:46] LABS: VENOUS BLOOD BASE EXCESS 0.5 mmol/L; VENOUS BLOOD HCO3 25.7 mmol/L (20-32); VENOUS BLOOD PH 7.39 (7.30-7.42)
[2018-10-27 12:47] LABS: APPEARANCE,URINE CLEAR; BILIRUBIN,URINE NEGATIVE (NEGATIVE); COLOR,URINE STRAW; GLUCOSE, URINE >=500 mg/dL (NEGATIVE); KETONES,URINE NEGATIVE (NEGATIVE); LEUKOCYTE ESTERASE,URINE NEGATIVE (NEGATIVE); NITRITE,URINE NEGATIVE (NEGATIVE); PROTEIN,URINE NEGATIVE (NEGATIVE); URINE SPECIFIC GRAVITY 1.027; UROBILINOGEN,URINE NEGATIVE mg/dL (<2.0)
[2018-10-27 13:01] LABS: ALANINE AMINOTRANSFERASE 16 U/L (21-72); ALBUMIN 4.3 g/dL (3.5-5.0); ALKALINE PHOSPHATASE 138 U/L (38-126); ANION GAP 7 (5-19); ASPARTATE AMINO TRANSFERASE 22 U/L (17-59); BILIRUBIN,DIRECT 0.3 mg/dL (0.0-0.4); BILIRUBIN,TOTAL 0.5 mg/dL (0.2-1.3); BLOOD UREA NITROGEN 14 mg/dL (7-20); CALCIUM 9.6 mg/dL (8.4-10.2); CARBON DIOXIDE 28 mmol/L (22-30); CHLORIDE 100 mmol/L (98-107); GLUCOSE 319 mg/dL (75-110); POTASSIUM 4.5 mmol/L (3.6-5.0); SODIUM 134.6 mmol/L (137-145); TOTAL PROTEIN 8.1 g/dL (6.3-8.2)
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
[2018-10-27 14:12] VITALS: BP 135/94
--- NOTE | 2018-10-27 19:04 | EKG REPORT ---
SEVERITY:- NORMAL ECG - SINUS RHYTHM : Confirmed by: Chelle Sullivan MD 27-Oct-2018 19:03:52
== END 2018-10-27 14:19 | disposition home or self-care (01) ==
LOC: ER 11:36
DX: E11.65 Type 2 diabetes mellitus with hyperglycemia (principal); F17.200 Nicotine dependence, unspecified, uncomplicated
CPT/HCPCS: 93005; 36415; 82962; 85025; 80053; 81001; 82803; 93010; J7120; 96360; 99283

== ENCOUNTER 2018-10-28 08:49 | Emergency (ER) | payer SELFPAY ==
[2018-10-28 09:01] VITALS: BP 146/86
[2018-10-28] MEDS ORDERED: TETRACAINE HCL 0.5% OPH SOLN 4 ML OS ONE (09:12)
--- NOTE | 2018-10-28 09:13 | ER Document Report ---
ED Medical Screen (RME) - General Chief Complaint: Vision Problem Stated Complaint: VISION PROBLEMS Time Seen by Provider: 10/28/18 09:09 Primary Care Provider: JHON PHILLIPS MD [ACTIVE STAFF] - Follow up tomorrow (eye doctor ) Mode of Arrival: Ambulatory Information source: Patient Notes: Patient presents today with complaints of left eye irritation. Reports his eye was irritated yesterday but he thought it was his sugar so he was evaluated for his high blood sugar yesterday. Reports he woke up this morning and is even more irritated increased irritation with light. Feels like it is going to roll back in the back of his head. Does not wear contacts. Denies injury to the eye. I have greeted and performed a rapid initial assessment of this patient. A comprehensive ED assessment and evaluation of the patient, analysis of test results and completion of the medical decision making process will be conducted by additional ED providers. Dictation of this chart was performed using voice recognition software; therefore, there may be some unintended grammatical errors. TRAVEL OUTSIDE OF THE [place] IN LAST 30 DAYS: No - Related Data Allergies/Adverse Reactions: acetaminophen [From Percocet] Allergy (Verified 10/28/18 08:51) Vomiting Penicillins Adverse Reaction (Severe, Verified 10/28/18 08:51) Unknown reaction oxycodone Adverse Reaction (Verified 10/28/18 08:51) Past Medical History - Past Medical History Cardiac Medical History: Reports: Hx Heart Attack - x 2, Hx Hypercholesterolemia, Hx Hypertension Pulmonary Medical History: Reports: Hx Asthma, Hx Sleep Apnea Denies: Hx Pneumonia, Hx Tuberculosis Neurological Medical History: Denies: Hx Seizures Endocrine Medical History: Reports: Hx Diabetes Mellitus Type 2 Renal/ Medical History: Reports: Hx Kidney Stones. Denies: Hx Peritoneal Dialysis Psychiatric Medical History: Denies: Hx Depression Traumatic Medical History: Reports: Hx Fractures - left leg, 2 ribs, skull Past Surgical History: Reports: Hx Orthopedic Surgery - lower back, left leg. Denies: Hx Pacemaker - Immunizations Hx Diphtheria, Pertussis, Tetanus Vaccination: No - unknown History of Influenza Vaccine for 01/2017 - 06/2017 Season: No Physical Exam - Vital signs Vitals: Temp Pulse Resp BP Pulse Ox 98.0 F 87 16 146/86 H 95 10/28/18 09:00 10/28/18 09:00 10/28/18 09:00 10/28/18 09:00 10/28/18 09:00 Course - Vital Signs Vital signs: Temp Pulse Resp BP Pulse Ox 98.0 F 87 16 146/86 H 95 10/28/18 09:00 10/28/18 09:00 10/28/18 09:00 10/28/18 09:00 10/28/18 09:00 Doctor's Discharge - Discharge Clinical Impression: Corneal abrasion Condition: Stable Disposition: HOME, SELF-CARE Instructions: Corneal Abrasion ([facility]) Additional Instructions: Please complete the entire course of eyedrops, for 7 days, to your left eye, you can use the anti-inflammatory eyedrop as well for the next few days to help with pain. Prescriptions: Ciprofloxacin HCl [Ciloxan 0.3% Oph Soln 2.5 ml] 1 drop OS QID 7 Days #5 ml Ketorolac Tromethamine [Acular] 1 drop OS Q6H PRN #5 ml PRN Reason: eye pain Referrals: JHON PHILLIPS MD [ACTIVE STAFF] - Follow up tomorrow (eye doctor )
[2018-10-28] MEDS ORDERED: TRAMADOL HCL 50 MG TABLET PO ONE (10:02)
--- NOTE | 2018-10-28 10:06 | ER Document Report ---
ED General - General Chief Complaint: Vision Problem Stated Complaint: VISION PROBLEMS Time Seen by Provider: 10/28/18 09:09 Primary Care Provider: JHON PHILLIPS MD [ACTIVE STAFF] - Follow up tomorrow (eye doctor ) Mode of Arrival: Ambulatory Notes: Patient is a 43-year-old male that presents to the emergency department for chief complaint of left eye pain. Patient states he is having pain in his left eye, and photophobia, that started last night. Yesterday he was seen in the emergency department for having some blurred vision but at that time his blood glucose was elevated, the pain started last night. He currently rates his pain as a 10 out of 10 describes it is worse with the light on. Denies pain with extraocular eye movement. Denies loss of vision. Patient denies use of glasses or contact lenses. He is not aware of anything getting in his eye but he cannot be entirely sure. He denies any fevers, chills, night sweats, chest pain, shortness of breath, difficulty breathing, or other symptoms at this time. Past Medical History: Diabetes mellitus, hypertension Past Surgical History: Denies surgical history Social History: Admits to smoking cigarettes, denies alcohol or drug use. Family History: Reviewed and noncontributory for presenting illness Allergies: Reviewed, see documented allergy list. REVIEW OF SYSTEMS: Other than noted above, the 12 point review of systems was reviewed with the patient and were negative, all pertinent findings are included in the HPI. PHYSICAL EXAMINATION: Vital signs reviewed, nursing noted reviewed. GENERAL: Well-appearing, well-nourished but does appear uncomfortable on exam HEAD: Atraumatic, normocephalic. EYES: The left eye is noted to have conjunctival injection, EOMI, PERRLA, under fluorescein dye exam, patient is noted to have what appears to be a circular corneal abrasion at the 12 o'clock position, superior to the pupil. ENT: Moist mucous membranes. NECK: Normal range of motion, supple without lymphadenopathy LUNGS: Breath sounds clear to auscultation bilaterally and equal. No wheezes rales or rhonchi. HEART: Regular rate and rhythm without murmurs EXTREMITIES: Nontender, good range of motion, no pitting or edema. NEUROLOGICAL: No focal neurological deficits. Moves all extremities spontaneously Motor and sensory grossly intact on exam. PSYCH: Normal mood, normal affect. SKIN: Warm, Dry, normal turgor, no rashes or lesions noted on exposed skin TRAVEL OUTSIDE OF THE [place] IN LAST 30 DAYS: No - Related Data Allergies/Adverse Reactions: acetaminophen [From Percocet] Allergy (Verified 10/28/18 08:51) Vomiting Penicillins Adverse Reaction (Severe, Verified 10/28/18 08:51) Unknown reaction oxycodone Adverse Reaction (Verified 10/28/18 08:51) Past Medical History - General Information source: Patient - Social History Smoking Status: Current Every Day Smoker Chew tobacco use (# tins/day): No Frequency of alcohol use: None Drug Abuse: None Family History: Reviewed & Not Pertinent Patient has suicidal ideation: No Patient has homicidal ideation: No - Past Medical History Cardiac Medical History: Reports: Hx Heart Attack - x 2, Hx Hypercholesterolemia, Hx Hypertension Pulmonary Medical History: Reports: Hx Asthma, Hx Sleep Apnea Denies: Hx Pneumonia, Hx Tuberculosis Neurological Medical History: Denies: Hx Seizures Endocrine Medical History: Reports: Hx Diabetes Mellitus Type 2 Renal/ Medical History: Reports: Hx Kidney Stones. Denies: Hx Peritoneal Dialysis Psychiatric Medical History: Denies: Hx Depression Traumatic Medical History: Reports: Hx Fractures - left leg, 2 ribs, skull Past Surgical History: Reports: Hx Orthopedic Surgery - lower back, left leg. Denies: Hx Pacemaker - Immunizations Hx Diphtheria, Pertussis, Tetanus Vaccination: No - unknown Physical Exam - Vital signs Vitals: Temp Pulse Resp BP Pulse Ox 98.0 F 87 16 146/86 H 95 10/28/18 09:00 10/28/18 09:00 10/28/18 09:00 10/28/18 09:00 10/28/18 09:00 Course - Re-evaluation Re-evalutation: Patient seen and examined vital signs reviewed. Patient was evaluated and treated as appropriate for the patient's presenting symptoms and complaint, with consideration of any critical or life threatening conditions that may be associated with their obtained history and exam as noted above. Patient was treated with tetracaine eyedrops, and given a dose of tramadol for pain The patient was re-evaluated and was stable, exam was most consistent with corneal abrasion, will prescribe the patient ciprofloxacin eyedrops as well as ketorolac eyedrops, and advised follow-up with ophthalmology which the patient was agreeable to. Evaluation was most consistent with corneal abrasion of the left eye. Plan of care was discussed with the patient at this point, after careful consideration I feel that that patient can be discharged from the emergency department, the patient was educated treatments and reasons to return to the emergency department based on their presumed diagnosis as noted above, they were advised to followup with a primary care physician in 2-3 days. Patient was agreeable to plan of care. *Note is created using voice recognition software and may contain spelling, syntax or grammatical errors. - Vital Signs Vital signs: Temp Pulse Resp BP Pulse Ox 98.0 F 87 16 146/86 H 95 10/28/18 09:00 10/28/18 09:00 10/28/18 09:00 10/28/18 09:00 10/28/18 09:00 Discharge - Discharge Clinical Impression: Corneal abrasion Qualifiers: Encounter type: initial encounter Laterality: left Qualified Code(s): S05.02XA - Injury of conjunctiva and corneal abrasion without foreign body, left eye, initial encounter Condition: Stable Disposition: HOME, SELF-CARE Instructions: Corneal Abrasion ([facility]) Additional Instructions: Please complete the entire course of eyedrops, for 7 days, to your left eye, you can use the anti-inflammatory eyedrop as well for the next few days to help with pain. Prescriptions: RX: Ciprofloxacin HCl [Ciloxan 0.3% Oph Soln 2.5 ml] 1 drop OS QID 7 Days #5 ml RX: Ketorolac Tromethamine [Acular] 1 drop OS Q6H PRN #5 ml PRN Reason: eye pain Referrals: JHON PHILLIPS MD [ACTIVE STAFF] - Follow up tomorrow (eye doctor )
== END 2018-10-28 10:38 | disposition home or self-care (01) ==
LOC: ER 08:49
DX: S05.02XA Injury of conjunctiva and corneal abrasion without foreign body, left eye, initial encounter (principal); H57.12 Ocular pain, left eye; E78.00 Pure hypercholesterolemia, unspecified; I10 Essential (primary) hypertension; E11.9 Type 2 diabetes mellitus without complications; I25.2 Old myocardial infarction; Z87.442 Personal history of urinary calculi; X58.XXXA Exposure to other specified factors, initial encounter
CPT/HCPCS: 99283; J3490

== ENCOUNTER 2019-03-29 16:33 | Emergency (ER) | payer SELFPAY ==
[2019-03-29] MEDS ORDERED: ASPIRIN 81 MG TABLET, CHEWABLE PO ONE (16:55)
--- NOTE | 2019-03-29 16:59 | ER Document Report ---
ED Medical Screen (RME) - General Stated Complaint: CHEST PAIN Time Seen by Provider: 03/29/19 16:49 Notes: Patient is a 44-year-old male who presents to the emergency department with a chief complaint of chest pain. States the pain is in the left side of his chest and radiates to the left arm. His pain started about 1630 this afternoon. States that he thought it was heartburn at first, but did not get the heartburn feeling. Patient has history of an [place] x2 and pulmonary emboli. He is a current everyday smoker. He does not take any medications. Patient states that he was told he was diabetic, but he does not take medications for it. Exam: Sinus tachycardia. S1, S2. I have greeted and performed a rapid initial assessment of this patient. A comprehensive ED assessment and evaluation of the patient, analysis of test results and completion of medical decision making process will be conducted by an additional ED providers. TRAVEL OUTSIDE OF THE [place] IN LAST 30 DAYS: No - Related Data Allergies/Adverse Reactions: acetaminophen [From Percocet] Allergy (Verified 03/29/19 16:50) Vomiting Penicillins Adverse Reaction (Severe, Verified 03/29/19 16:50) Unknown reaction oxycodone Adverse Reaction (Verified 03/29/19 16:50) Past Medical History - Past Medical History Cardiac Medical History: Reports: Hx Heart Attack - x 2, Hx Hypercholesterolemia, Hx Hypertension Pulmonary Medical History: Reports: Hx Asthma, Hx Sleep Apnea Denies: Hx Pneumonia, Hx Tuberculosis Neurological Medical History: Denies: Hx Seizures Endocrine Medical History: Reports: Hx Diabetes Mellitus Type 2 Renal/ Medical History: Reports: Hx Kidney Stones. Denies: Hx Peritoneal Dialysis Psychiatric Medical History: Denies: Hx Depression Traumatic Medical History: Reports: Hx Fractures - left leg, 2 ribs, skull Past Surgical History: Reports: Hx Orthopedic Surgery - lower back, left leg. Denies: Hx Pacemaker - Immunizations Hx Diphtheria, Pertussis, Tetanus Vaccination: No - unknown
[2019-03-29 17:29] LABS: ABSOLUTE EOSINOPHILS # (AUTO) 0.3 10^3/uL (0.0-0.6); ABSOLUTE NEUT (AUTO) 4.7 10^3/uL (1.7-8.2); BASOPHILS % (AUTO) 0.5 % (0-2); RED CELL DISTRIBUTION WIDTH 13.5 % (11.5-14.0); TOTAL CELLS COUNTED % (AUTO) 100 %
[2019-03-29 17:40] LABS: ABSOLUTE MONOCYTES (AUTO) 0.7 10^3/uL (0.1-1.4); EOSINOPHILS % (AUTO) 3.1 % (0-6); HEMATOCRIT 49.6 % (37.9-51.0); HEMOGLOBIN 17.1 g/dL (13.5-17.0); LYMPHOCYTES % (AUTO) 34.7 % (13-45); MEAN CORPUSCULAR HEMOGLOBIN 33.5 pg (27.0-33.4); MEAN CORPUSCULAR HGB CONC 34.5 g/dL (32.0-36.0); MEAN CORPUSCULAR VOLUME 97 fl (80-97); MONOCYTES % (AUTO) 8.3 % (3-13); PLATELET COUNT 223 10^3/uL (150-450); SEGMENTED NEUTROPHILS % (AUTO) 53.4 % (42-78); WHITE BLOOD COUNT 8.8 10^3/uL (4.0-10.5)
[2019-03-29 17:48] LABS: ALBUMIN 3.4 g/dL (3.5-5.0); ALKALINE PHOSPHATASE 111 U/L (38-126); ANION GAP 10 (5-19); ASPARTATE AMINO TRANSFERASE 20 U/L (17-59); BILIRUBIN,DIRECT 0.1 mg/dL (0.0-0.4); BILIRUBIN,TOTAL 0.3 mg/dL (0.2-1.3); BLOOD UREA NITROGEN 15 mg/dL (7-20); CARBON DIOXIDE 27 mmol/L (22-30); CHLORIDE 100 mmol/L (98-107); CREATINE KINASE 62 U/L (55-170); GLUCOSE 295 mg/dL (75-110); POTASSIUM 4.1 mmol/L (3.6-5.0); TOTAL PROTEIN 6.3 g/dL (6.3-8.2)
--- NOTE | 2019-03-29 18:04 | EKG REPORT ---
SEVERITY:- ABNORMAL ECG - SINUS RHYTHM PROBABLE LEFT ATRIAL ABNORMALITY ABNRM R PROG, CONSIDER ASMI OR LEAD PLACEMENT : Confirmed by: Cedric Bagley MD 29-Mar-2019 18:03:16
[2019-03-29 19:29] VITALS: BP 118/67
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
== END 2019-03-29 21:05 | disposition left against medical advice (07) ==
LOC: ER 16:33
DX: R07.9 Chest pain, unspecified (principal); M79.602 Pain in left arm; I10 Essential (primary) hypertension; I25.2 Old myocardial infarction; J45.909 Unspecified asthma, uncomplicated; E11.9 Type 2 diabetes mellitus without complications; F17.200 Nicotine dependence, unspecified, uncomplicated; Z86.711 Personal history of pulmonary embolism; Z88.8 Allergy status to other drugs, medicaments and biological substances; Z53.20 Procedure and treatment not carried out because of patient's decision for unspecified reasons
CPT/HCPCS: 36415; 80053; 82550; 84484; 85025; 85379; 93005; 93010; 99281

== ENCOUNTER 2019-03-29 22:37 | Emergency (ER) | payer SELFPAY ==
--- NOTE | 2019-03-30 00:09 | EKG REPORT ---
SEVERITY:- ABNORMAL ECG - SINUS RHYTHM LEFT ATRIAL ABNORMALITY BORDERLINE R WAVE PROGRESSION, ANTERIOR LEADS : Confirmed by: Cedric Bagley MD 30-Mar-2019 00:08:56
[2019-03-30] MEDS ORDERED: METOPROLOL TARTRATE PF/INJ 5 MG/5 ML SDV IV ONE (01:31)
[2019-03-30] MEDS ORDERED: ENOXAPARIN SODIUM INJ 100 MG/1 ML DISP.SYRIN SUBCUT SCH (01:45)
--- NOTE | 2019-03-30 01:53 | ER Document Report ---
Entered by VALERIA MARVIN SCRIBE 03/30/19 0114 Acting as scribe for:SILVANO SAUNDERS IV, MD ED Cardiac - General Chief Complaint: Abnormal Lab Results Stated Complaint: PT CALLED BACK IN,CHEST PAIN Time Seen by Provider: 03/30/19 01:02 Mode of Arrival: Ambulatory Information source: Patient Notes: This 44-year-old male patient with a history of [place] x2 (both treated in [place]) presents to the emergency department today with complaints of chest pain that radiated to his back and down his left arm. Patient is an insulin- dependent diabetic who is noncompliant, stating that he does not take the insulin anymore because it is "too much of a hassle". Patient smokes 1-2 packs of cigarettes per day. Patient reports that "his whole family has heart problems" .patient states him and his significant other happened to be on the way to this hospital this morning for her when his chest pain began. Patient states as he drove here to the hospital the pain became worse. Patient states initially he thought it could have been heartburn but "once it radiated I knew it was not that". Patient was initially seen here for this earlier this afternoon, was seen by the [facility] provider and orders were put in. Patient was given aspirin. When the patient got a room assignment, he was nowhere to be found, eloped. According to nursing notes, when his troponin came back they called the next of kin in the chart and asked him to come back to the emergency department which is what he has done. TRAVEL OUTSIDE OF THE [place] IN LAST 30 DAYS: No - Related Data Allergies/Adverse Reactions: acetaminophen [From Percocet] Allergy (Verified 03/29/19 16:50) Vomiting Penicillins Adverse Reaction (Severe, Verified 03/29/19 16:50) Unknown reaction oxycodone Adverse Reaction (Verified 03/29/19 16:50) Past Medical History - General Information source: Patient - Social History Smoking Status: Current Every Day Smoker Cigarette use (# per day): Yes Frequency of alcohol use: None Drug Abuse: None Lives with: Family Family History: CAD, COPD, DM, Hyperlipidemia, Hypertension Patient has suicidal ideation: No Patient has homicidal ideation: No - Past Medical History Cardiac Medical History: Reports: Hx Heart Attack - x 2, both treated in [place], Hx Hypercholesterolemia, Hx Hypertension Pulmonary Medical History: Reports: Hx Asthma, Hx Sleep Apnea Endocrine Medical History: Reports: Hx Diabetes Mellitus Type 2 - Prescribed insulin, states he stopped taking it because it is a hassle Renal/ Medical History: Reports: Hx Kidney Stones Traumatic Medical History: Reports: Hx Fractures - left leg, 2 ribs, skull Past Surgical History: Reports: Hx Orthopedic Surgery - lower back, left leg - Immunizations Hx Diphtheria, Pertussis, Tetanus Vaccination: No - unknown Review of Systems - Review of Systems Constitutional: No symptoms reported EENT: No symptoms reported Cardiovascular: See HPI, Chest pain - None currently Respiratory: No symptoms reported Gastrointestinal: No symptoms reported Genitourinary: No symptoms reported Male Genitourinary: No symptoms reported Musculoskeletal: No symptoms reported Skin: No symptoms reported Hematologic/Lymphatic: No symptoms reported Neurological/Psychological: No symptoms reported -: Yes All other systems reviewed and negative Physical Exam - Vital signs Vitals: Temp Pulse Resp BP Pulse Ox 98 F 94 16 133/63 H 95 03/29/19 22:51 03/29/19 22:51 03/29/19 22:51 03/29/19 22:51 03/29/19 22:51 - Notes Notes: Physical Exam: General: Alert, appears well. HEENT: Normocephalic. Atraumatic. PERRL. Extraocular movements intact. Oropharynx clear. Neck: Supple. Non-tender. Respiratory: No respiratory distress. Clear and equal breath sounds bilaterally. Cardiovascular: Regular rate and rhythm. Abdominal: Normal Inspection. Non-tender. No distension. Normal Bowel Sounds. Back: No gross abnormalities. Extremities: Moves all four extremities. Upper extremities: Normal inspection. Normal ROM. Lower extremities: Normal inspection. No edema. Normal ROM. Neurological: Normal cognition. AAOx4. Normal speech. Psychological: Normal affect. Normal Mood. Skin: Warm. Dry. Normal color. Course - Re-evaluation Re-evalutation: 03/30/19 01:21 Patient states he is chest pain-free at this time 03/30/19 01:50 Patient states he wants to be discharged. Patient was informed of the risks of leaving AGAINST MEDICAL ADVICE which include but are not limited to permanent disability, worsening myocardial infarction, permanent loss of current quality of life, cardiac arrest, . Patient expressed understanding of the risks he is taking by leaving AGAINST MEDICAL ADVICE. Patient was encouraged to return to the ED at any time by calling 911 if he decides to seek further treatment. - Vital Signs Vital signs: Temp Pulse Resp BP Pulse Ox 98 F 94 16 133/63 H 95 03/29/19 22:51 03/29/19 22:51 03/29/19 22:51 03/29/19 22:51 03/29/19 22:51 - Laboratory Laboratory results interpreted by me: Troponin reviewed by this MD - Diagnostic Test Radiology reviewed: Reports reviewed - EKG Interpretation by Me Additional EKG results interpreted by me: 03/30/19 01:21 EKG performed at 2303 hrs. on 03/29/2019 was interpreted by this MD. Findings: Normal sinus rhythm, rate 85, normal axis, P waves preceding QRS complexes, QRS complexes. Narrow, ST segments are nonspecific. Impression normal sinus rhythm with nonspecific ST segments. Discharge - Discharge Clinical Impression: NSTEMI (non-ST elevated myocardial infarction) Disposition: AGAINST MEDICAL ADVICE Additional Instructions: Return to the Emergency Department without delay if any worse. I personally performed the services described in the documentation, reviewed and edited the documentation which was dictated to the scribe in my presence, and it accurately records my words and actions.
[2019-03-30 02:24] VITALS: BP 103/69
--- NOTE | 2019-03-30 02:27 | RADIOLOGY REPORT (SQ) ---
EXAM DESCRIPTION: XR CHEST 1 VIEW COMPLETED DATE/TME: 03/30/2019 01:18 CLINICAL HISTORY: chest pain COMPARISON: 09/25/2018 FINDINGS: Single frontal view of the chest. Cardiomediastinal silhouette: Normal size and contour. Lungs: No consolidation, pneumothorax, or pleural effusion. Bones: No acute osseous abnormality. Leads overlie the chest. Upper abdomen: No abnormality identified. IMPRESSION: 1. No acute pulmonary process identified.
== END 2019-03-30 02:31 | disposition left against medical advice (07) ==
LOC: ER 22:37
DX: I21.4 Non-ST elevation (NSTEMI) myocardial infarction (principal); I10 Essential (primary) hypertension; I25.2 Old myocardial infarction; E11.9 Type 2 diabetes mellitus without complications; T38.3X6A Underdosing of insulin and oral hypoglycemic [antidiabetic] drugs, initial encounter; Z91.128 Patient's intentional underdosing of medication regimen for other reason; Z91.14 Patient's other noncompliance with medication regimen; J45.909 Unspecified asthma, uncomplicated; F17.210 Nicotine dependence, cigarettes, uncomplicated; Z88.8 Allergy status to other drugs, medicaments and biological substances; Z82.49 Family history of ischemic heart disease and other diseases of the circulatory system; Z53.20 Procedure and treatment not carried out because of patient's decision for unspecified reasons
CPT/HCPCS: 36415; 71045; 84484; 93005; 93010; 99284

== ENCOUNTER 2019-04-09 09:12 | Emergency (ER) | payer SELFPAY ==
--- NOTE | 2019-04-09 09:31 | ER Document Report ---
ED Medical Screen (RME) - General Chief Complaint: Chest Pain Stated Complaint: CHEST PAIN Time Seen by Provider: 04/09/19 09:27 Mode of Arrival: Ambulatory Information source: Patient Notes: 44-year-old male with history of [place] presents emergency department with reports that he has had multiple episodes of chest pain midsternal that radiates across his chest down his left arm in the past few days. Patient was evaluated here on March 29 told he was having a heart attack but he left AMA. Patient reports he is never had a cardiac cath. Respiratory rate even unlabored. I have greeted and performed a rapid initial assessment of this patient. A comprehensive ED assessment and evaluation of the patient, analysis of test results and completion of the medical decision making process will be conducted by additional ED providers. TRAVEL OUTSIDE OF THE [place] IN LAST 30 DAYS: No - Related Data Allergies/Adverse Reactions: acetaminophen [From Percocet] Allergy (Verified 03/29/19 16:50) Vomiting Penicillins Adverse Reaction (Severe, Verified 03/29/19 16:50) Unknown reaction oxycodone Adverse Reaction (Verified 03/29/19 16:50) Past Medical History - Past Medical History Cardiac Medical History: Reports: Hx Heart Attack - x 2, both treated in [place], Hx Hypercholesterolemia, Hx Hypertension Pulmonary Medical History: Reports: Hx Asthma, Hx Sleep Apnea Denies: Hx Pneumonia, Hx Tuberculosis Neurological Medical History: Denies: Hx Seizures Endocrine Medical History: Reports: Hx Diabetes Mellitus Type 2 - Prescribed insulin, states he stopped taking it because it is a hassle Renal/ Medical History: Reports: Hx Kidney Stones. Denies: Hx Peritoneal Dialysis Psychiatric Medical History: Denies: Hx Depression Traumatic Medical History: Reports: Hx Fractures - left leg, 2 ribs, skull Past Surgical History: Reports: Hx Orthopedic Surgery - lower back, left leg. Denies: Hx Pacemaker - Immunizations Hx Diphtheria, Pertussis, Tetanus Vaccination: No - unknown Physical Exam - Vital signs Vitals: Temp Pulse Resp BP Pulse Ox 97.6 F 79 20 151/75 H 97 04/09/19 09:21 04/09/19 09:21 04/09/19 09:21 04/09/19 09:21 04/09/19 09:21 Course - Vital Signs Vital signs: Temp Pulse Resp BP Pulse Ox 97.6 F 79 20 151/75 H 97 04/09/19 09:21 04/09/19 09:21 04/09/19 09:21 04/09/19 09:21 04/09/19 09:21
--- NOTE | 2019-04-09 10:28 | RADIOLOGY REPORT (SQ) ---
EXAM DESCRIPTION: CHEST 2 VIEWS COMPLETED DATE/TIME: 04/09/2019 9:50 am REASON FOR STUDY: cp COMPARISON: 03/30/2019 TECHNIQUE: Frontal and lateral radiographic views of the chest acquired. NUMBER OF VIEWS: Two view. LIMITATIONS: None. FINDINGS: LUNGS AND PLEURA: No opacities, masses or pneumothorax. No pleural effusion. MEDIASTINUM AND HILAR STRUCTURES: No masses or contour abnormalities. HEART AND VASCULAR STRUCTURES: Heart normal size. No evidence for failure. BONES: No acute findings. HARDWARE: None in the chest. OTHER: No other significant finding. IMPRESSION: NO SIGNIFICANT RADIOGRAPHIC FINDING IN THE CHEST. TECHNICAL DOCUMENTATION: JOB ID: [id number] [employer] All Rights Reserved Reading location - IP/workstation name: [email or web address]
[2019-04-09 10:55] LABS: ABSOLUTE EOSINOPHILS # (AUTO) 0.3 10^3/uL (0.0-0.6); ABSOLUTE MONOCYTES (AUTO) 0.6 10^3/uL (0.1-1.4); ABSOLUTE NEUT (AUTO) 3.2 10^3/uL (1.7-8.2); BASOPHILS % (AUTO) 0.4 % (0-2); EOSINOPHILS % (AUTO) 4.1 % (0-6); HEMATOCRIT 45.3 % (37.9-51.0); HEMOGLOBIN 15.9 g/dL (13.5-17.0); LYMPHOCYTES % (AUTO) 42.5 % (13-45); MEAN CORPUSCULAR HGB CONC 35.1 g/dL (32.0-36.0); MEAN CORPUSCULAR VOLUME 97 fl (80-97); MONOCYTES % (AUTO) 8.4 % (3-13); PLATELET COUNT 215 10^3/uL (150-450); RED BLOOD COUNT 4.68 10^6/uL (4.35-5.55); RED CELL DISTRIBUTION WIDTH 13.4 % (11.5-14.0); SEGMENTED NEUTROPHILS % (AUTO) 44.6 % (42-78); TOTAL CELLS COUNTED % (AUTO) 100 %; WHITE BLOOD COUNT 7.2 10^3/uL (4.0-10.5)
[2019-04-09 11:10] LABS: ALBUMIN 3.7 g/dL (3.5-5.0); ALKALINE PHOSPHATASE 116 U/L (38-126); ANION GAP 7 (5-19); ASPARTATE AMINO TRANSFERASE 20 U/L (17-59); BILIRUBIN,DIRECT 0.1 mg/dL (0.0-0.4); BILIRUBIN,TOTAL 0.3 mg/dL (0.2-1.3); BLOOD UREA NITROGEN 14 mg/dL (7-20); CALCIUM 9.5 mg/dL (8.4-10.2); CARBON DIOXIDE 27 mmol/L (22-30); CHLORIDE 101 mmol/L (98-107); CREATINE KINASE 53 U/L (55-170); GLUCOSE 268 mg/dL (75-110); POTASSIUM 4.3 mmol/L (3.6-5.0); TOTAL PROTEIN 6.8 g/dL (6.3-8.2)
[2019-04-09 11:23] LABS: CREATINE KINASE MB 1.54 ng/mL (<4.55); TROPONIN I 0.025 ng/mL
[2019-04-09] MEDS ORDERED: NITROGLYCERIN 2% OINTMENT 1 GM PACKET TP ONE (13:53)
[2019-04-09 14:08] LABS: INTERNATIONAL RATION (INR) 0.86; PROTHROMBIN TIME 11.7 SEC (11.4-15.4)
--- NOTE | 2019-04-09 15:51 | ER Document Report ---
ED Cardiac - General Chief Complaint: Chest Pain Stated Complaint: CHEST PAIN Time Seen by Provider: 04/09/19 09:27 Mode of Arrival: Ambulatory Information source: Patient Notes: Patient complains of left-sided chest pain dull in character that started this morning at rest. Patient's cardiac risk factors include smoking and diabetes. He was last seen here approximately 2 weeks ago and at that time was diagnosed with a heart attack, with elevated troponin. He declined admission or transfer at that time because he had some personal matters to settle. He says he has completed those matters and is willing to be treated at this time. He took 3 aspirin this morning. He also has history of blood clots in the lung. His only blood thinner is aspirin which she has been on for the last 2 weeks after being seen here. No diaphoresis. No radiation of the pain. No abdominal pain or nausea. No rashes. No other complaints. No dyspnea. Chest pain lasts between 5 and 20 minutes. TRAVEL OUTSIDE OF THE [place] IN LAST 30 DAYS: No - Related Data Allergies/Adverse Reactions: acetaminophen [From Percocet] Allergy (Verified 03/29/19 16:50) Vomiting Penicillins Adverse Reaction (Severe, Verified 03/29/19 16:50) Unknown reaction oxycodone Adverse Reaction (Verified 03/29/19 16:50) Past Medical History - General Information source: Patient - Social History Smoking Status: Current Every Day Smoker Cigarette use (# per day): No Chew tobacco use (# tins/day): No Frequency of alcohol use: None Drug Abuse: None Family History: CAD, COPD, DM, Hyperlipidemia, Hypertension Patient has suicidal ideation: No Patient has homicidal ideation: No - Past Medical History Cardiac Medical History: Reports: Hx Heart Attack - x 2, both treated in [place], Hx Hypercholesterolemia, Hx Hypertension Pulmonary Medical History: Reports: Hx Asthma, Hx Sleep Apnea Neurological Medical History: Denies: Hx Seizures Endocrine Medical History: Reports: Hx Diabetes Mellitus Type 2 - Prescribed insulin, states he stopped taking it because it is a hassle Renal/ Medical History: Reports: Hx Kidney Stones. Denies: Hx Peritoneal Dialysis Psychiatric Medical History: Denies: Hx Depression Traumatic Medical History: Reports: Hx Fractures - left leg, 2 ribs, skull Past Surgical History: Reports: Hx Orthopedic Surgery - lower back, left leg. Denies: Hx Pacemaker - Immunizations Hx Diphtheria, Pertussis, Tetanus Vaccination: No - unknown Review of Systems - Review of Systems Constitutional: denies: Chills, Fever Cardiovascular: Chest pain. denies: Palpitations -: Yes All other systems reviewed and negative Physical Exam - Vital signs Vitals: Temp Pulse Resp BP Pulse Ox 97.6 F 79 20 151/75 H 97 04/09/19 09:21 04/09/19 09:21 04/09/19 09:21 04/09/19 09:21 04/09/19 09:21 Interpretation: Normal - General General appearance: Appears well, Alert - HEENT Head: Normocephalic, Atraumatic Eyes: Normal Pupils: PERRL - Respiratory Respiratory status: No respiratory distress Chest status: Nontender Breath sounds: Normal Chest palpation: Normal - Cardiovascular Rhythm: Regular Heart sounds: Normal auscultation Murmur: No - Abdominal Inspection: Normal Distension: No distension Bowel sounds: Normal Tenderness: Nontender Organomegaly: No organomegaly - Back Back: Normal, Nontender - Extremities General upper extremity: Normal inspection, Nontender, Normal color, Normal ROM, Normal temperature General lower extremity: Normal inspection, Nontender, Normal color, Normal ROM, Normal temperature, Normal weight bearing. No: Dee's sign - Neurological Neuro grossly intact: Yes Cognition: Normal Orientation: AAOx4 Mayo Coma Scale Eye Opening: Spontaneous [place] Coma Scale Verbal: Oriented [place] Coma Scale Motor: Obeys Commands [place] Coma Scale Total: 15 Speech: Normal Motor strength normal: LUE, RUE, LLE, RLE Sensory: Normal - Psychological Associated symptoms: Normal affect, Normal mood - Skin Skin Temperature: Warm Skin Moisture: Dry Skin Color: Normal Course - Re-evaluation Re-evalutation: 04/09/19 15:58 04/09/19 15:53 Labs reviewed, including TnI 0.025. Chest x-ray no acute disease per radiologist. EKG per my interpretation shows normal sinus rhythm at 76 with normal QRS axis. 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 I discussed the case in detail with Dr. Ford, who has accepted the patient to [facility]. Pt is currently stable. 04/09/19 16:30 PT RE-EXAMINED. STABLE TO TRANSPORT TO [facility]. - Vital Signs Vital signs: Temp Pulse Resp BP Pulse Ox 97.6 F 79 18 147/79 H 97 04/09/19 09:21 04/09/19 09:21 04/09/19 15:01 04/09/19 15:00 04/09/19 15:01 - Laboratory Result Diagrams: 04/09/19 10:37 04/09/19 10:37 Laboratory results interpreted by me: 04/09/19 04/09/19 10:37 10:37 MCH 34.0 H Sodium 135.2 L Glucose 268 H Creatine Kinase 53 L Discharge - Discharge Clinical Impression: Chest pain Qualifiers: Chest pain type: unspecified Qualified Code(s): R07.9 - Chest pain, unspecified Condition: Serious Disposition: [facility]
[2019-04-09] MEDS ORDERED: NICOTINE 21 MG/24 HR PATCH.TD24 TD ONE (15:57)
[2019-04-09 16:35] VITALS: BP 127/75
--- NOTE | 2019-04-09 20:11 | EKG REPORT ---
SEVERITY:- NORMAL ECG - SINUS RHYTHM : Confirmed by: Chelle Sullivan MD 09-Apr-2019 20:10:48
== END 2019-04-09 17:00 | disposition short-term general hospital (02) ==
LOC: ER 09:12
DX: R07.9 Chest pain, unspecified (principal); I10 Essential (primary) hypertension; I25.2 Old myocardial infarction; J45.909 Unspecified asthma, uncomplicated; E11.9 Type 2 diabetes mellitus without complications; F17.200 Nicotine dependence, unspecified, uncomplicated; Z86.711 Personal history of pulmonary embolism; Z88.6 Allergy status to analgesic agent; Z88.5 Allergy status to narcotic agent; Z82.49 Family history of ischemic heart disease and other diseases of the circulatory system
CPT/HCPCS: 36415; 71046; 80053; 82550; 82553; 84484; 85025; 85610; 93005; 93010; 99285

== ENCOUNTER 2019-04-27 12:07 | Emergency (ER) | payer SELFPAY ==
--- NOTE | 2019-04-27 12:28 | ER Document Report ---
ED Medical Screen (RME) - General Chief Complaint: Leg Swelling Stated Complaint: LEG PAIN/LEG SWELLING Time Seen by Provider: 04/27/19 12:23 Mode of Arrival: Wheelchair Information source: Patient Notes: 44-year-old male presents emergency department with left lower leg swelling and erythema. Patient just received a CABG. He denies fever vomiting diarrhea. Patient is a diabetic with cardiac disease. Left lower leg is swollen with erythema and firmness. I have greeted and performed a rapid initial assessment of this patient. A comprehensive ED assessment and evaluation of the patient, analysis of test results and completion of the medical decision making process will be conducted by additional ED providers. TRAVEL OUTSIDE OF THE [place] IN LAST 30 DAYS: No - Related Data Allergies/Adverse Reactions: acetaminophen [From Percocet] Allergy (Verified 04/27/19 12:23) Vomiting Penicillins Adverse Reaction (Severe, Verified 04/27/19 12:23) Unknown reaction oxycodone Adverse Reaction (Verified 04/27/19 12:23) Past Medical History - Past Medical History Cardiac Medical History: Reports: Hx Heart Attack - x 2, both treated in [place], Hx Hypercholesterolemia, Hx Hypertension Pulmonary Medical History: Reports: Hx Asthma, Hx Sleep Apnea Denies: Hx Pneumonia, Hx Tuberculosis Neurological Medical History: Denies: Hx Seizures Endocrine Medical History: Reports: Hx Diabetes Mellitus Type 2 - Prescribed insulin, states he stopped taking it because it is a hassle Renal/ Medical History: Reports: Hx Kidney Stones. Denies: Hx Peritoneal Dialysis Psychiatric Medical History: Denies: Hx Depression Traumatic Medical History: Reports: Hx Fractures - left leg, 2 ribs, skull Past Surgical History: Reports: Hx Orthopedic Surgery - lower back, left leg. Denies: Hx Pacemaker - Immunizations Hx Diphtheria, Pertussis, Tetanus Vaccination: No - unknown Physical Exam - Vital signs Vitals: Temp Pulse Resp BP Pulse Ox 98.4 F 99 18 119/69 96 04/27/19 12:23 04/27/19 12:04/27/19 12:04/27/19 12:04/27/19 12:23 Course - Vital Signs Vital signs: Temp Pulse Resp BP Pulse Ox 98.4 F 99 18 119/69 96 04/27/19 12:23 04/27/19 12:23 04/27/19 12:23 04/27/19 12:23 04/27/19 12:23
[2019-04-27 13:07] LABS: ABSOLUTE EOSINOPHILS # (AUTO) 0.3 10^3/uL (0.0-0.6); ABSOLUTE LYMPHOCYTES (AUTO) 2.4 10^3/uL (0.5-4.7); ABSOLUTE MONOCYTES (AUTO) 0.9 10^3/uL (0.1-1.4); ABSOLUTE NEUT (AUTO) 7.1 10^3/uL (1.7-8.2); BASOPHILS % (AUTO) 0.4 % (0-2); EOSINOPHILS % (AUTO) 2.4 % (0-6); HEMATOCRIT 34.2 % (37.9-51.0); HEMOGLOBIN 12.1 g/dL (13.5-17.0); LYMPHOCYTES % (AUTO) 22.6 % (13-45); MEAN CORPUSCULAR HGB CONC 35.2 g/dL (32.0-36.0); MEAN CORPUSCULAR VOLUME 97 fl (80-97); MONOCYTES % (AUTO) 8.3 % (3-13); PLATELET COUNT 421 10^3/uL (150-450); RED BLOOD COUNT 3.54 10^6/uL (4.35-5.55); RED CELL DISTRIBUTION WIDTH 13.4 % (11.5-14.0); SEGMENTED NEUTROPHILS % (AUTO) 66.3 % (42-78); TOTAL CELLS COUNTED % (AUTO) 100 %; WHITE BLOOD COUNT 10.7 10^3/uL (4.0-10.5)
[2019-04-27 13:12] LABS: INTERNATIONAL RATION (INR) 1.07; PROTHROMBIN TIME 13.9 SEC (11.4-15.4)
[2019-04-27 13:23] LABS: ALBUMIN 3.8 g/dL (3.5-5.0); ALKALINE PHOSPHATASE 94 U/L (38-126); ANION GAP 11 (5-19); ASPARTATE AMINO TRANSFERASE 22 U/L (17-59); BILIRUBIN,DIRECT 0.1 mg/dL (0.0-0.4); BILIRUBIN,TOTAL 0.4 mg/dL (0.2-1.3); BLOOD UREA NITROGEN 21 mg/dL (7-20); CALCIUM 9.2 mg/dL (8.4-10.2); CARBON DIOXIDE 30 mmol/L (22-30); CHLORIDE 96 mmol/L (98-107); GLUCOSE 254 mg/dL (75-110); POTASSIUM 4.1 mmol/L (3.6-5.0); TOTAL PROTEIN 7.6 g/dL (6.3-8.2)
--- NOTE | 2019-04-27 13:58 | XCELERA REPORT ---
[address] [address] Lower Extremity Venous Evaluation Procedure: Color flow and duplex imaging of the veins of the left lower extremity as well as the right Common Femoral vein. Right Sided Venous Evaluation The right common femoral vein is fully compressible. Spontaneous and phasic flow is present in the right common femoral vein. Left Sided Venous Evaluation Echogenic, enlarged varicose veins with no Colour flow. In the calf. Normal vessel filling wall to wall, compression and augmentation as well as Colour flow down to the infrageniculate veins. Critical Findings Discussed with BREANNA Gonzalez in the emergency room. Interpretation Summary No duplex evidence of DVT or obstruction in the left lower extremity nor in the right Common Femoral vein. Thromobed varicose veins in the left calf. Name: IGNACIO LOPEZ Age: 44 yrs Gender: Male : 1975 Patient Status: Preadmit Patient Location: Study Date: 04/27/2019 01:09 PM Reason For Study: LLL swollen, +erythema, recent CABG Ordering Physician: LOVE GONZALEZ Performed By: Tamir Colon : LOVE GONZALEZ > Jose Anthony
--- NOTE | 2019-04-27 15:22 | ER Document Report ---
ED General - General Chief Complaint: Leg Swelling Stated Complaint: LEG PAIN/LEG SWELLING Time Seen by Provider: 04/27/19 12:23 Mode of Arrival: Wheelchair TRAVEL OUTSIDE OF THE [place] IN LAST 30 DAYS: No - HPI Notes: Patient is a 44-year-old male who presents emergency department for evaluation. He is status post CABG and [place] on April 14. He was discharged 8 days ago. He had vein harvest from his left leg. He states yesterday he noticed pain and swelling in his left leg. It really only hurts when he is ambulating. He denies any chest pain or shortness of breath. States his healing is been going well. He is been taking medications as prescribed. He has a follow-up appoint with his surgeon this week. - Related Data Allergies/Adverse Reactions: acetaminophen [From Percocet] Allergy (Verified 04/27/19 12:23) Vomiting Penicillins Adverse Reaction (Severe, Verified 04/27/19 12:23) Unknown reaction oxycodone Adverse Reaction (Verified 04/27/19 12:23) Home Medications: List reviewed, please see notes Past Medical History - General Information source: Patient - Social History Smoking Status: Current Every Day Smoker Chew tobacco use (# tins/day): No Frequency of alcohol use: None Drug Abuse: None Family History: CAD, COPD, DM, Hyperlipidemia, Hypertension Patient has suicidal ideation: No Patient has homicidal ideation: No - Past Medical History Cardiac Medical History: Reports: Hx Coronary Artery Disease, Hx Heart Attack - x 2, both treated in [place], Hx Hypercholesterolemia, Hx Hypertension Pulmonary Medical History: Reports: Hx Asthma, Hx Sleep Apnea Denies: Hx Pneumonia, Hx Tuberculosis Neurological Medical History: Denies: Hx Seizures Endocrine Medical History: Reports: Hx Diabetes Mellitus Type 2 - Prescribed insulin, states he stopped taking it because it is a hassle Renal/ Medical History: Reports: Hx Kidney Stones. Denies: Hx Peritoneal Dialysis Psychiatric Medical History: Denies: Hx Depression Traumatic Medical History: Reports: Hx Fractures - left leg, 2 ribs, skull Past Surgical History: Reports: Hx Cardiac Surgery - triple bypass, Hx Orthopedic Surgery - lower back, left leg. Denies: Hx Pacemaker - Immunizations Hx Diphtheria, Pertussis, Tetanus Vaccination: No - unknown Review of Systems - Review of Systems Constitutional: No symptoms reported EENT: No symptoms reported Cardiovascular: No symptoms reported Respiratory: No symptoms reported Gastrointestinal: No symptoms reported Genitourinary: No symptoms reported Musculoskeletal: See HPI Skin: See HPI Neurological/Psychological: No symptoms reported Physical Exam - Vital signs Vitals: Temp Pulse Resp BP Pulse Ox 98.4 F 99 18 119/69 96 04/27/19 12:23 04/27/19 12:23 04/27/19 12:23 04/27/19 12:23 04/27/19 12:23 - Notes Notes: This is a very pleasant 44-year-old male who appears older than his stated age in no acute distress. Vital signs reviewed, please refer to chart. Head is normocephalic, atraumatic. Pupils equal round, reactive to light. Neck is supple without meningismus. Heart is regular rate and rhythm. Lungs are clear to auscultation bilaterally. Examination of the chest wall yields well approximated scar consistent with recent CABG, and upper abdominal scar horizontally oriented. There are sutures still in place at that scar. Otherwise, no signs of dehiscence or surrounding erythema or induration. Abdomen is soft, nontender, normoactive bowel sounds throughout. Extremities without cyanosis, clubbing. Peripheral pulses are equal. Skin is warm and dry. Examination of the right lower extremity yields a well approximated wound to the left medial thigh consistent with recent vein harvest. He has a diffuse area of erythema on the proximal medial left calf that is tender to palpation. No marked posterior calf tenderness. Patient is awake and alert, neurological exam is nonfocal. Course - Re-evaluation Re-evalutation: 04/27/19 15:22 Patient presents to the emergency department for evaluation. Laboratory investigations were obtained, Doppler of the left lower extremity was ordered. No deep venous thrombosis was noted. He does have an area of varicosity was superficial blood clot noted. Given his coronary artery disease history I do not feel comfortable prescribing NSAIDs at this time. He is told to apply warm compresses to the area, will treat his superficial thrombophlebitis. He Jacky has an appointment with his his surgeon this week, he is encouraged to follow-up with him regarding this as well. If you develop chest pain, trouble breathing, worsening of his leg pain, or any other new or concerning symptoms, he needs to return immediately to the emergency department for evaluation. - Vital Signs Vital signs: Temp Pulse Resp BP Pulse Ox 98.4 F 99 18 119/69 96 04/27/19 12:23 04/27/19 12:23 04/27/19 12:23 04/27/19 12:23 04/27/19 12:23 - Laboratory Result Diagrams: 04/27/19 12:49 04/27/19 12:49 Laboratory results interpreted by me: 04/27/19 04/27/19 12:49 12:49 WBC 10.7 H RBC 3.54 L Hgb 12.1 L Hct 34.2 L MCH 34.0 H Sodium 136.6 L Chloride 96 L BUN 21 H Glucose 254 H Discharge - Discharge Clinical Impression: Superficial thrombophlebitis of left leg, Varicose veins of left lower extremity Condition: Stable Disposition: HOME, SELF-CARE Instructions: Superficial Phlebitis ([facility]), Varicose Veins ([facility]) Additional Instructions: Warm compresses to the area. Please follow-up with your surgeon as scheduled. If you develop increased pain, chest pain, difficulty breathing, worsening swelling, or any other new or concerning symptoms, please return immediately to the emergency department for evaluation.
[2019-04-27 15:26] VITALS: BP 111/59
== END 2019-04-27 15:28 | disposition home or self-care (01) ==
LOC: ER 12:07
DX: I80.02 Phlebitis and thrombophlebitis of superficial vessels of left lower extremity (principal); I83.92 Asymptomatic varicose veins of left lower extremity; M79.89 Other specified soft tissue disorders; F17.200 Nicotine dependence, unspecified, uncomplicated; E11.9 Type 2 diabetes mellitus without complications; Z95.1 Presence of aortocoronary bypass graft; Z88.6 Allergy status to analgesic agent; Z88.0 Allergy status to penicillin; I25.2 Old myocardial infarction
CPT/HCPCS: 36415; 80053; 85025; 85610; 93971; 99284

== ENCOUNTER 2019-06-18 15:12 | Emergency (ER) | payer OTHER ==
--- NOTE | 2019-06-18 16:27 | ER Document Report ---
ED Medical Screen (RME) - General Chief Complaint: Chest Pain Stated Complaint: CHEST PAIN Time Seen by Provider: 06/18/19 16:22 Mode of Arrival: Ambulatory Information source: Patient Notes: 44-year-old male presented to ED for complaint of chest pain about 45 minutes before coming to the emergency room. To the left upper chest going down the left arm. He is already on Plavix. He states he had a triple bypass surgery on April 14, 2019. He states he had a heart attack in the emergency room at [facility] on 29 March had the triple bypass on the . Patient is alert oriented respirations regular nonlabored speaking in full sentences. He states the pain is like a toothache now. I have greeted and performed a rapid initial assessment of this patient. A comprehensive ED assessment and evaluation of the patient, analysis of test results and completion of medical decision making process will be conducted by an additional ED providers. TRAVEL OUTSIDE OF THE [place] IN LAST 30 DAYS: No - Related Data Allergies/Adverse Reactions: acetaminophen [From Percocet] Allergy (Verified 06/18/19 16:22) Vomiting Penicillins Adverse Reaction (Severe, Verified 06/18/19 16:22) Unknown reaction oxycodone Adverse Reaction (Verified 06/18/19 16:22) Past Medical History - Past Medical History Cardiac Medical History: Reports: Hx Coronary Artery Disease, Hx Heart Attack - x 2, both treated in [place], Hx Hypercholesterolemia, Hx Hypertension Pulmonary Medical History: Reports: Hx Asthma, Hx Sleep Apnea Denies: Hx Pneumonia, Hx Tuberculosis Neurological Medical History: Denies: Hx Seizures Endocrine Medical History: Reports: Hx Diabetes Mellitus Type 2 - Prescribed insulin, states he stopped taking it because it is a hassle Renal/ Medical History: Reports: Hx Kidney Stones. Denies: Hx Peritoneal Dialysis Psychiatric Medical History: Denies: Hx Depression Traumatic Medical History: Reports: Hx Fractures - left leg, 2 ribs, skull Past Surgical History: Reports: Hx Cardiac Surgery - triple bypass, Hx Orthopedic Surgery - lower back, left leg. Denies: Hx Pacemaker - Immunizations Hx Diphtheria, Pertussis, Tetanus Vaccination: No - unknown
--- NOTE | 2019-06-18 16:35 | ER Document Report ---
Doctor's Note Notes: 06/18/19 16:33 1 nitro sublingual given at this time will monitor until gets in his room. bp124/73
[2019-06-18 16:42] VITALS: BP 101/49
--- NOTE | 2019-06-18 17:12 | ER Document Report ---
ED General - General Chief Complaint: Chest Pain Stated Complaint: CHEST PAIN Time Seen by Provider: 06/18/19 16:22 Mode of Arrival: Ambulatory Notes: Pt sitting up bed, Resp even & unlabored. Pt able to speak in complete sentences. 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 Pt denies chest pain or SOB at this time. NAD noted at present time. 44-year-old male arrives with his . Patient drove himself. This occurred around 45 minutes prior to arrival. Patient initially had blood pres sure 124/74 but after nitro it was 101/49 and upon my exam was 99/58. Patient takes metoprolol 25 mg 1-1/2 tablets daily by personal doctor's order. He had a CABG and [place] by Dr. Razo on 18 March. He also had an CT on 30 March in which he drove himself here. Patient sees Dr. Heard or is scheduled for his doctor. He takes Plavix and aspirin as well as atorvastatin and Lantus and Humalog as IDDM. He smokes 1 pack a day cigarettes. He started when he was 20 years old. He also smokes some [place] cigars when he was 5 years old at [facility]. His father made him smoke the entire 3 packs and he did not start again until he was 20. Patient reports his chest pain was 7 out of 10 when this initially occurred but it was 0 out of 10 on my inspection. TRAVEL OUTSIDE OF THE [place] IN LAST 30 DAYS: No - Related Data Allergies/Adverse Reactions: acetaminophen [From Percocet] Allergy (Verified 06/18/19 16:22) Vomiting Penicillins Adverse Reaction (Severe, Verified 06/18/19 16:22) Unknown reaction oxycodone Adverse Reaction (Verified 06/18/19 16:22) Home Medications: mi. cholesterol. htn Past Medical History - General Information source: Patient - Social History Smoking Status: Current Every Day Smoker Chew tobacco use (# tins/day): No Frequency of alcohol use: None Drug Abuse: None Lives with: Family Family History: CAD, COPD, DM, Hyperlipidemia, Hypertension Patient has suicidal ideation: No Patient has homicidal ideation: No - Past Medical History Cardiac Medical History: Reports: Hx Coronary Artery Disease, Hx Heart Attack, Hx Hypercholesterolemia, Hx Hypertension Pulmonary Medical History: Reports: Hx Asthma, Hx Sleep Apnea Denies: Hx Pneumonia, Hx Tuberculosis Neurological Medical History: Denies: Hx Seizures Endocrine Medical History: Reports: Hx Diabetes Mellitus Type 2 Renal/ Medical History: Reports: Hx Kidney Stones. Denies: Hx Peritoneal Dialysis Psychiatric Medical History: Denies: Hx Depression Traumatic Medical History: Reports: Hx Fractures - left leg, 2 ribs, skull Past Surgical History: Reports: Hx Cardiac Surgery - triple bypass, Hx Orthopedic Surgery - lower back, left leg. Denies: Hx Pacemaker - Immunizations Hx Diphtheria, Pertussis, Tetanus Vaccination: No - unknown Review of Systems - Review of Systems Constitutional: No symptoms reported EENT: No symptoms reported Cardiovascular: See HPI, Chest pain Respiratory: No symptoms reported Gastrointestinal: No symptoms reported Genitourinary: No symptoms reported Male Genitourinary: No symptoms reported Musculoskeletal: No symptoms reported Skin: No symptoms reported Hematologic/Lymphatic: No symptoms reported Neurological/Psychological: No symptoms reported Physical Exam - Vital signs Vitals: Temp Pulse Resp BP Pulse Ox 98.6 F 94 16 124/71 95 06/18/19 15:30 06/18/19 15:30 06/18/19 15:30 06/18/19 15:30 06/18/19 15:30 Interpretation: Hypotensive - General General appearance: Appears well - HEENT Head: Normocephalic Eyes: Normal Conjunctiva: Normal Cornea: Normal Extraocular movements intact: Yes Eyelashes: Normal Pupils: PERRL Nasal: Normal Mouth/Lips: Normal Mucous membranes: Normal Pharynx: Normal Neck: Normal - Respiratory Respiratory status: No respiratory distress Chest status: Nontender Breath sounds: Normal Chest palpation: Normal - Cardiovascular Rhythm: Regular Heart sounds: Normal auscultation Murmur: No Friction rub: No Aj's crunch: No - Abdominal Inspection: Normal Distension: No distension Bowel sounds: Normal Tenderness: Nontender Organomegaly: No organomegaly - Back Back: Normal - Extremities General upper extremity: Normal inspection General lower extremity: Normal inspection - Neurological Neuro grossly intact: Yes Cognition: Normal Orientation: AAOx4 [place] Coma Scale Eye Opening: Spontaneous Mayo Coma Scale Verbal: Oriented Speech: Normal Cranial nerves: Normal Cerebellar coordination: Normal Motor strength normal: LUE, RUE, LLE, RLE - Psychological Associated symptoms: Normal affect - Skin Skin Temperature: Warm Skin Moisture: Dry Course - Vital Signs Vital signs: Temp Pulse Resp BP Pulse Ox 98.6 F 94 16 101/49 L 95 06/18/19 15:30 06/18/19 15:30 06/18/19 15:30 06/18/19 16:38 06/18/19 15:30 - Laboratory Result Diagrams: 06/18/19 17:00 06/18/19 17:00 Laboratory results interpreted by me: 06/18/19 06/18/19 06/18/19 17:00 17:00 17:00 RDW 14.7 H Glucose 253 H Alkaline Phosphatase 151 H Total Protein 8.4 H Urine Glucose (UA) >=500 H Urine Ketones TRACE H Urine Urobilinogen 4.0 H - Diagnostic Test Radiology results interpreted by me: 06/18/19 18:16 Patient refused any chest x-ray after he was told his labs were normal. - EKG Interpretation by Me EKG shows normal: Sinus rhythm Rate: Normal Rhythm: NSR, PVC's Critical Care Note - Critical Care Note Total time excluding time spent on procedures (mins): 90 Comments: Patient's blood pressure increased to 139/93 and he advised he has to get home to his 14-year-old and 4-year-old child hours who may be destroying the couch. I advised that he will have to sign out AMA and he is aware of this. I gave him the pros and cons of leaving and staying. Discharge - Discharge Clinical Impression: Chest pain in adult, Angina at rest, Smoker Disposition: AGAINST MEDICAL ADVICE Additional Instructions: Return to the emergency room if your symptoms persist or increase and also we advise you to stop smoking we also advise you to; decrease fats in diet. Good luck with your [place] at home
[2019-06-18 17:28] LABS: ABSOLUTE EOSINOPHILS # (AUTO) 0.4 10^3/uL (0.0-0.6); ABSOLUTE MONOCYTES (AUTO) 0.8 10^3/uL (0.1-1.4); MEAN CORPUSCULAR HGB CONC 34.3 g/dL (32.0-36.0); TOTAL CELLS COUNTED % (AUTO) 100 %
[2019-06-18 17:29] LABS: APPEARANCE,URINE CLEAR; BILIRUBIN,URINE NEGATIVE (NEGATIVE); COLOR,URINE YELLOW; GLUCOSE, URINE >=500 mg/dL (NEGATIVE); KETONES,URINE TRACE mg/dL (NEGATIVE); PROTEIN,URINE NEGATIVE (NEGATIVE); URINE SPECIFIC GRAVITY 1.031
[2019-06-18 17:45] LABS: ABSOLUTE LYMPHOCYTES (AUTO) 3.6 10^3/uL (0.5-4.7); ABSOLUTE NEUT (AUTO) 4.4 10^3/uL (1.7-8.2); BASOPHILS % (AUTO) 0.5 % (0-2); EOSINOPHILS % (AUTO) 4.7 % (0-6); HEMATOCRIT 45.1 % (37.9-51.0); HEMOGLOBIN 15.5 g/dL (13.5-17.0); LYMPHOCYTES % (AUTO) 38.9 % (13-45); MEAN CORPUSCULAR HEMOGLOBIN 32.1 pg (27.0-33.4); MEAN CORPUSCULAR VOLUME 94 fl (80-97); PLATELET COUNT 233 10^3/uL (150-450); RED BLOOD COUNT 4.81 10^6/uL (4.35-5.55); RED CELL DISTRIBUTION WIDTH 14.7 % (11.5-14.0); SEGMENTED NEUTROPHILS % (AUTO) 46.9 % (42-78); WHITE BLOOD COUNT 9.3 10^3/uL (4.0-10.5)
[2019-06-18 17:55] LABS: ALBUMIN 4.5 g/dL (3.5-5.0); ALKALINE PHOSPHATASE 151 U/L (38-126); ANION GAP 11 (5-19); ASPARTATE AMINO TRANSFERASE 23 U/L (17-59); BILIRUBIN,DIRECT 0.4 mg/dL (0.0-0.4); BILIRUBIN,TOTAL 0.4 mg/dL (0.2-1.3); BLOOD UREA NITROGEN 17 mg/dL (7-20); CALCIUM 9.6 mg/dL (8.4-10.2); CARBON DIOXIDE 30 mmol/L (22-30); CHLORIDE 98 mmol/L (98-107); GLUCOSE 253 mg/dL (75-110); POTASSIUM 4.1 mmol/L (3.6-5.0); TOTAL PROTEIN 8.4 g/dL (6.3-8.2)
--- NOTE | 2019-06-18 18:43 | EKG REPORT ---
SEVERITY:- ABNORMAL ECG - SINUS RHYTHM VENTRICULAR PREMATURE COMPLEX LA ENLARGEMENT NONSPECIFIC ST-T CHANGES ANTEROLATERAL LEADS , NEW, SINCE 09/07/18 : Confirmed by: Cedric Bagley MD 18-Jun-2019 18:42:40
== END 2019-06-18 18:20 | disposition left against medical advice (07) ==
LOC: ER 15:12
DX: R07.9 Chest pain, unspecified (principal); I20.9 Angina pectoris, unspecified; F17.200 Nicotine dependence, unspecified, uncomplicated; E78.00 Pure hypercholesterolemia, unspecified; I10 Essential (primary) hypertension; E11.9 Type 2 diabetes mellitus without complications; Z79.02 Long term (current) use of antithrombotics/antiplatelets; Z95.1 Presence of aortocoronary bypass graft; Z88.6 Allergy status to analgesic agent; Z88.0 Allergy status to penicillin; I25.2 Old myocardial infarction
CPT/HCPCS: 36415; 80053; 81001; 83690; 84484; 85025; 93005; 93010; 99291; 99292

== ENCOUNTER → 2019-08-22 | Outpatient (CLI) | payer OTHER ==
[2019-08-22 09:59] LABS: ABSOLUTE BASOPHILS # (AUTO) 0.1 10^3/uL (0.0-0.2); ABSOLUTE EOSINOPHILS # (AUTO) 0.4 10^3/uL (0.0-0.6); ABSOLUTE LYMPHOCYTES (AUTO) 2.3 10^3/uL (0.5-4.7); ABSOLUTE MONOCYTES (AUTO) 0.5 10^3/uL (0.1-1.4); BASOPHILS % (AUTO) 0.8 % (0-2); HEMATOCRIT 46.4 % (37.9-51.0); HEMOGLOBIN 15.9 g/dL (13.5-17.0); LYMPHOCYTES % (AUTO) 32.3 % (13-45); MEAN CORPUSCULAR HEMOGLOBIN 31.8 pg (27.0-33.4); MEAN CORPUSCULAR HGB CONC 34.3 g/dL (32.0-36.0); MEAN CORPUSCULAR VOLUME 93 fl (80-97); MONOCYTES % (AUTO) 7.2 % (3-13); PLATELET COUNT 210 10^3/uL (150-450); SEGMENTED NEUTROPHILS % (AUTO) 54.7 % (42-78); TOTAL CELLS COUNTED % (AUTO) 100 %; WHITE BLOOD COUNT 7.3 10^3/uL (4.0-10.5)
[2019-08-22 10:14] LABS: ALBUMIN 3.6 g/dL (3.5-5.0); ALKALINE PHOSPHATASE 130 U/L (38-126); ANION GAP 11 (5-19); ASPARTATE AMINO TRANSFERASE 20 U/L (17-59); BILIRUBIN,TOTAL 0.4 mg/dL (0.2-1.3); BLOOD UREA NITROGEN 11 mg/dL (7-20); CALCIUM 8.9 mg/dL (8.4-10.2); CARBON DIOXIDE 25 mmol/L (22-30); CHLORIDE 98 mmol/L (98-107); GLUCOSE 384 mg/dL (75-110); TOTAL PROTEIN 6.6 g/dL (6.3-8.2)
[2019-08-23 06:36] LABS: HEPATITIS C VIRUS AB 0.3 s/co ratio (0.0-0.9)
== END ==
LOC: CCC 08:41
PROVIDERS: ATTEND Internal Medicine
DX: E11.8 Type 2 diabetes mellitus with unspecified complications (principal); R94.5 Abnormal results of liver function studies
CPT/HCPCS: 36415; 80053; 82977; 83036; 84153; 84443; 85025; 86803; 86804

== ENCOUNTER 2019-10-04 19:19 | Emergency (ER) | payer OTHER ==
[2019-10-04 19:24] VITALS: BP 162/74
--- NOTE | 2019-10-04 20:03 | ER Document Report ---
ED Medical Screen (RME) - General Chief Complaint: Other Stated Complaint: FLANK PAIN Time Seen by Provider: 10/04/19 19:54 Primary Care Provider: COUNT INCLUDES THE [facility] [Primary Care Provider] - Follow up as needed Notes: Patient is a 44-year-old male who presents to the emergency department with a chief complaint of left lateral rib pain. 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 Patient reports he does smoke cigarettes pretty heavily. Patient reports he does have a history of pulmonary embolus with the last being 2 years ago. Patient reports over the past week he has had some chest tightness with acute onset of left lateral lung pain. Patient reports this pain feels very similar to when he had his previous pulmonary embolism. Patient reports he also did have a triple bypass April 14, 2019. Patient is on Plavix denies any other blood thinner. TRAVEL OUTSIDE OF THE [place] IN LAST 30 DAYS: No - Related Data Allergies/Adverse Reactions: Penicillins Adverse Reaction (Severe, Verified 10/04/19 19:53) Unknown reaction oxycodone Adverse Reaction (Verified 10/04/19 19:53) Past Medical History - Past Medical History Cardiac Medical History: Reports: Hx Coronary Artery Disease, Hx Heart Attack, Hx Hypercholesterolemia, Hx Hypertension Pulmonary Medical History: Reports: Hx Asthma, Hx Sleep Apnea Denies: Hx Pneumonia, Hx Tuberculosis Neurological Medical History: Denies: Hx Seizures Endocrine Medical History: Reports: Hx Diabetes Mellitus Type 2 Renal/ Medical History: Reports: Hx Kidney Stones. Denies: Hx Peritoneal Dialysis Psychiatric Medical History: Denies: Hx Depression Traumatic Medical History: Reports: Hx Fractures - left leg, 2 ribs, skull Past Surgical History: Reports: Hx Cardiac Surgery - triple bypass, Hx Orthopedic Surgery - lower back, left leg. Denies: Hx Pacemaker - Immunizations Hx Diphtheria, Pertussis, Tetanus Vaccination: No - unknown Physical Exam - Vital signs Vitals: Temp Pulse Resp BP Pulse Ox 98.8 F 113 H 16 162/74 H 96 10/04/19 19:23 10/04/19 19:23 10/04/19 19:23 10/04/19 19:23 10/04/19 19:23 - Respiratory Respiratory status: No respiratory distress Chest status: Nontender Breath sounds: Rhonchi - Scattered rhonchi noted throughout Course - Re-evaluation Re-evalutation: 06/20/20 20:02 Patient did be slightly tachycardic with a heart rate of 113 in triage. Patient has significant risk factors for pulmonary embolus due to personal history, cigarette smoking. Will initiate blood work to include basic labs as well as a chest x-ray and EKG. I have greeted and performed a rapid initial assessment of this patient. A comprehensive ED assessment and evaluation of the patient, analysis of test results and completion of the medical decision making process will be conducted by additional ED providers. - Vital Signs Vital signs: Temp Pulse Resp BP Pulse Ox 98.8 F 113 H 16 162/74 H 96 10/04/19 19:23 10/04/19 19:23 10/04/19 19:23 10/04/19 19:23 10/04/19 19:23 Doctor's Discharge - Discharge Referrals: [facility] [Primary [facility]] - Follow up as needed
[2019-10-04 20:23] LABS: ABSOLUTE EOSINOPHILS # (AUTO) 0.3 10^3/uL (0.0-0.6); ABSOLUTE LYMPHOCYTES (AUTO) 2.9 10^3/uL (0.5-4.7); ABSOLUTE MONOCYTES (AUTO) 0.7 10^3/uL (0.1-1.4); ABSOLUTE NEUT (AUTO) 3.4 10^3/uL (1.7-8.2); BASOPHILS % (AUTO) 0.4 % (0-2); EOSINOPHILS % (AUTO) 4.4 % (0-6); HEMATOCRIT 43.2 % (37.9-51.0); HEMOGLOBIN 14.8 g/dL (13.5-17.0); LYMPHOCYTES % (AUTO) 39.6 % (13-45); MEAN CORPUSCULAR HEMOGLOBIN 33.2 pg (27.0-33.4); MEAN CORPUSCULAR HGB CONC 34.2 g/dL (32.0-36.0); MEAN CORPUSCULAR VOLUME 97 fl (80-97); MONOCYTES % (AUTO) 9.3 % (3-13); PLATELET COUNT 224 10^3/uL (150-450); RED BLOOD COUNT 4.45 10^6/uL (4.35-5.55); RED CELL DISTRIBUTION WIDTH 15.1 % (11.5-14.0); SEGMENTED NEUTROPHILS % (AUTO) 46.3 % (42-78); TOTAL CELLS COUNTED % (AUTO) 100 %; WHITE BLOOD COUNT 7.4 10^3/uL (4.0-10.5)
[2019-10-04 20:37] LABS: ALBUMIN 3.8 g/dL (3.5-5.0); ALKALINE PHOSPHATASE 188 U/L (38-126); ANION GAP 8 (5-19); ASPARTATE AMINO TRANSFERASE 19 U/L (17-59); BILIRUBIN,TOTAL 0.3 mg/dL (0.2-1.3); BLOOD UREA NITROGEN 10 mg/dL (7-20); CALCIUM 9.4 mg/dL (8.4-10.2); CARBON DIOXIDE 27 mmol/L (22-30); CHLORIDE 99 mmol/L (98-107); GLUCOSE 373 mg/dL (75-110); POTASSIUM 4.2 mmol/L (3.6-5.0)
--- NOTE | 2019-10-04 20:54 | RADIOLOGY REPORT (SQ) ---
EXAM DESCRIPTION: XR CHEST 2 VIEWS COMPLETED DATE/TME: 10/04/2019 20:00 CLINICAL HISTORY: 44 years, Male, Left lateral rib pain COMPARISON: X-ray chest 03/30/2019 NUMBER OF VIEWS: TECHNIQUE: LIMITATIONS: None. FINDINGS: No evidence of pulmonary infiltrate or pleural effusion. The heart is normal in size. The mediastinum is unremarkable. Pulmonary vascularity appears normal. The patient has had a sternotomy, since the prior chest x-ray. IMPRESSION: No acute finding. copyright 2010 [employer]- All Rights Reserved
--- NOTE | 2019-10-04 21:15 | EKG REPORT ---
SEVERITY:- BORDERLINE ECG - SINUS TACHYCARDIA PROBABLE LEFT ATRIAL ABNORMALITY : Confirmed by: Cedric Bagley MD 04-Oct-2019 21:14:27
== END 2019-10-04 21:25 | disposition left against medical advice (07) ==
LOC: ER 19:19
DX: R07.81 Pleurodynia (principal); R00.0 Tachycardia, unspecified; J43.9 Emphysema, unspecified; J45.909 Unspecified asthma, uncomplicated; I25.10 Atherosclerotic heart disease of native coronary artery without angina pectoris; I10 Essential (primary) hypertension; I25.2 Old myocardial infarction; E11.9 Type 2 diabetes mellitus without complications; Z86.711 Personal history of pulmonary embolism; Z95.1 Presence of aortocoronary bypass graft; Z79.02 Long term (current) use of antithrombotics/antiplatelets; Z53.20 Procedure and treatment not carried out because of patient's decision for unspecified reasons
CPT/HCPCS: 36415; 71046; 80053; 84484; 85025; 93005; 93010; 99281

== ENCOUNTER → 2019-10-31 | Outpatient (CLI) | payer OTHER ==
--- NOTE | 2019-11-01 10:02 | RADIOLOGY REPORT (SQ) ---
EXAM DESCRIPTION: MRI HEAD COMBO IMAGES COMPLETED DATE/TIME: 10/31/2019 5:47 pm REASON FOR STUDY: I63.9 CEREBRAL INFARCTION, UNSPECIFIED I63.9 CEREBRAL INFARCTION, UNSPECIFIED COMPARISON: None. TECHNIQUE: Multiplanar imaging includes noncontrasted T1, T2, FLAIR, and Diffusion with ADC map seq uences. Contrast enhanced T1 images. Images stored on PACS. CONTRAST TYPE AND DOSE: 15 mL Prohance. RENAL FUNCTION: Not indicated. ACR Type II contrast agent associated with few, if any, unconfounded cases of NSF LIMITATIONS: None. FINDINGS: ANATOMY: No anomalies. Normal vascular flow voids. Pituitary fossa normal. CSF SPACES: Normal size and contour. No hemorrhage. CEREBRUM: A few high-signal intensity lesions scattered throughout the white matter on FLAIR imaging with distribution suggesting chronic microvascular ischemic change. Sulci and gyri normal in size and contour. No evidence of hemorrhage, mass or extraaxial fluid collection. No enhancing lesions. POSTERIOR FOSSA: No signal alteration. No hemorrhage. No edema, masses or mass effect. Internal audit ory canals, cerebello-pontine angles, mastoids normal. DIFFUSION: Negative for acute or subacute infarction. ORBITS: No masses. Globes normal. PARANASAL SINUSES: No fluid levels. Mucosa normal. OTHER: No other significant finding. IMPRESSION: NO ENHANCING LESIONS. MINIMAL MICROVASCULAR ISCHEMIC CHANGE. OTHERWISE NORMAL STUDY. EVIDENCE OF ACUTE STROKE: NO. TECHNICAL DOCUMENTATION: JOB ID: [id number] 2010 [employer]- All Rights Reserved Reading location - IP/workstation name: [email or web address]
== END ==
LOC: RAD 17:04
PROVIDERS: ATTEND Family Medicine
DX: I63.9 Cerebral infarction, unspecified (principal)
CPT/HCPCS: 70553; A9576

== ENCOUNTER → 2019-11-29 | Outpatient (CLI) | payer OTHER ==
--- NOTE | 2019-11-29 18:18 | RADIOLOGY REPORT (SQ) ---
EXAM DESCRIPTION: MRA HEAD WITHOUT IMAGES COMPLETED DATE/TIME: 11/29/2019 2:58 pm REASON FOR STUDY: (Z86.73)PRSNL HX OF TIA (TIA), AND CEREB INFRC W/O RESID DEFICITS I63.9 CEREBRAL INFARCTION, UNSPECIFIED Z86.73 PRSNL HX OF TIA (TIA), AND CEREB INFRC W/O RESID DEFI COMPARISON: None. TECHNIQUE: Axial 3-D [id number] acquisition imaging performed through the brain in the area of t he [place] of [place]. Images reformatted using 3-D MIPS. LIMITATIONS: None. FINDINGS: SOURCE IMAGES: No unexpected findings on source images. No large masses. 3-D MIP: No aneurysm. No occlusions. No significant stenosis. OTHER: No other significant finding. IMPRESSION: NORMAL MRA OF THE [place] OF [place]. TECHNICAL DOCUMENTATION: JOB ID: [id number] 2010 [employer]- All Rights Reserved Reading location - IP/workstation name: [email or web address]
--- NOTE | 2019-11-29 18:19 | RADIOLOGY REPORT (SQ) ---
EXAM DESCRIPTION: MRA NECK WITHOUT IMAGES COMPLETED DATE/TIME: 11/29/2019 2:58 pm REASON FOR STUDY: (Z86.73)PRSNL HX OF TIA (TIA), AND CEREB INFRC W/O RESID DEFICITS I63.9 CEREBRAL INFARCTION, UNSPECIFIED Z86.73 PRSNL HX OF TIA (TIA), AND CEREB INFRC W/O RESID DEFI COMPARISON: None. TECHNIQUE: Axial 2-D volume acquisition imaging through the extracranial carotid and vertebral arter ies with reformatting using 3-D MIPS. LIMITATIONS: None. FINDINGS: RIGHT CAROTID ARTERY: No stenosis or occlusive changes. Limited visualization of the orig in. LEFT CAROTID ARTERY: No stenosis or occlusive changes. Limited visualization of the origin. VERTEBRAL ARTERY: The extracranial portions of the vertebral basilar system are preserved without tanisha nosis. No aneurysmal dilatation or dissection is seen. OTHER: No other significant finding. IMPRESSION: NO SIGNIFICANT STENOSIS. COMMENT: Quality ID #[id number]: Measurements of distal internal carotid diameter were used as the denomin ator for stenosis measurement. TECHNICAL DOCUMENTATION: JOB ID: [id number] 2010 [employer]- All Rights Reserved Reading location - IP/workstation name: [email or web address]
== END ==
LOC: RAD 14:04
PROVIDERS: ATTEND Family Medicine
DX: Z86.73 Personal history of transient ischemic attack (TIA), and cerebral infarction without residual deficits (principal); I10 Essential (primary) hypertension; I25.10 Atherosclerotic heart disease of native coronary artery without angina pectoris; E11.9 Type 2 diabetes mellitus without complications
CPT/HCPCS: 70544; 70547